=== PATIENT | male | born 1960 | race Caucasian/White ===

== ENCOUNTER 2017-09-28 09:51 | Day surgery (SDC) | payer OTHER ==
[2017-08-27 14:03] VITALS: BMI 28.7
[~2017-09-28 09:51] MED LIST: LACTATED RINGERS 1,000 ML IV SCH; SODIUM CHLORIDE 0.9% 1,000 ML IV SCH; ceFAZolin 1,000 MG in SODIUM CHLORIDE 0.9% IRRIGATIO 250 ML IRRIGATION ONE; ceFAZolin IN SWFI 2 GM/20 ML SYRINGE IVP ONE
[2017-09-28] MEDS ORDERED: INSULIN ASPART 100 UNIT/ML 1 ML 10 ML VIAL SQ ONE (10:34)
[2017-09-28 10:44] LABS: Glucose,Whole Blood 272 mg/dL (75-99)
[2017-09-28 11:18] LABS: Anisocytosis Slight; Basophils # (A) 0.1 k/uL (0-0.2); Basophils % (A) 1 %; Eosinophils # (A) 0.2 k/uL (0-0.7); Eosinophils % (A) 2 %; HCT 46.9 % (39.0-53.0); Lymphocytes # (A) 1.2 k/uL (1.0-4.8); Lymphocytes % (A) 15 %; MCHC 34.1 g/dL (31.0-37.0); MCV 82.3 fL (80.0-100.0); Mean Platelet Volume 6.2; Monocytes # (A) 0.5 k/uL (0-1.0); Monocytes % (A) 7 %; Neutrophils # (A) 5.8 k/uL (1.3-7.7); Neutrophils % (A) 74 %; Platelet Count 193 k/uL (150-450); RDW 16.3 % (11.5-15.5); WBC 7.9 k/uL (3.8-10.6)
[2017-09-28 11:20] LABS: Anion Gap 14 mmol/L; Blood Urea Nitrogen 15 mg/dL (9-20); Calcium 9.4 mg/dL (8.4-10.2); Carbon Dioxide 24 mmol/L (22-30); Chloride 105 mmol/L (98-107); Glucose 306 mg/dL (74-99); Potassium 4.9 mmol/L (3.5-5.1); Sodium 143 mmol/L (137-145)
[2017-09-28] MEDS ORDERED: fentaNYL (PF) 50 MCG/ML 2 ML AMP ONE (12:09)
[2017-09-28] MEDS ORDERED: MIDAZOLAM 2 MG/2 ML VIAL ONE (12:09)
[2017-09-28] MEDS ORDERED: IOPAMIDOL-250 50ML BTL IV ONE (12:20)
[2017-09-28] MEDS ORDERED: IOPAMIDOL-370 50ML BTL INJ ONE ×2 (12:20)
[2017-09-28] MEDS ORDERED: LIDOCAINE 1% INJ 10MG/ML (20 ML MDV) ONE ×2 (12:32→12:57)
[2017-09-28] MEDS ORDERED: LIDOCAINE 1% INJ 10MG/ML (20 ML MDV) SQ ONE ×4 (12:47→12:59)
[2017-09-28] MEDS ORDERED: ACETAMINOPHEN IV (For NPO) 1,000 MG in EMPTY BAG 1 BAG IVPB ONE (14:25)
[2017-09-28] MEDS ORDERED: ACETAMINOPHEN TAB 325 MG TAB PO PRN (14:25)
--- NOTE | 2017-09-28 14:57 | CE ---
CARDIAC ELECTROPHYSIOLOGY REPORT Mr. Adams is a 57-year-old male patient who has severe ischemic cardiomyopathy, status post revascularization in the past, old ID, chronic LV systolic dysfunction, who has an ejection fraction of 29%, on medical treatment and was advised a single-chamber ICD for primary prevention of sudden cardiac . Patient is brought to the EP lab in a fasting state. Written informed consent was obtained prior to the procedure. The left shoulder area was prepped and draped as per protocol; 1% lidocaine was used for local anesthesia. An incision was made in the left pectoral area above his tattoo to avoid the tattoo and carried down to the level of the pectoralis muscle. A subfascial pocket was made. Hemostasis was assured. The left axillary vein was accessed at a single point under fluoroscopy and via appropriately- sized introducer sheath, the lead was positioned in the right heart. The Medtronic lead was positioned in the RV septum. This is a model #6935M, 62 cm length and serial number [id number]. R-waves were 10 mV, pacing impedance 653 ohms, pacing threshold 0.4 V at 0.5 milliseconds. Current was 0.5 milliamperes. The lead was secured to the underlying pectoralis fascia using 2 nonabsorbable sutures. Pocket was irrigated with antibiotic solution. Lead was connected through the generator (Medtronic single- chamber ICD, [id number], serial #[id number]. This was positioned in the subfascial pocket and the wound was closed in 3 layers and dressed per protocol. RESULTS: Successful single-chamber ICD implantation. DFT testing was deferred until 3 months. PLAN: Continue current medications. IV antibiotics and DFT testing in 3 months. MMODL / IJN: [id number] /
[2017-09-28] MEDS ORDERED: ceFAZolin IN SWFI 2 GM/20 ML SYRINGE IVP STA (17:09)
[2017-09-28] MEDS: LACTATED RINGERS 1,000 ML IV SCH (17:15)
[2017-09-28 17:17] LABS: Glucose,Whole Blood 221 mg/dL (75-99)
[2017-09-28] MEDS: glipiZIDE 10 MG TAB PO SCH (18:05)
[2017-09-28] MEDS: METOPROLOL TARTRATE 50 MG TAB PO SCH (20:20)
[2017-09-28 20:22] LABS: Glucose,Whole Blood 246 mg/dL (75-99)
[2017-09-28] MEDS ORDERED: ATORVASTATIN 40 MG TAB PO SCH (21:00)
[2017-09-28] MEDS: HYDROcodone/APAP 7.5-325MG 1 EACH TAB PO PRN (21:16)
[2017-09-28] MEDS: ceFAZolin IN SWFI 2 GM/20 ML SYRINGE IVP SCH (22:45)
[2017-09-29 03:28] VITALS: TEMP 97.8
[2017-09-29] MEDS: HYDROcodone/APAP 7.5-325MG 1 EACH TAB PO PRN (04:46)
[2017-09-29] MEDS: ceFAZolin IN SWFI 2 GM/20 ML SYRINGE IVP SCH ×2 (04:47→11:03)
[2017-09-29] MEDS ORDERED: ceFAZolin IN SWFI 2 GM/20 ML SYRINGE IVP SCH ×2 (05:00→11:00)
[2017-09-29 07:02] LABS: Glucose,Whole Blood 254 mg/dL (75-99)
[2017-09-29 07:32] VITALS: BP 157/90; PULSE 74; RESP 18
[2017-09-29] MEDS: METOPROLOL TARTRATE 50 MG TAB PO SCH (08:00)
[2017-09-29] MEDS: glipiZIDE 10 MG TAB PO SCH (08:01)
--- NOTE | 2017-09-29 08:12 | XR ---
EXAMINATION TYPE: XR chest 2V DATE OF EXAM: 09/29/2017 COMPARISON: Prior chest x-ray 02/27/2017 HISTORY: Lead placement check TECHNIQUE: Frontal and lateral views of the chest are obtained. FINDINGS: Intracardiac defibrillator lead is overlying the right ventricle, patient post sternotomy. Heart size is stable. No evident pneumothorax or pleural effusion. Interstitium is prominent. Apical pleural scarring is again noted. Prominent lung volumes suggest underlying COPD. IMPRESSION: No evident complication status post defibrillator placement.
[2017-09-29] MEDS ORDERED: FLUoxetine HCL 20 MG CAP PO SCH (09:00)
[2017-09-29] MEDS ORDERED: CLOPIDOGREL 75 MG TAB PO SCH (09:00)
[2017-09-29] MEDS ORDERED: EMPAGLIFLOZIN PO SCH (09:00)
[2017-09-29] MEDS ORDERED: FUROSEMIDE 20 MG TAB PO SCH (09:00)
[2017-09-29] MEDS ORDERED: ASPIRIN 325 MG TAB PO SCH (09:00)
[2017-09-29] MEDS ORDERED: POTASSIUM CHLORIDE ER 20 MEQ TAB.ER PO SCH (09:00)
[2017-09-29] MEDS ORDERED: ISOSORBIDE MONONITRATE ER 30 MG TAB.ER.24H PO SCH (09:00)
[2017-09-29] MEDS ORDERED: LOSARTAN 50 MG TAB PO SCH (09:00)
[2017-09-29] MEDS ORDERED: LINAGLIPTIN PO SCH (09:00)
--- NOTE | 2017-09-29 09:42 | P.DS ---
Providers Attending physician: Zak Dow Primary care physician: [facility] Course: Patient is doing well. He has no chest discomfort dizziness lightheadedness. He's ablating the hallways. There is a bit of soakage of the dressing but there is no hematoma. Blood pressure 157/90 mmHg pulse rate in the 70s afebrile heart sounds are normal normal S1 normal S2 no murmurs or gallops no rub breath sounds are clear no rhonchi no crackles Abdomen soft nontender Extremity is a warm no edema Impression Severe ischemic cardio myopathy, status post single chamber ICD implant Hypertension Old MS CHF class II Status post coronary artery bypass grafting Suggest Top metoprolol and start carvedilol 6.25 mg twice daily Stop oral potassium Start Aldactone 25 g by mouth daily Discharge home after completion of IV antibiotics Patient Condition at Discharge: Stable Plan - Discharge Summary Discharge Rx Participant: No New Discharge Prescriptions: No Action Aspirin 325 mg PO DAILY #30 tab Clopidogrel [Plavix] 75 mg PO DAILY #30 tab Isosorbide Mononitrate ER [Imdur] 30 mg PO DAILY #30 tab.er.24h Losartan [Cozaar] 50 mg PO DAILY #30 tab Metoprolol Tartrate [Lopressor] 50 mg PO BID #60 tab Furosemide [Lasix] 20 mg PO DAILY #30 tab Umeclidinium Brm/Vilanterol Tr [Anoro Ellipta 62.5-25 Mcg INH] 1 puff INHALATION DAILY Hydrocodone/Acetaminophen [[place] 7.5-325] 1 tab PO Q8HR PRN PRN Reason: Pain Empagliflozin/Linagliptin [Glyxambi 25 mg-5 mg Tablet] 1 each PO DAILY FLUoxetine HCL 20 mg PO DAILY Atorvastatin [Lipitor] 40 mg PO HS glipiZIDE [Glucotrol] 10 mg PO BID Potassium Chloride ER [K-Dur 10] 20 meq PO DAILY Discharge Medication List Aspirin 325 mg PO DAILY #30 tab 02/13/17 [Rx] Clopidogrel [Plavix] 75 mg PO DAILY #30 tab 02/13/17 [Rx] Furosemide [Lasix] 20 mg PO DAILY #30 tab 02/13/17 [Rx] Isosorbide Mononitrate ER [Imdur] 30 mg PO DAILY #30 tab.er.24h 02/13/17 [Rx] Losartan [Cozaar] 50 mg PO DAILY #30 tab 02/13/17 [Rx] Metoprolol Tartrate [Lopressor] 50 mg PO BID #60 tab 02/13/17 [Rx] Atorvastatin [Lipitor] 40 mg PO HS 08/27/17 [History] Empagliflozin/Linagliptin [Glyxambi 25 mg-5 mg Tablet] 1 each PO DAILY 08/27/17 [History] FLUoxetine HCL 20 mg PO DAILY 08/27/17 [History] Hydrocodone/Acetaminophen [[place] 7.5-325] 1 tab PO Q8HR PRN 08/27/17 [History] Potassium Chloride ER [K-Dur 10] 20 meq PO DAILY 08/27/17 [History] Umeclidinium Brm/Vilanterol Tr [Anoro Ellipta 62.5-25 Mcg INH] 1 puff INHALATION DAILY 08/27/17 [History] glipiZIDE [Glucotrol] 10 mg PO BID 08/27/17 [History]
== END 2017-09-29 12:19 | disposition home or self-care (01) ==
LOC: CATHEP 09:51 → 3OBS 13:46 → CATHEP 09-29 12:19
PROVIDERS: ATTEND Internal Medicine Clinical Cardiac Electrophysiology
DX: I25.5 Ischemic cardiomyopathy (principal); I11.0 Hypertensive heart disease with heart failure; I50.22 Chronic systolic (congestive) heart failure; Z00.6 Encounter for examination for normal comparison and control in clinical research program; I25.10 Atherosclerotic heart disease of native coronary artery without angina pectoris; E78.5 Hyperlipidemia, unspecified; E11.9 Type 2 diabetes mellitus without complications; I25.2 Old myocardial infarction; Z95.1 Presence of aortocoronary bypass graft; Z79.84 Long term (current) use of oral hypoglycemic drugs; Z79.02 Long term (current) use of antithrombotics/antiplatelets; Z79.82 Long term (current) use of aspirin; Z79.899 Other long term (current) drug therapy; Z79.51 Long term (current) use of inhaled steroids; Z87.891 Personal history of nicotine dependence
CPT/HCPCS: 33249; 80048; 85025; 71046; C1769 ×3; C1892; C1895; C1722; J2250; J0690 ×3; J2001; J3010; J0131; Q9966

== ENCOUNTER → 2017-12-18 | Outpatient (CLI) | payer OTHER ==
[2017-12-18 14:04] LABS: HGB 14.8 gm/dL (13.0-17.5); MCH 27.6 pg (25.0-35.0); MCHC 32.1 g/dL (31.0-37.0); Platelet Count 185 k/uL (150-450); RBC 5.35 m/uL (4.30-5.90); RDW 14.2 % (11.5-15.5); WBC 6.8 k/uL (3.8-10.6)
[2017-12-18 14:22] LABS: Anion Gap 10 mmol/L; Blood Urea Nitrogen 19 mg/dL (9-20); Carbon Dioxide 27 mmol/L (22-30); Chloride 106 mmol/L (98-107); Glucose 260 mg/dL (74-99); Sodium 143 mmol/L (137-145)
== END | disposition home or self-care (01) ==
LOC: LABPAT 13:00
PROVIDERS: ATTEND Internal Medicine Clinical Cardiac Electrophysiology
DX: Z01.812 Encounter for preprocedural laboratory examination (principal); I25.5 Ischemic cardiomyopathy; I25.810 Atherosclerosis of coronary artery bypass graft(s) without angina pectoris
CPT/HCPCS: 36415; 80051; 82565; 82947; 84520; 85027

== ENCOUNTER 2017-12-29 06:00 | Day surgery (SDC) | payer OTHER ==
[2017-12-28 12:05] VITALS: BMI 28.5
[~2017-12-29 06:00] MED LIST changes: -SODIUM CHLORIDE 0.9% 1,000 ML IV SCH; -ceFAZolin 1,000 MG in SODIUM CHLORIDE 0.9% IRRIGATIO 250 ML IRRIGATION ONE; -ceFAZolin IN SWFI 2 GM/20 ML SYRINGE IVP ONE
[2017-12-29] MEDS ORDERED: SODIUM CHLORIDE 0.9% 1,000 ML IV SCH (06:15)
[2017-12-29 06:31] VITALS: TEMP 99.1
[2017-12-29 07:11] LABS: Glucose,Whole Blood 186 mg/dL (75-99)
[2017-12-29] MEDS ORDERED: MIDAZOLAM 2 MG/2 ML VIAL ONE (07:21)
[2017-12-29] MEDS ORDERED: PROPOFOL 10 MG/ML 20 ML VIAL IV ONE (07:21)
[2017-12-29 08:08] VITALS: RESP 18
--- NOTE | 2017-12-29 08:33 | P.PCN ---
Preoperative Diagnosis: Diagnosis Congestive heart failure and cardio myopathy status post ICD implant in the last 3 months. Patient admitted for defibrillation level testing Patient on appropriate medical treatment ICD interrogation Patient has a Medtronic single chamber ICD single coil that was implanted on 11/2017 by myself Pacing impedance 475 ohms Defibrillation impedance, RV, 62 ohms Pacing threshold 0.75 V at 0.4 ms R waves greater than 12 mV Defibrillation level testing was performed under anesthesia A shock on T wave protocol was used to induce ventricular fibrillation. This was adequately and appropriately detected at least sensitivity with 2-3 dropouts but unsuccessfully defibrillated with 10 J shock and once again unsuccessfully defibrillated with a 20 J shock. External shock was used to defibrillated the patient The charge time was 4.1 seconds delivered energy 20 J impedance 60 ohms After 3 minutes once the patient's blood pressure stabilized defibrillation level testing was once again performed in reverse polarity. Ventricular fibrillation was induced and detected with up to 3 dropouts. A 20 J shock in reverse polarity was unsuccessful. A 30 J shock in reverse polarity successfully internally defibrillated the patient. Charge time 6.34 seconds, shocking impedance 60 ohms, delivered energy 30 J. No post shock noise Device was then reprogrammed in reverse polarity Appropriate antitachycardia pacing cardioversion defibrillations reprogrammed. First cardioversion and defibrillation at maximum output as well as subsequently. Sensitivity reprogrammed to 0.3 mV Plan Continue current medications, follow-up with Dr. Becker Repeat DFT in one year Disposition: same day
[2017-12-29 08:43] VITALS: BP 141/77; PULSE 66
[2017-12-29] MEDS ORDERED: MORPHINE SULFATE 4 MG/ML SYRINGE IV PRN (21:43)
[2017-12-29] MEDS ORDERED: LACTATED RINGERS 1,000 ML IV SCH (21:45)
== END 2017-12-29 08:46 | disposition home or self-care (01) ==
LOC: CATHEP 06:00
PROVIDERS: ATTEND Internal Medicine Clinical Cardiac Electrophysiology
DX: I25.5 Ischemic cardiomyopathy (principal); I25.10 Atherosclerotic heart disease of native coronary artery without angina pectoris; I11.0 Hypertensive heart disease with heart failure; I50.9 Heart failure, unspecified; Z87.891 Personal history of nicotine dependence; I25.2 Old myocardial infarction; E78.5 Hyperlipidemia, unspecified; Z79.84 Long term (current) use of oral hypoglycemic drugs; E11.9 Type 2 diabetes mellitus without complications; Z45.02 Encounter for adjustment and management of automatic implantable cardiac defibrillator; G47.33 Obstructive sleep apnea (adult) (pediatric); Z99.89 Dependence on other enabling machines and devices; Z79.02 Long term (current) use of antithrombotics/antiplatelets; Z79.82 Long term (current) use of aspirin; Z79.899 Other long term (current) drug therapy
CPT/HCPCS: 93642; 76000; J2250; J2704

== ENCOUNTER 2018-03-12 16:34 | Emergency (ER) | payer OTHER ==
[2018-03-12 16:39] VITALS: RESP 18
[2018-03-12] MEDS ORDERED: SODIUM CHLORIDE 0.9% 1,000 ML IV STA (17:18)
[2018-03-12 17:58] LABS: INR 0.9 (<1.2); Partial Thromboplastin Time 23.6 sec (22.0-30.0); Prothrombin Time 10.2 sec (9.0-12.0)
[2018-03-12 18:01] LABS: ALT 48 U/L (21-72); AST 52 U/L (17-59); Alkaline Phosphatase 66 U/L (38-126); Amylase 37 U/L (30-110); Anion Gap 10 mmol/L; Blood Urea Nitrogen 9 mg/dL (9-20); Calcium 9.1 mg/dL (8.4-10.2); Carbon Dioxide 22 mmol/L (22-30); Chloride 107 mmol/L (98-107); Glucose 166 mg/dL (74-99); Lipase 95 U/L (23-300); Sodium 139 mmol/L (137-145); Total Bilirubin 0.6 mg/dL (0.2-1.3); Total Protein 6.8 g/dL (6.3-8.2)
[2018-03-12 18:08] LABS: Appearance,Urine Cloudy (Clear); Bilirubin,Urine Negative (Negative); Blood,Urine Large (Negative); Budding Yeast,Urine Many /hpf; Color,Urine Red; Glucose,Urine (UA) 4+ (Negative); Ketones,Urine Trace (Negative); Leukocyte Esterase,Urine Trace (Negative); Nitrite,Urine Negative (Negative); PH, Urine 5.5 (5.0-8.0); Protein,Urine 1+ (Negative); RBC,Urine >182 /hpf (0-5); Specific Gravity,Urine 1.023 (1.001-1.035); Urobilinogen,Urine <2.0 mg/dL (<2.0); WBC,Urine 1 /hpf (0-5)
--- NOTE | 2018-03-12 18:15 | CT ---
EXAMINATION TYPE: CT abdomen pelvis wo con DATE OF EXAM: 03/12/2018 COMPARISON: None HISTORY: Hematuria. CT DLP: 694.3 mGycm Automated exposure control for dose reduction was used. TECHNIQUE: Helical acquisition of images was performed from the lung bases through the pelvis. FINDINGS: Lung bases are clear. There is no pleural effusion. Heart size is normal. There is no pericardial eff usion. There is low attenuation throughout the liver related to fatty infiltration. Spleen appears normal. T here is no pancreatic mass. There is vascular calcification. Gallbladder appears normal. Bile ducts a re not dilated. There is no adrenal mass. There is 3 cm cortical cyst posterior left kidney. There are multiple renal calcifications bilaterally. There is no hydronephrosis. Ureters are not dilated. There is no retrope ritoneal adenopathy. Abdominal aorta is atheromatous. Bladder distends smoothly. There is prostatic calcification. There is no inguinal hernia. There is no free fluid in the pelvis. I see no intestinal wall thickening. There are no dilated loops. The appen nu appears normal. There is no mesenteric edema or adenopathy. IMPRESSION: FATTY INFILTRATION OF LIVER. ATHEROSCLEROTIC VASCULAR DISEASE. NUMEROUS BILATERAL RENAL CALCULI WITHO UT EVIDENCE OF OBSTRUCTION.
--- NOTE | 2018-03-12 18:15 | ED ---
Abdominal Pain HPI - General Chief Complaint: Abdominal Pain Stated Complaint: Blood in Urine Time Seen by Provider: 03/12/18 17:03 Source: patient, RN notes reviewed Mode of arrival: ambulatory Limitations: no limitations - History of Present Illness Initial Comments: 58-year-old male presents emergency Department with chief complaint of hematuria. Patient states she's noticed several times a day that he had blood in his urine. He states it is painless. Denies any prior kidney stones no prior prostate infections or bladder infections. Patient states he has no complaints other than he noticed the blood. Patient does take Plavix. Patient states he is a former smoker quit one year ago. Patient denies any nausea and diarrhea constipation no headache no dizziness no chest pain or shortness breath. - Related Data Home Medications Medication Instructions Recorded Confirmed Empagliflozin/Linagliptin 1 tab PO DAILY 08/27/17 03/12/18 [Glyxambi 25 mg-5 mg Tablet] FLUoxetine HCL 20 mg PO DAILY 08/27/17 03/12/18 Hydrocodone/Acetaminophen [[place] 1 tab PO TID 08/27/17 03/12/18 7.5-325] glipiZIDE [Glucotrol] 10 mg PO BID 08/27/17 03/12/18 Furosemide [Lasix] 40 mg PO DAILY 12/28/17 03/12/18 Aspirin [Adult Low Dose Aspirin EC] 81 mg PO DAILY 03/12/18 03/12/18 Atorvastatin [Lipitor] 80 mg PO HS 03/12/18 03/12/18 Carvedilol [Coreg] 9.375 mg PO BID 03/12/18 03/12/18 Previous Rx's Medication Instructions Recorded Clopidogrel [Plavix] 75 mg PO DAILY #30 tab 02/13/17 Isosorbide Mononitrate ER [Imdur] 30 mg PO DAILY #30 tab.er.24h 02/13/17 Losartan [Cozaar] 50 mg PO DAILY #30 tab 02/13/17 Spironolactone [Aldactone] 25 mg PO DAILY #90 tablet 09/29/17 Allergies Allergy/AdvReac Type Severity Reaction Status Date / Time No Known Allergies Allergy Verified 03/12/18 17:27 Review of Systems ROS Statement: Those systems with pertinent positive or pertinent negative responses have been documented in the HPI. ROS Other: All systems not noted in ROS Statement are negative. Past Medical History Past Medical History: Coronary Artery Disease (CAD), COPD, Diabetes Mellitus, Hyperlipidemia, Hypertension, Myocardial Infarction (MA), Musculoskeletal Disorder, Sleep Apnea/CPAP/BIPAP Additional Past Medical History / Comment(s): CMP; HAS AICD. See Dr Dow's H &P. LOWER BACK, HIP PAIN, R/T HX MANUAL LABOR. USES CPAP. HX MA's 1997, 2004 , 2010, 2016 Last Myocardial Infarction Date:: 01/2017 History of Any Multi-Drug Resistant Organisms: None Reported Past Surgical History: AICD, Coronary Bypass/CABG, Heart Catheterization With Stent Additional Past Surgical History / Comment(s): 1 VESSEL CABG 01/2017. STENT X3. Hemorrhoidectomy. AICD, [employer], 10/08/17. Past Anesthesia/Blood Transfusion Reactions: No Reported Reaction Date of Last Stent Placement:: 2016 Type of Cardiac Device: AICD Device Placement Date:: 09/28/17 Past Psychological History: Depression Smoking Status: Former smoker Past Alcohol Use History: None Reported Past Drug Use History: Marijuana - Past Family History Father Family Medical History: Cancer Mother Family Medical History: Coronary Artery Disease (CAD), Diabetes Mellitus Brother(s) Family Medical History: Coronary Artery Disease (CAD), Diabetes Mellitus General Exam Limitations: no limitations General appearance: alert, in no apparent distress Head exam: Present: atraumatic, normocephalic, normal inspection Eye exam: Present: normal appearance, PERRL, EOMI. Absent: scleral icterus, conjunctival injection, periorbital swelling Respiratory exam: Present: normal lung sounds bilaterally. Absent: respiratory distress, wheezes, rales, rhonchi, stridor Cardiovascular Exam: Present: regular rate, normal rhythm, normal heart sounds. Absent: systolic murmur, diastolic murmur, rubs, gallop, clicks GI/Abdominal exam: Present: soft, normal bowel sounds. Absent: distended, tenderness, guarding, rebound, rigid Back exam: Absent: CVA tenderness (R), CVA tenderness (L) Psychiatric exam: Present: normal affect, normal mood Skin exam: Present: warm, dry, intact, normal color. Absent: rash Course Vital Signs 03/12/18 03/12/18 16:36 18:47 Temperature 97.4 F L 98.2 F Pulse Rate 85 69 Respiratory 18 18 Rate Blood Pressure 181/94 119/69 O2 Sat by Pulse 99 100 Oximetry Medical Decision Making - Medical Decision Making 58-year-old male presents emergency Department chief complaint of painless hematuria. Patient lab work, CT. There is no definite mass on CT. Patient does have bilateral renal stones though no obstructing stone in the ureter. Patient has no signs of infection. Patient will follow-up with urology for cystoscopy and further evaluation as he is a former smoker. Patient was given return parameters all labs and CT reviewed with patient and family. - Lab Data Result diagrams: 03/12/18 17:30 03/12/18 17:30 Lab Results 03/12/18 03/12/18 03/12/18 Range/Units 17:30 17:30 17:30 WBC 5.8 (3.8-10.6) k/uL RBC 5.31 (4.30-5.90) m/uL Hgb 14.9 (13.0-17.5) gm/dL Hct 45.0 (39.0-53.0) % MCV 84.8 (80.0-100.0) fL MCH 28.1 (25.0-35.0) pg MCHC 33.1 (31.0-37.0) g/dL RDW 13.9 (11.5-15.5) % Plt Count 160 (150-450) k/uL Neutrophils % 70 % Lymphocytes % 18 % Monocytes % 6 % Eosinophils % 3 % Basophils % 1 % Neutrophils # 4.1 (1.3-7.7) k/uL Lymphocytes # 1.1 (1.0-4.8) k/uL Monocytes # 0.4 (0-1.0) k/uL Eosinophils # 0.2 (0-0.7) k/uL Basophils # 0.1 (0-0.2) k/uL PT 10.2 (9.0-12.0) sec INR 0.9 (<1.2) APTT 23.6 (22.0-30.0) sec Sodium 139 (137-145) mmol/L Potassium 5.0 (3.5-5.1) mmol/L Chloride 107 (98-107) mmol/L Carbon Dioxide 22 (22-30) mmol/L Anion Gap 10 mmol/L BUN 9 (9-20) mg/dL Creatinine 0.65 L (0.66-1.25) mg/dL Est GFR (CKD-EPI)AfAm >90 (>60 ml/min/1.73 sqM) Est GFR (CKD-EPI)NonAf >90 (>60 ml/min/1.73 sqM) Glucose 166 H (74-99) mg/dL Calcium 9.1 (8.4-10.2) mg/dL Total Bilirubin 0.6 (0.2-1.3) mg/dL AST 52 (17-59) U/L ALT 48 (21-72) U/L Alkaline Phosphatase 66 (38-126) U/L Total Protein 6.8 (6.3-8.2) g/dL Albumin 4.0 (3.5-5.0) g/dL Amylase 37 (30-110) U/L Lipase 95 (23-300) U/L Urine Color Urine Appearance (Clear) Urine pH (5.0-8.0) Ur Specific [place] (1.001-1.035) Urine Protein (Negative) Urine Glucose (UA) (Negative) Urine Ketones (Negative) Urine Blood (Negative) Urine Nitrite (Negative) Urine Bilirubin (Negative) Urine Urobilinogen (<2.0) mg/dL Ur Leukocyte Esterase (Negative) Urine RBC (0-5) /hpf Urine WBC (0-5) /hpf Urine Yeast (Budding) (None) /hpf 03/12/18 Range/Units 17:30 WBC (3.8-10.6) k/uL RBC (4.30-5.90) m/uL Hgb (13.0-17.5) gm/dL Hct (39.0-53.0) % MCV (80.0-100.0) fL MCH (25.0-35.0) pg MCHC (31.0-37.0) g/dL RDW (11.5-15.5) % Plt Count (150-450) k/uL Neutrophils % % Lymphocytes % % Monocytes % % Eosinophils % % Basophils % % Neutrophils # (1.3-7.7) k/uL Lymphocytes # (1.0-4.8) k/uL Monocytes # (0-1.0) k/uL Eosinophils # (0-0.7) k/uL Basophils # (0-0.2) k/uL PT (9.0-12.0) sec INR (<1.2) APTT (22.0-30.0) sec Sodium (137-145) mmol/L Potassium (3.5-5.1) mmol/L Chloride (98-107) mmol/L Carbon Dioxide (22-30) mmol/L Anion Gap mmol/L BUN (9-20) mg/dL Creatinine (0.66-1.25) mg/dL Est GFR (CKD-EPI)AfAm (>60 ml/min/1.73 sqM) Est GFR (CKD-EPI)NonAf (>60 ml/min/1.73 sqM) Glucose (74-99) mg/dL Calcium (8.4-10.2) mg/dL Total Bilirubin (0.2-1.3) mg/dL AST (17-59) U/L ALT (21-72) U/L Alkaline Phosphatase (38-126) U/L Total Protein (6.3-8.2) g/dL Albumin (3.5-5.0) g/dL Amylase (30-110) U/L Lipase (23-300) U/L Urine Color Red Urine Appearance Cloudy (Clear) Urine pH 5.5 (5.0-8.0) Ur Specific [place] 1.023 (1.001-1.035) Urine Protein 1+ H (Negative) Urine Glucose (UA) 4+ H (Negative) Urine Ketones Trace H (Negative) Urine Blood Large H (Negative) Urine Nitrite Negative (Negative) Urine Bilirubin Negative (Negative) Urine Urobilinogen <2.0 (<2.0) mg/dL Ur Leukocyte Esterase Trace H (Negative) Urine RBC >182 H (0-5) /hpf Urine WBC 1 (0-5) /hpf Urine Yeast (Budding) Many H (None) /hpf Disposition Clinical Impression: Hematuria Disposition: HOME SELF-CARE Condition: Stable Instructions: Hematuria (ED) Additional Instructions: Please return to the Emergency Department if symptoms worsen or any other concerns. Is patient prescribed a controlled substance at d/c from ED?: No Referrals: Mike Olivera MD [Primary Care Provider] - 1-2 days Jb Snow MD [STAFF PHYSICIAN] - 1-2 days Time of Disposition: 19:20
[2018-03-12 18:48] VITALS: BP 119/69; PULSE 69; TEMP 98.2
[2018-03-12 19:09] LABS: Basophils # (A) 0.1 k/uL (0-0.2); Basophils % (A) 1 %; Eosinophils # (A) 0.2 k/uL (0-0.7); Eosinophils % (A) 3 %; HGB 14.9 gm/dL (13.0-17.5); Lymphocytes # (A) 1.1 k/uL (1.0-4.8); Lymphocytes % (A) 18 %; MCH 28.1 pg (25.0-35.0); MCHC 33.1 g/dL (31.0-37.0); MCV 84.8 fL (80.0-100.0); Mean Platelet Volume 7.1; Monocytes # (A) 0.4 k/uL (0-1.0); Monocytes % (A) 6 %; Neutrophils # (A) 4.1 k/uL (1.3-7.7); Neutrophils % (A) 70 %; Platelet Count 160 k/uL (150-450); RBC 5.31 m/uL (4.30-5.90); RDW 13.9 % (11.5-15.5); WBC 5.8 k/uL (3.8-10.6)
== END 2018-03-12 19:37 | disposition home or self-care (01) ==
LOC: EC 16:34
DX: R31.9 Hematuria, unspecified (principal); N20.0 Calculus of kidney; I25.10 Atherosclerotic heart disease of native coronary artery without angina pectoris; J44.9 Chronic obstructive pulmonary disease, unspecified; E11.9 Type 2 diabetes mellitus without complications; E78.5 Hyperlipidemia, unspecified; I10 Essential (primary) hypertension; I25.2 Old myocardial infarction; G47.30 Sleep apnea, unspecified; Z99.89 Dependence on other enabling machines and devices; F32.9 Major depressive disorder, single episode, unspecified; Z87.891 Personal history of nicotine dependence; Z79.02 Long term (current) use of antithrombotics/antiplatelets; Z79.82 Long term (current) use of aspirin; Z79.891 Long term (current) use of opiate analgesic; Z79.84 Long term (current) use of oral hypoglycemic drugs; Z79.899 Other long term (current) drug therapy; Z95.1 Presence of aortocoronary bypass graft; Z95.5 Presence of coronary angioplasty implant and graft; Z95.810 Presence of automatic (implantable) cardiac defibrillator
CPT/HCPCS: 36415; 74176; 80053; 81001; 82150; 83690; 85025; 85610; 85730; 96360; 99284

== ENCOUNTER → 2018-05-26 | Outpatient (CLI) | payer OTHER ==
[2018-05-26 10:16] LABS: HCT 50.5 % (39.0-53.0); HGB 16.2 gm/dL (13.0-17.5); MCH 27.4 pg (25.0-35.0); MCHC 32.1 g/dL (31.0-37.0); MCV 85.5 fL (80.0-100.0); Mean Platelet Volume 6.4; Platelet Count 233 k/uL (150-450); RDW 14.1 % (11.5-15.5); WBC 7.5 k/uL (3.8-10.6)
[2018-05-26 17:42] LABS: Anion Gap 8.5 mmol/L (4.00-12.00); Carbon Dioxide 26.5 mmol/L (21.6-31.8); Potassium 4.5 mmol/L (3.5-5.5)
== END | disposition home or self-care (01) ==
LOC: LABWHC1 09:09
PROVIDERS: ATTEND Internal Medicine Cardiovascular Disease
DX: E78.2 Mixed hyperlipidemia (principal)
CPT/HCPCS: 36415; 80051; 80061; 82565; 84443; 84450; 84460; 84520; 85027

== ENCOUNTER 2018-06-30 11:22 | Inpatient (IN) | payer OTHER ==
--- NOTE | 2018-06-30 12:01 | ED ---
General Adult HPI - General Chief complaint: Weakness Stated complaint: Dizzy Time Seen by Provider: 06/30/18 11:31 Source: patient, RN notes reviewed, old records reviewed Mode of arrival: ambulatory Limitations: no limitations - History of Present Illness Initial comments: 58-year-old male presenting for evaluation of dyspnea, increased generalized we akness, lightheadedness. Patient has history of ischemic cardiomyopathy status post open-heart surgery and AICD placement. He is presenting from the master esthetician's office. He was sent to the emergency department with concerns for worsening congestive heart failure. Patient denies significant weight gain. He does report some mild lower extremity swelling. He is also complaining of ongoing diarrhea and some mild abdominal cramping. No vomiting. No fever or chills. No cough or URI symptoms. - Related Data Home Medications Medication Instructions Recorded Confirmed Empagliflozin/Linagliptin 1 tab PO DAILY 08/27/17 06/30/18 [Glyxambi 25 mg-5 mg Tablet] FLUoxetine HCL 20 mg PO DAILY 08/27/17 06/30/18 glipiZIDE [Glucotrol] 10 mg PO BID 08/27/17 06/30/18 Atorvastatin [Lipitor] 80 mg PO HS 03/12/18 06/30/18 Carvedilol [Coreg] 6.25 mg PO BID 03/12/18 06/30/18 Hydrocodone/Acetaminophen [[place] 1 tab PO TID PRN 06/30/18 06/30/18 10-325] Warfarin [Coumadin] 2.5 mg PO SUTUTHSA 06/30/18 06/30/18 Warfarin [Coumadin] 5 mg PO MOWEFR 06/30/18 06/30/18 Previous Rx's Medication Instructions Recorded Isosorbide Mononitrate ER [Imdur] 30 mg PO DAILY #30 tab.er.24h 02/13/17 Losartan [Cozaar] 50 mg PO DAILY #30 tab 02/13/17 Spironolactone [Aldactone] 25 mg PO DAILY #90 tablet 09/29/17 Allergies Allergy/AdvReac Type Severity Reaction Status Date / Time No Known Allergies Allergy Verified 06/30/18 11:52 Review of Systems ROS Statement: Those systems with pertinent positive or pertinent negative responses have been documented in the HPI. ROS Other: All systems not noted in ROS Statement are negative. Past Medical History Past Medical History: Coronary Artery Disease (CAD), COPD, Diabetes Mellitus, Hyperlipidemia, Hypertension, Myocardial Infarction (NE), Musculoskeletal Disorder, Sleep Apnea/CPAP/BIPAP Additional Past Medical History / Comment(s): CMP; HAS AICD. See Dr Dow's H&P. LOWER BACK, HIP PAIN, R/T HX MANUAL LABOR. USES CPAP. HX NE's 1997, 2004, 2010, 2016 Last Myocardial Infarction Date:: 01/2017 History of Any Multi-Drug Resistant Organisms: None Reported Past Surgical History: AICD, Coronary Bypass/CABG, Heart Catheterization With Stent Additional Past Surgical History / Comment(s): 1 VESSEL CABG 01/2017. STENT X3. Hemorrhoidectomy. AICD, [employer], 10/08/17. Past Anesthesia/Blood Transfusion Reactions: No Reported Reaction Date of Last Stent Placement:: 2016 Type of Cardiac Device: AICD Device Placement Date:: 09/28/17 Past Psychological History: Depression Smoking Status: Former smoker - Past Family History Father Family Medical History: Cancer Mother Family Medical History: Coronary Artery Disease (CAD), Diabetes Mellitus Brother(s) Family Medical History: Coronary Artery Disease (CAD), Diabetes Mellitus General Exam Limitations: no limitations General appearance: alert, in no apparent distress Head exam: Present: atraumatic, normocephalic Eye exam: Present: normal appearance, PERRL ENT exam: Present: mucous membranes dry Neck exam: Present: normal inspection. Absent: tenderness, meningismus Respiratory exam: Present: rales, decreased breath sounds (Bilateral bases). Absent: respiratory distress Cardiovascular Exam: Present: regular rate, normal rhythm GI/Abdominal exam: Present: soft, distended. Absent: tenderness Extremities exam: Present: pedal edema (trace) Neurological exam: Present: alert, oriented X3, CN II-XII intact. Absent: motor sensory deficit Psychiatric exam: Present: normal affect, normal mood Skin exam: Present: warm, dry, intact, pallor. Absent: cyanosis, diaphoretic Course Vital Signs 06/30/18 06/30/18 06/30/18 11:50 12:13 12:30 Temperature 97.4 F L Pulse Rate 95 96 Respiratory 16 20 Rate Blood Pressure 102/69 111/83 111/82 O2 Sat by Pulse 98 98 97 Oximetry 06/30/18 06/30/18 06/30/18 13:00 13:30 14:00 Temperature Pulse Rate 94 96 97 Respiratory 20 19 21 Rate Blood Pressure 111/84 101/72 107/76 O2 Sat by Pulse 94 L 98 96 Oximetry 06/30/18 14:30 Temperature Pulse Rate 98 Respiratory 18 Rate Blood Pressure 106/77 O2 Sat by Pulse 98 Oximetry EKG Findings - EKG Comments: EKG Findings:: EKG: Normal sinus rhythm, voltage, no ST segment elevation, rate of 96, SD interval 162, QRS duration 94, QTC 500. Medical Decision Making - Medical Decision Making 58-year-old male presenting with general weakness, dyspnea. Patient has bilateral rales and decreased breath sounds bilaterally. Chest x-ray shows pulmonary vascular congestion, bilateral pleural effusion. Patient has normal C BC, INR is supratherapeutic at 4.8. He has an elevated BNP, mildly elevated troponin likely secondary to heart failure. Patient started on IV diuretics. He will be admitted for telemetry, cardiology consultation, and IV diuresis. Case discussed with both patient's primary care physician Dr. Olivera and his master esthetician Dr. José. - Lab Data Result diagrams: 06/30/18 12:13 06/30/18 12:13 Lab Results 06/30/18 06/30/18 06/30/18 Range/Units 12:13 12:13 12:13 WBC 9.1 (3.8-10.6) k/uL RBC 4.80 (4.30-5.90) m/uL Hgb 13.1 D (13.0-17.5) gm/dL Hct 40.7 (39.0-53.0) % MCV 84.9 (80.0-100.0) fL MCH 27.4 (25.0-35.0) pg MCHC 32.2 (31.0-37.0) g/dL RDW 14.8 (11.5-15.5) % Plt Count 314 (150-450) k/uL Neutrophils % 79 % Lymphocytes % 13 % Monocytes % 5 % Eosinophils % 1 % Basophils % 1 % Neutrophils # 7.3 (1.3-7.7) k/uL Lymphocytes # 1.2 (1.0-4.8) k/uL Monocytes # 0.5 (0-1.0) k/uL Eosinophils # 0.1 (0-0.7) k/uL Basophils # 0.1 (0-0.2) k/uL Hypochromasia Moderate Poikilocytosis Slight PT (9.0-12.0) sec INR (<1.2) APTT (22.0-30.0) sec Sodium 139 (137-145) mmol/L Potassium 4.2 (3.5-5.1) mmol/L Chloride 106 (98-107) mmol/L Carbon Dioxide 22 (22-30) mmol/L Anion Gap 11 mmol/L BUN 17 (9-20) mg/dL Creatinine 0.77 (0.66-1.25) mg/dL Est GFR (CKD-EPI)AfAm >90 (>60 ml/min/1.73 sqM) Est GFR (CKD-EPI)NonAf >90 (>60 ml/min/1.73 sqM) Glucose 146 H (74-99) mg/dL Calcium 9.0 (8.4-10.2) mg/dL Magnesium 1.9 (1.6-2.3) mg/dL Total Bilirubin 1.1 (0.2-1.3) mg/dL AST 25 (17-59) U/L ALT 39 (21-72) U/L Alkaline Phosphatase 84 (38-126) U/L Troponin I (0.000-0.034) ng/mL NT-Pro-B Natriuret Pep 4310 pg/mL Total Protein 6.1 L (6.3-8.2) g/dL Albumin 3.6 (3.5-5.0) g/dL 06/30/18 06/30/18 Range/Units 12:13 12:13 WBC (3.8-10.6) k/uL RBC (4.30-5.90) m/uL Hgb (13.0-17.5) gm/dL Hct (39.0-53.0) % MCV (80.0-100.0) fL MCH (25.0-35.0) pg MCHC (31.0-37.0) g/dL RDW (11.5-15.5) % Plt Count (150-450) k/uL Neutrophils % % Lymphocytes % % Monocytes % % Eosinophils % % Basophils % % Neutrophils # (1.3-7.7) k/uL Lymphocytes # (1.0-4.8) k/uL Monocytes # (0-1.0) k/uL Eosinophils # (0-0.7) k/uL Basophils # (0-0.2) k/uL Hypochromasia Poikilocytosis PT 46.5 H (9.0-12.0) sec INR 4.8 H (<1.2) APTT 34.9 H (22.0-30.0) sec Sodium (137-145) mmol/L Potassium (3.5-5.1) mmol/L Chloride (98-107) mmol/L Carbon Dioxide (22-30) mmol/L Anion Gap mmol/L BUN (9-20) mg/dL Creatinine (0.66-1.25) mg/dL Est GFR (CKD-EPI)AfAm (>60 ml/min/1.73 sqM) Est GFR (CKD-EPI)NonAf (>60 ml/min/1.73 sqM) Glucose (74-99) mg/dL Calcium (8.4-10.2) mg/dL Magnesium (1.6-2.3) mg/dL Total Bilirubin (0.2-1.3) mg/dL AST (17-59) U/L ALT (21-72) U/L Alkaline Phosphatase (38-126) U/L Troponin I 0.089 H* (0.000-0.034) ng/mL NT-Pro-B Natriuret Pep pg/mL Total Protein (6.3-8.2) g/dL Albumin (3.5-5.0) g/dL Disposition Clinical Impression: CHF (congestive heart failure) Disposition: ADMITTED IP TO THIS [facility] Condition: Stable Is patient prescribed a controlled substance at d/c from ED?: No Referrals: Mike Olivera MD [Primary Care Provider] - 1-2 days Decision to Admit Reason: Admit from EC Decision Date: 06/30/18 Decision Time: 14:35
[2018-06-30 12:41] LABS: ALT 39 U/L (21-72); AST 25 U/L (17-59); Albumin 3.6 g/dL (3.5-5.0); Alkaline Phosphatase 84 U/L (38-126); Anion Gap 11 mmol/L; Blood Urea Nitrogen 17 mg/dL (9-20); Carbon Dioxide 22 mmol/L (22-30); Chloride 106 mmol/L (98-107); Glucose 146 mg/dL (74-99); Magnesium 1.9 mg/dL (1.6-2.3); Potassium 4.2 mmol/L (3.5-5.1); Sodium 139 mmol/L (137-145); Total Bilirubin 1.1 mg/dL (0.2-1.3); Total Protein 6.1 g/dL (6.3-8.2)
[2018-06-30 12:48] LABS: INR 4.8 (<1.2); Partial Thromboplastin Time 34.9 sec (22.0-30.0); Prothrombin Time 46.5 sec (9.0-12.0)
[2018-06-30 12:51] LABS: Basophils # (A) 0.1 k/uL (0-0.2); Basophils % (A) 1 %; Eosinophils # (A) 0.1 k/uL (0-0.7); Eosinophils % (A) 1 %; HCT 40.7 % (39.0-53.0); Hypochromasia Moderate; Lymphocytes # (A) 1.2 k/uL (1.0-4.8); Lymphocytes % (A) 13 %; MCH 27.4 pg (25.0-35.0); MCHC 32.2 g/dL (31.0-37.0); MCV 84.9 fL (80.0-100.0); Mean Platelet Volume 7.1; Monocytes # (A) 0.5 k/uL (0-1.0); Monocytes % (A) 5 %; Neutrophils # (A) 7.3 k/uL (1.3-7.7); Neutrophils % (A) 79 %; Platelet Count 314 k/uL (150-450); Poikilocytosis Slight; RDW 14.8 % (11.5-15.5); WBC 9.1 k/uL (3.8-10.6)
[2018-06-30 12:58] LABS: HGB 13.1 gm/dL (13.0-17.5)
--- NOTE | 2018-06-30 13:20 | XR ---
EXAMINATION TYPE: XR chest 2V DATE OF EXAM: 06/30/2018 COMPARISON: 09/29/2017 HISTORY: Difficulty breathing TECHNIQUE: Frontal and lateral views of the chest are obtained. FINDINGS: There are new trace pleural effusions, mild pulmonary vascular congestion and minimal inte rstitial edema. Cardia mediastinal silhouette is enlarged with post CABG change in single lead left-s ided cardiac device. Osseous structures are grossly intact with exaggerated thoracic kyphosis and mil d multilevel degenerative changes of the thoracic spine. IMPRESSION: New mild pulmonary vascular congestion, interstitial edema and trace pleural effusions l ikely in the basis of decompensated congestive heart failure.
[2018-06-30] MEDS ORDERED: FUROSEMIDE 10 MG/ML 4 ML VIAL IV STA (13:44)
[2018-06-30] MEDS ORDERED: ASPIRIN 325 MG TAB PO STA (13:44)
[2018-06-30] MEDS ORDERED: ACETAMINOPHEN TAB 325 MG TAB PO PRN (14:30)
[2018-06-30] MEDS ORDERED: NALOXONE 0.4 MG/ML 1 ML VIAL IV PRN (14:30)
[2018-06-30] MEDS: CARVEDILOL 6.25 MG TAB PO SCH (18:13)
[2018-06-30] MEDS: FUROSEMIDE 10 MG/ML 4 ML VIAL IV SCH (20:15)
[2018-06-30] MEDS: ATORVASTATIN 80 MG TAB PO SCH (20:15)
[2018-06-30] MEDS: HYDROcodone/APAP 10-325MG 1 EACH TAB PO PRN (20:15)
--- NOTE | 2018-06-30 22:57 | HP ---
HISTORY AND PHYSICAL CHIEF COMPLAINT: 58-year-old white male admitted with dyspnea, weakness, lightheadedness, ischemic cardiomyopathy, status post open heart surgery, AICD placement, came into the hospital for worsening CHF with leg swelling and shortness of breath, PND, orthopnea. MEDICATIONS: Include: 1. . 2. Fluoxetine. 3. Glucotrol. 4. Lipitor. 5. Coreg. 6. [place]. 7. Coumadin. ALLERGIES: No known drug allergies. REVIEW OF SYSTEMS: Fourteen point review of systems negative except for mentioned in HPI. PAST MEDICAL HISTORY: Coronary artery disease, COPD, diabetes mellitus, dyslipidemia, hypertension, myocardial infarction, musculoskeletal disorder, sleep apnea, hip pain, uses CPAP, AICD, CABG, stents. Past medical history of diabetes, hypertension, depression. FAMILY HISTORY: Father with cancer. Mother with coronary artery disease, diabetes mellitus in a younger brother. REVIEW OF SYMPTOMS: 14-point review of systems negative except for mentioned in HPI. PHYSICAL EXAM: White male in no acute distress. Cardiovascular: S1, S2. Lungs shows rales at the bases. Hematology: Negative Homans. Hematologic 2+ pedal edema. NEUROLOGIC: Alert and oriented x3. Psych: Fair mood and affect. SKIN: Warm, dry, intact. Temp 97.4, pulse 95 to 96, respiratory 16-20, blood pressure 102-111 over 60s to 80s. EKG shows sinus rhythm. ASSESSMENT: 1. Acute congestive heart failure. 2. Hypertension. 3. Diabetes mellitus. 4. Coronary artery disease. 5. Elevated troponin. Cardiology consult. IV diuresis. Please see further orders. MMODL / IJN: [id number] /
[2018-07-01] MEDS: HYDROcodone/APAP 10-325MG 1 EACH TAB PO PRN ×3 (03:15→18:38)
[2018-07-01 05:50] LABS: Glucose,Whole Blood 160 mg/dL (75-99)
[2018-07-01] MEDS: CARVEDILOL 6.25 MG TAB PO SCH ×2 (06:30→17:46)
[2018-07-01 07:01] LABS: INR 4.9 (<1.2); Prothrombin Time 47.1 sec (9.0-12.0)
[2018-07-01] MEDS: FUROSEMIDE 10 MG/ML 4 ML VIAL IV SCH ×2 (08:43→21:54)
[2018-07-01] MEDS: SPIRONOLACTONE 25 MG TAB PO SCH (08:43)
[2018-07-01] MEDS: LOSARTAN 50 MG TAB PO SCH (08:43)
[2018-07-01] MEDS: ISOSORBIDE MONONITRATE ER 30 MG TAB.ER.24H PO SCH (08:43)
[2018-07-01 11:18] LABS: Glucose,Whole Blood 172 mg/dL (75-99)
--- NOTE | 2018-07-01 12:35 | P.CRDCN ---
History of Present Illness History of present illness: This is Dr. Dow dictating a consult on this patient The patient was interviewed and examined by me IMPRESSION / ASSESSMENT: History of cardio myopathy Symptoms of dizziness weakness or shortness of breath with an abnormal troponin likely non-Q-wave SD History of heart failure PLAN: Repeat ECG again Repeat troponin again. Repeat troponin was 0.187 Records from the office Continue aspirin and atorvastatin Continue carvedilol Lasix IV every 12 Imdur losartan and spironolactone HPI patient presented with dizziness and weakness shortness of breath for the last 4 days. He denied any chest discomfort. He was recently started on warfarin and his INR is greater than 4 First troponin was abnormal at 0.89 his heart rates are increased. He has an AICD in place ROS: No fever chills or rigors, no cough, phlegm or expectoration, no nausea, vomiting or diarrhea, no hematuria, dysuria, no musculoskeletal complaints, no strokes or seizures, no skin lesions. EXAMINATION: Afebrile Blood pressure 113/84 mmHg pulse rate in the 80s Breath sounds are clear no rhonchi no crackles Heart sounds positive murmur REVIEW OF LABS, ECG & MEDICAL DATA Troponin 0.089, 0.187 ProBNP 4300 Sodium 139 potassium 4.2 BUN 17 creatinine 0.77 Hemoglobin 13.1 Past Medical History Past Medical History: Coronary Artery Disease (CAD), COPD, Diabetes Mellitus, Hyperlipidemia, Hypertension, Myocardial Infarction (SD), Musculoskeletal Disor susan, Sleep Apnea/CPAP/BIPAP Additional Past Medical History / Comment(s): CMP; HAS AICD. See Dr Dow's H&P. LOWER BACK, HIP PAIN, R/T HX MANUAL LABOR. USES CPAP. HX SD's 1997, 2004, 2010, 2016 Last Myocardial Infarction Date:: 01/2017 History of Any Multi-Drug Resistant Organisms: None Reported Past Surgical History: AICD, Coronary Bypass/CABG, Heart Catheterization With Stent Additional Past Surgical History / Comment(s): 1 VESSEL CABG 01/2017. STENT X3. Hemorrhoidectomy. AICD, [employer], 10/08/17. Past Anesthesia/Blood Transfusion Reactions: No Reported Reaction Date of Last Stent Placement:: 2016 Type of Cardiac Device: AICD Device Placement Date:: 09/28/17 Past Psychological History: Depression Smoking Status: Former smoker Past Alcohol Use History: None Reported Additional Past Alcohol Use History / Comment(s): Quit Smoking 01/2017, smoked for 40 years, 1-2ppd. Past Drug Use History: Marijuana Additional Drug Use History / Comment(s): OCC USE ONLY - Past Family History Father Family Medical History: Cancer Mother Family Medical History: Coronary Artery Disease (CAD), Diabetes Mellitus Brother(s) Family Medical History: Coronary Artery Disease (CAD), Diabetes Mellitus Medications and Allergies Home Medications Medication Instructions Recorded Confirmed Type Isosorbide Mononitrate ER [Imdur] 30 mg PO DAILY #30 tab.er.24h 02/13/17 06/30/18 Rx Losartan [Cozaar] 50 mg PO DAILY #30 tab 02/13/17 06/30/18 Rx Empagliflozin/Linagliptin 1 tab PO DAILY 08/27/17 06/30/18 History [Glyxambi 25 mg-5 mg Tablet] FLUoxetine HCL 20 mg PO DAILY 08/27/17 06/30/18 History glipiZIDE [Glucotrol] 10 mg PO BID 08/27/17 06/30/18 History Spironolactone [Aldactone] 25 mg PO DAILY #90 tablet 09/29/17 06/30/18 Rx Atorvastatin [Lipitor] 80 mg PO HS 03/12/18 06/30/18 History Carvedilol [Coreg] 6.25 mg PO BID 03/12/18 06/30/18 History Hydrocodone/Acetaminophen [[place] 1 tab PO TID PRN 06/30/18 06/30/18 History 10-325] Warfarin [Coumadin] 2.5 mg PO SUTUTHSA 06/30/18 06/30/18 History Warfarin [Coumadin] 5 mg PO MOWEFR 06/30/18 06/30/18 History Allergies Allergy/AdvReac Type Severity Reaction Status Date / Time No Known Allergies Allergy Verified 06/30/18 11:52 Physical Exam Vitals: Vital Signs Temp Pulse Pulse Pulse Resp BP BP 07/01/18 11:51 97.5 F L 84 18 96/62 07/01/18 07:53 07/01/18 07:45 97.4 F L 95 16 113/84 07/01/18 06:29 99 126/78 07/01/18 04:20 98.6 F 92 20 121/77 04/10/19 23:22 99 06/30/18 23:19 97.8 F 99 18 100/70 06/30/18 20:00 96.7 F L 105 H 105 H 20 113/76 06/30/18 17:19 97.8 F 96 18 100/72 06/30/18 16:00 97.8 F 96 96 18 108/74 100/72 06/30/18 15:30 96 18 111/83 06/30/18 15:01 96 18 116/78 06/30/18 14:30 98 18 106/77 06/30/18 14:00 97 21 107/76 06/30/18 13:30 96 19 101/72 06/30/18 13:00 94 20 111/84 Pulse Ox 07/01/18 11:51 96 07/01/18 07:53 98 07/01/18 07:45 96 07/01/18 06:29 07/01/18 04:20 94 L 06/30/18 23:22 06/30/18 23:19 97 06/30/18 20:00 98 06/30/18 17:19 94 L 06/30/18 16:00 96 06/30/18 15:30 98 06/30/18 15:01 96 06/30/18 14:30 98 06/30/18 14:00 96 06/30/18 13:30 98 06/30/18 13:00 94 L Intake and Output 06/30/18 07/01/18 07/01/18 22:59 06:59 14:59 Other: Voiding Method Urinal Urinal Urinal # Voids 1 2 Weight 90.4 kg Results 06/30/18 12:13 06/30/18 12:13 Cardiac Enzymes 06/30/18 06/30/18 07/01/18 Range/Units 12:13 12:13 09:22 AST 25 (17-59) U/L Troponin I 0.089 H* 0.187 H* (0.000-0.034) ng/mL Coagulation 06/30/18 07/01/18 Range/Units 12:13 06:29 PT 46.5 H 47.1 H (9.0-12.0) sec APTT 34.9 H (22.0-30.0) sec CBC 06/30/18 Range/Units 12:13 WBC 9.1 (3.8-10.6) k/uL RBC 4.80 (4.30-5.90) m/uL Hgb 13.1 D (13.0-17.5) gm/dL Hct 40.7 (39.0-53.0) % Plt Count 314 (150-450) k/uL Comprehensive Metabolic Panel 06/30/18 Range/Units 12:13 Sodium 139 (137-145) mmol/L Potassium 4.2 (3.5-5.1) mmol/L Chloride 106 (98-107) mmol/L Carbon Dioxide 22 (22-30) mmol/L BUN 17 (9-20) mg/dL Creatinine 0.77 (0.66-1.25) mg/dL Glucose 146 H (74-99) mg/dL Calcium 9.0 (8.4-10.2) mg/dL AST 25 (17-59) U/L ALT 39 (21-72) U/L Alkaline Phosphatase 84 (38-126) U/L Total Protein 6.1 L (6.3-8.2) g/dL Albumin 3.6 (3.5-5.0) g/dL Current Medications Generic Name Dose Route Start Last Admin Trade Name Freq PRN Reason Stop Dose Admin Acetaminophen 650 mg 06/30/18 14:30 Tylenol Tab PO Q6HR PRN Mild Pain or Fever > 100.5 Hydrocodone Bitart/Acetaminophen 1 each 06/30/18 14:32 07/01/18 03:15 [place] 10 PO 1 each TID PRN Administration MODERATE Pain Atorvastatin Calcium 80 mg 06/30/18 21:00 06/30/18 20:15 Lipitor PO 80 mg HS DENIS Administration Carvedilol 6.25 mg 06/30/18 17:30 07/01/18 06:30 Coreg PO 6.25 mg BID-W/MEALS DENIS Administration Furosemide 40 mg 06/30/18 21:00 07/01/18 08:43 Lasix IV 40 mg Q12HR DENIS Administration Isosorbide Mononitrate 30 mg 07/01/18 09:00 07/01/18 08:43 Imdur PO 30 mg DAILY DENIS Administration Losartan Potassium 50 mg 07/01/18 09:00 07/01/18 08:43 Cozaar PO 50 mg DAILY DENIS Administration Naloxone HCl 0.2 mg 06/30/18 14:30 Narcan IV Q2M PRN Opioid Reversal Spironolactone 25 mg 07/01/18 09:00 07/01/18 08:43 Aldactone PO 25 mg DAILY DENIS Administration Intake and Output 06/30/18 07/01/18 07/01/18 22:59 06:59 14:59 Other: Voiding Method Urinal Urinal Urinal # Voids 1 2 Weight 90.4 kg 06/30/18 12:13 06/30/18 12:13
[2018-07-01 16:30] LABS: Glucose,Whole Blood 184 mg/dL (75-99)
[2018-07-01] MEDS: INSULIN ASPART (NovoLOG) 100 UNIT/ML VIAL SQ SCH ×2 (17:46→21:54)
--- NOTE | 2018-07-01 18:19 | PN ---
PROGRESS NOTE DATE OF SERVICE: July 01, 2018. He continues to have shortness of breath. PHYSICAL EXAMINATION: His blood pressure is 96/62, respiratory rate of 18, pulse rate 84, temperature 97.5. HEENT: Unremarkable. Chest reveals decreased breath sounds. Cardiovascular system is S1, S2. ABDOMEN: Soft. There is 2+ pedal edema. White count is 9.1, hemoglobin of 13.1, PT/INR of 4.8, troponin of 0.089. IMPRESSION: 1. Congestive heart failure. 2. Acute myocardial infarction. 3. Cardiomyopathy. 4. Coagulopathy. Optimize his anticoagulation. His fluid status preload and afterload. Increase his activity level. I appreciate cardiology's input and recommendations. T GABRIELA / NIKOLAI: [id number] /
--- NOTE | 2018-07-01 18:32 | ECHOF ---
Referral Reason:Elevated TROP MEASUREMENTS -------- HEIGHT: 182.9 cm WEIGHT: 90.3 kg BP: RVIDd: 2.3 cm (< 3.3) IVSd: 1.4 cm (0.6 - 1.1) LVIDd: 4.9 cm (3.9 - 5.3) LVPWd: 1.5 cm (0.6 - 1.1) IVSs: 1.6 cm LVIDs: 4.0 cm LVPWs: 1.7 cm LAESV Index (A-L): 32.45 ml/m Ao Diam: 3.1 cm (2.0 - 3.7) AV Cusp: 1.7 cm (1.5 - 2.6) LA Diam: 3.9 cm (2.7 - 3.8) MV EXCURSION: 11.453 mm (> 18.000) MV EF SLOPE: 95 mm/s (70 - 150) EPSS: 1.9 cm MV E Augustin: 1.45 m/s MV DecT: 127 ms MV A Augustin: 0.33 m/s MV E/A Ratio: 4.33 RAP: 5.00 mmHg RVSP: 45.48 mmHg FINDINGS -------- AICD There is a severe generalized hypokinesia with akinesis of the apical segments. Mid septal an d inferobasal segments seem to be moving better than the rest of the jones. This was a technically adequate study. The left ventricular size is normal. There is moderate concentric left ventricular hypertrophy. T here is severe global hypokinesis of LV . Overall left ventricular systolic function is severely im paired with, an EF between 20 - 25 %. The right ventricle is normal in size. The left atrial size is normal. The right atrial size is normal. Lumason used Aortic valve is trileaflet and is moderately thickened. The mitral valve leaflets are mildly thickened. Mild mitral annular calcification present. Modera te mitral regurgitation is present. Moderate tricuspid regurgitation present. There is mild pulmonary hypertension. The right ventric ular systolic pressure, as measured by Doppler, is 45.48mmHg. There is no pulmonic regurgitation present. The aortic root size is normal. IVC Not well visulized. There is no pericardial effusion. CONCLUSIONS -------- 1. AICD 2. There is a severe generalized hypokinesia with akinesis of the apical segments. Mid septal and in ferobasal segments seem to be moving better than the rest of the jones. 3. This was a technically adequate study. 4. The left ventricular size is normal. 5. There is moderate concentric left ventricular hypertrophy. 6. There is severe global hypokinesis of LV . 7. Overall left ventricular systolic function is severely impaired with, an EF between 20 - 25 %. 8. The right ventricle is normal in size. 9. The left atrial size is normal. 10. The right atrial size is normal. 11. Lumason used 12. Aortic valve is trileaflet and is moderately thickened. 13. The mitral valve leaflets are mildly thickened. 14. Mild mitral annular calcification present. 15. Moderate mitral regurgitation is present. 16. Moderate tricuspid regurgitation present. 17. There is mild pulmonary hypertension. 18. The right ventricular systolic pressure, as measured by Doppler, is 45.48mmHg. 19. There is no pulmonic regurgitation present. 20. The aortic root size is normal. 21. IVC Not well visulized. 22. There is no pericardial effusion. [employer] LOSS PREVENTION MANAGER: Mariann Ngo RDCS
[2018-07-01 20:35] LABS: Glucose,Whole Blood 209 mg/dL (75-99)
[2018-07-01] MEDS: ATORVASTATIN 80 MG TAB PO SCH (21:54)
[2018-07-02] MEDS: HYDROcodone/APAP 10-325MG 1 EACH TAB PO PRN ×3 (04:25→21:51)
[2018-07-02 06:29] LABS: Glucose,Whole Blood 170 mg/dL (75-99)
[2018-07-02] MEDS: CARVEDILOL 6.25 MG TAB PO SCH ×2 (06:51→17:17)
[2018-07-02] MEDS: INSULIN ASPART (NovoLOG) 100 UNIT/ML VIAL SQ SCH ×4 (06:51→20:54)
[2018-07-02 08:01] LABS: Anion Gap 10 mmol/L; Blood Urea Nitrogen 28 mg/dL (9-20); Calcium 8.9 mg/dL (8.4-10.2); Carbon Dioxide 20 mmol/L (22-30); Chloride 106 mmol/L (98-107); Glucose 174 mg/dL (74-99); Potassium 3.7 mmol/L (3.5-5.1); Sodium 136 mmol/L (137-145)
[2018-07-02] MEDS: ISOSORBIDE MONONITRATE ER 30 MG TAB.ER.24H PO SCH (08:01)
[2018-07-02] MEDS: LOSARTAN 50 MG TAB PO SCH (08:01)
[2018-07-02] MEDS: FUROSEMIDE 10 MG/ML 4 ML VIAL IV SCH ×2 (08:01→20:55)
[2018-07-02] MEDS: SPIRONOLACTONE 25 MG TAB PO SCH (08:01)
[2018-07-02 08:07] LABS: INR 2.6 (<1.2); Prothrombin Time 25.4 sec (9.0-12.0)
--- NOTE | 2018-07-02 11:29 | P.PN ---
Subjective Patient is resting comfortably in the chair. No chest discomfort dizziness lightheadedness No shortness of breath either at rest or with exertion Blood pressure 114/73 mmHg and 111 066. His mercury pulse rate in the 80s afebrile Breath sounds are clear no rhonchi no crackles Heart sounds. Normal no murmurs Impression Non-Q wave myocardial infarction Suggest Continue current medications Today his INR is 2.6 Coumadin is on hold Heparinize once INR is 20 below Daily PT/INR Coronary angiography once INR is below 2.0 Continue current medications Objective - Vital Signs Vital signs: Vital Signs Temp 97.3 F L 07/02/18 08:00 Pulse 88 07/02/18 08:00 Resp 19 07/02/18 08:00 BP 107/69 07/02/18 08:00 Pulse Ox 99 07/02/18 08:00 Intake & Output 07/01/18 07/02/18 07/02/18 18:59 06:59 18:59 Intake Total 720 600 610 Output Total 700 Balance 720 -100 610 Weight 91.7 kg 90.7 kg Intake: IV 10 0.9 10 Oral 720 600 600 Output: Urine 700 Other: Voiding Method Urinal Urinal Urinal # Voids 4 0 - Labs CBC & Chem 7: 06/30/18 12:13 07/02/18 06:00 Labs: Abnormal Lab Results - Last 24 Hours (Table) 07/01/18 07/01/18 07/01/18 Range/Units 15:34 16:28 20:32 PT (9.0-12.0) sec INR (<1.2) Sodium (137-145) mmol/L Carbon Dioxide (22-30) mmol/L BUN (9-20) mg/dL Glucose (74-99) mg/dL POC Glucose (mg/dL) 184 H 209 H (75-99) mg/dL Troponin I 0.272 H* (0.000-0.034) ng/mL 07/02/18 07/02/18 07/02/18 Range/Units 06:00 06:00 06:20 PT 25.4 H (9.0-12.0) sec INR 2.6 H (<1.2) Sodium 136 L (137-145) mmol/L Carbon Dioxide 20 L (22-30) mmol/L BUN 28 H (9-20) mg/dL Glucose 174 H (74-99) mg/dL POC Glucose (mg/dL) 170 H (75-99) mg/dL Troponin I (0.000-0.034) ng/mL
[2018-07-02 11:48] LABS: Glucose,Whole Blood 191 mg/dL (75-99)
[2018-07-02 15:51] LABS: Hemoglobin A1C 8.6 % (4.0-6.0)
[2018-07-02 17:03] LABS: Glucose,Whole Blood 170 mg/dL (75-99)
--- NOTE | 2018-07-02 19:50 | PN ---
PROGRESS NOTE DATE OF VISIT: 07/02/2018 He was seen on July 02, 2018. He continues to have shortness of breath, but is less short of breath. PHYSICAL EXAMINATION: Respiratory rate is 16, pulse rate 83, temperature 97.8, blood pressure 103/69, O2 saturation on room air is 96%. HEENT: Unremarkable. Chest reveals decreased breath sounds at the bases with scattered crackles. Cardiovascular system with an S1, S2. Abdomen is soft. There is 1+ edema. Sodium is 136, potassium 3.7, chloride 106, bicarb 20, BUN 28, creatinine 0.75. PT/INR of 2.6. IMPRESSION: At this time: 1. Acute myocardial infarction. 2. Cardiomyopathy. 3. Congestive heart failure. Optimize anticoagulation. Increase his activity level. Keep him in negative fluid balance. Continue medical management for his acute ME. GABRIELA / NIKOLAI: [id number] /
[2018-07-02 20:35] LABS: Glucose,Whole Blood 174 mg/dL (75-99)
[2018-07-02] MEDS: ATORVASTATIN 80 MG TAB PO SCH (20:54)
[2018-07-03] MEDS: HYDROcodone/APAP 10-325MG 1 EACH TAB PO PRN ×3 (05:58→21:36)
[2018-07-03 06:24] LABS: Glucose,Whole Blood 154 mg/dL (75-99)
[2018-07-03] MEDS: CARVEDILOL 6.25 MG TAB PO SCH ×2 (06:53→17:29)
[2018-07-03 06:54] LABS: Basophils # (A) 0.1 k/uL (0-0.2); Basophils % (A) 1 %; Eosinophils # (A) 0.1 k/uL (0-0.7); Eosinophils % (A) 2 %; HCT 39.2 % (39.0-53.0); Hypochromasia Moderate; Lymphocytes # (A) 1.4 k/uL (1.0-4.8); Lymphocytes % (A) 21 %; MCH 26.6 pg (25.0-35.0); MCHC 30.7 g/dL (31.0-37.0); MCV 86.7 fL (80.0-100.0); Mean Platelet Volume 6.7; Monocytes # (A) 0.4 k/uL (0-1.0); Monocytes % (A) 7 %; Neutrophils # (A) 4.6 k/uL (1.3-7.7); Neutrophils % (A) 68 %; Platelet Count 254 k/uL (150-450); RBC 4.52 m/uL (4.30-5.90); RDW 14.4 % (11.5-15.5); WBC 6.7 k/uL (3.8-10.6)
[2018-07-03] MEDS: INSULIN ASPART (NovoLOG) 100 UNIT/ML VIAL SQ SCH ×4 (06:54→21:35)
[2018-07-03 07:02] LABS: INR 1.7 (<1.2)
[2018-07-03 07:05] LABS: Anion Gap 12 mmol/L; Blood Urea Nitrogen 30 mg/dL (9-20); Calcium 9.2 mg/dL (8.4-10.2); Carbon Dioxide 22 mmol/L (22-30); Chloride 103 mmol/L (98-107); Glucose 168 mg/dL (74-99); Potassium 4.1 mmol/L (3.5-5.1); Sodium 137 mmol/L (137-145)
[2018-07-03] MEDS ORDERED: SODIUM CHLORIDE 0.9% 1,000 ML in EMPTY BAG 1 BAG IV ONE (08:46)
[2018-07-03] MEDS: HEPARIN SOD,PORK IN 0.45% NACL 25,000 UNIT in 0.45% NACL 1 250ML.BAG IV SCH (10:13)
[2018-07-03] MEDS: FUROSEMIDE 10 MG/ML 4 ML VIAL IV SCH (10:18)
[2018-07-03] MEDS: ISOSORBIDE MONONITRATE ER 30 MG TAB.ER.24H PO SCH (10:18)
[2018-07-03] MEDS: LOSARTAN 50 MG TAB PO SCH (10:18)
[2018-07-03] MEDS: SPIRONOLACTONE 25 MG TAB PO SCH (10:18)
[2018-07-03 11:32] LABS: Glucose,Whole Blood 268 mg/dL (75-99)
--- NOTE | 2018-07-03 11:32 | P.PN ---
Subjective This is a pleasant 58-year-old male past medical history significant for coronary artery disease status post bypass grafting, ischemic cardiomyopathy status post AICD placement, dyslipidemia and hypertension. He follows in the office with Dr. José. He is currently being treated for non-Q wave myocardial infarction. He is seen and examined sitting up in the chair with multiple family members at the bedside. He's had no further symptoms of shortness of breath, weakness or dizziness since arriving at the hospital. He states overall he is feeling very comfortable. He denies ever having had any symptoms of chest discomfort. His Coumadin has been on hold for the possibility of catheterization today however INR is 1.7. Blood pressure 98/67 heart rate 88 afebrile. Laboratory data reviewed, creatinine 0.76, sodium 4.1, INR 1.7 and hemoglobin 12. Currently maintained on atorvastatin 80 mg daily, carvedilol 6.25 mg twice a day, Lasix 40 mg IV twice a day, Imdur 30 mg daily, losartan 50 mg daily and Aldactone 25 mg daily. Echocardiogram obtained revealed severely impaired left ventricular systolic function with ejection fraction 20-25% and mild pulmonary hypertension with an RVSP of 45 mmHg. GENERAL: Well-appearing, well-nourished and in no acute distress. NECK: Supple without JVD or thyromegaly. LUNGS: Breath sounds clear to auscultation bilaterally. Respiration equal and unlabored. No wheezes, rales or rhonchi. Diminished bilaterally. HEART: Regular rate and rhythm with systolic ejection murmur at the base, no rubs or gallops. S1 and S2 heard. EXTREMITIES: Normal range of motion, no edema. No clubbing or cyanosis. Peripheral pulses intact. ASSESSMENT Non-Q wave myocardial infarction Acute on chronic systolic heart failure, improving Hypertension Dyslipidemia Ischemic cardiomyopathy status post AICD placement PLAN Coumadin has been held and INR is 1.7. Initiate the patient on a heparin infusion for thromboembolic protection. In the absence of symptoms of angina we will continue to optimize the patient medically and performed cardiac catheterization on Thursday. This has been explained in great detail to the patient as well as his family members. Transition Lasix to oral 40 mg daily. Repeat chest x-ray in the morning. Nurse Practitioner note has been reviewed, I agree with a documented findings and plan of care. Patient was seen and examined. Objective - Vital Signs Vital signs: Vital Signs Temp 98.1 F 04/13/19 03:22 Pulse 80 07/03/18 08:47 Resp 18 07/03/18 08:47 BP 98/67 07/03/18 08:47 Pulse Ox 90 L 07/03/18 08:47 Intake & Output 07/02/18 07/03/18 07/03/18 18:59 06:59 18:59 Intake Total 970 400 Output Total 675 1700 800 Balance 295 -1300 -800 Weight 91.4 kg Intake: IV 10 0.9 10 Oral 960 400 Output: Urine 675 1700 800 Other: Voiding Method Urinal Urinal # Voids 0 1 - Labs CBC & Chem 7: 07/03/18 06:28 07/03/18 06:28 Labs: Abnormal Lab Results - Last 24 Hours (Table) 07/02/18 07/02/18 07/02/18 Range/Units 06:00 11:38 17:01 Hgb (13.0-17.5) gm/dL MCHC (31.0-37.0) g/dL PT (9.0-12.0) sec INR (<1.2) BUN (9-20) mg/dL Glucose (74-99) mg/dL POC Glucose (mg/dL) 191 H 170 H (75-99) mg/dL Hemoglobin A1c 8.6 H (4.0-6.0) % 07/02/18 07/03/18 07/03/18 Range/Units 20:34 06:10 06:28 Hgb (13.0-17.5) gm/dL MCHC (31.0-37.0) g/dL PT 17.0 H (9.0-12.0) sec INR 1.7 H (<1.2) BUN (9-20) mg/dL Glucose (74-99) mg/dL POC Glucose (mg/dL) 174 H 154 H (75-99) mg/dL Hemoglobin A1c (4.0-6.0) % 07/03/18 07/03/18 Range/Units 06:28 06:28 Hgb 12.0 L (13.0-17.5) gm/dL MCHC 30.7 L (31.0-37.0) g/dL PT (9.0-12.0) sec INR (<1.2) BUN 30 H (9-20) mg/dL Glucose 168 H (74-99) mg/dL POC Glucose (mg/dL) (75-99) mg/dL Hemoglobin A1c (4.0-6.0) %
--- NOTE | 2018-07-03 15:05 | PN ---
PROGRESS NOTE DATE OF SERVICE: 07/03/2018 This patient has been hemodynamically stable. He has no chest pain. On physical examination, his blood pressure is 124/79, respiratory rate of 18, pulse rate 92, temperature 97.5, O2 saturation on room 96%. HEENT is unremarkable. Chest reveals decreased breath sounds. No wheeze. Cardiovascular system is in S1, S2. Abdomen is soft. There is trace edema. White count is 6.7, hemoglobin 12. PT/INR 1.7. Sodium 137, potassium 4.1, chloride 103, bicarb 22, BUN 30, creatinine 0.76. IMPRESSION AT THIS TIME: 1. Acute myocardial infarction, for which he is being set up for cardiac cath day after tomorrow. 2. Coagulopathy. His PT/INR is corrected and now he is on heparin in anticipation of his cardiac cath. 3. Cardiomyopathy. 4. Renal insufficiency, for which his fluid status has been optimized. MMODL / IJN: [id number] /
[2018-07-03] MEDS: HEPARIN SODIUM,PORCINE 5,000 UNIT/ML 1 ML VIAL IV PRN ×2 (16:08→23:27)
[2018-07-03] MEDS: FUROSEMIDE 40 MG TAB PO SCH (16:09)
[2018-07-03 16:18] LABS: Glucose,Whole Blood 191 mg/dL (75-99)
[2018-07-03] MEDS: ATORVASTATIN 80 MG TAB PO SCH (19:59)
[2018-07-03 20:56] LABS: Glucose,Whole Blood 251 mg/dL (75-99)
[2018-07-04] MEDS: HEPARIN SOD,PORK IN 0.45% NACL 25,000 UNIT in 0.45% NACL 1 250ML.BAG IV SCH (05:44)
[2018-07-04] MEDS: HYDROcodone/APAP 10-325MG 1 EACH TAB PO PRN ×3 (05:52→21:41)
[2018-07-04] MEDS: CARVEDILOL 6.25 MG TAB PO SCH ×2 (06:23→17:12)
[2018-07-04] MEDS: INSULIN ASPART (NovoLOG) 100 UNIT/ML VIAL SQ SCH ×4 (06:23→21:42)
[2018-07-04 06:25] LABS: Glucose,Whole Blood 187 mg/dL (75-99)
[2018-07-04 06:50] LABS: Anion Gap 9 mmol/L; Blood Urea Nitrogen 30 mg/dL (9-20); Calcium 8.9 mg/dL (8.4-10.2); Carbon Dioxide 23 mmol/L (22-30); Chloride 104 mmol/L (98-107); Glucose 176 mg/dL (74-99); Sodium 136 mmol/L (137-145)
[2018-07-04 07:02] LABS: Basophils # (A) 0.1 k/uL (0-0.2); Basophils % (A) 1 %; Eosinophils # (A) 0.2 k/uL (0-0.7); Eosinophils % (A) 2 %; HCT 38.2 % (39.0-53.0); HGB 12.2 gm/dL (13.0-17.5); Hypochromasia Moderate; Lymphocytes # (A) 1.9 k/uL (1.0-4.8); Lymphocytes % (A) 24 %; MCH 27.4 pg (25.0-35.0); MCV 85.6 fL (80.0-100.0); Mean Platelet Volume 7.3; Monocytes # (A) 0.5 k/uL (0-1.0); Monocytes % (A) 6 %; Neutrophils # (A) 4.9 k/uL (1.3-7.7); Neutrophils % (A) 65 %; Platelet Count 259 k/uL (150-450); Poikilocytosis Slight; RBC 4.46 m/uL (4.30-5.90); WBC 7.6 k/uL (3.8-10.6)
--- NOTE | 2018-07-04 07:15 | XR ---
EXAMINATION TYPE: XR chest 2V DATE OF EXAM: 07/04/2018 HISTORY: Difficulty breathing. REFERENCE: Previous study dated 06/30/2018. FINDINGS: There is unipolar pacemaker place on the left. There has been a midline sternotomy. The lungs are overinflated. The heart is enlarged. There is right basilar airspace disease. Pleural s paces appear clear. IMPRESSION: 1. COPD. 2. CARDIOMEGALY. 3. CONTINUING RIGHT BASILAR AIRSPACE DISEASE.
[2018-07-04] MEDS: SPIRONOLACTONE 25 MG TAB PO SCH (08:43)
[2018-07-04] MEDS: ISOSORBIDE MONONITRATE ER 30 MG TAB.ER.24H PO SCH (08:43)
[2018-07-04] MEDS: FUROSEMIDE 40 MG TAB PO SCH ×2 (08:43→15:17)
[2018-07-04] MEDS: LOSARTAN 50 MG TAB PO SCH (10:09)
--- NOTE | 2018-07-04 10:10 | P.PN ---
Subjective This is a pleasant 58-year-old male past medical history significant for coronary artery disease status post bypass grafting, ischemic cardiomyopathy status post AICD placement, dyslipidemia and hypertension. He follows in the office with Dr. José. He is seen and examined sitting up in the chair eating breakfast in no acute distress. He denies any symptoms of chest discomfort, shortness of breath, dizziness or palpitations. He is maintained on a heparin infusion and is planned for cardiac catheterization tomorrow morning with Dr. José. Blood pressure 101/71 heart rate 84 afebrile maintaining oxygen saturation on room air. Laboratory data reviewed, WBC 7.6, hemoglobin 12.2, platelets 259, sodium 136, potassium 4.0, creatinine 0.8. Chest x-ray reveals COPD, cardiomegaly and right basilar airspace disease. No evidence of pleural effusion. GENERAL: Well-appearing, well-nourished and in no acute distress. NECK: Supple without JVD or thyromegaly. LUNGS: Breath sounds clear to auscultation bilaterally. Respiration equal and unlabored. No wheezes, rales or rhonchi. Diminished bilaterally. HEART: Regular rate and rhythm with systolic ejection murmur at the base, no rubs or gallops. S1 and S2 heard. EXTREMITIES: Normal range of motion, no edema. No clubbing or cyanosis. Peripheral pulses intact. ASSESSMENT Non-Q wave myocardial infarction Acute on chronic systolic heart failure, improving Hypertension Dyslipidemia Ischemic cardiomyopathy status post AICD placement PLAN He will be nothing by mouth after midnight tonight for cardiac catheterization tomorrow morning. Check INR in the morning prior to procedure. Further recommendations to follow. Nurse Practitioner note has been reviewed, I agree with a documented findings and plan of care. Patient was seen and examined. Objective - Vital Signs Vital signs: Vital Signs Temp 97.7 F 07/04/18 08:46 Pulse 84 07/04/18 08:46 Resp 18 07/04/18 08:46 BP 101/71 07/04/18 08:46 Pulse Ox 99 07/04/18 08:46 Intake & Output 07/03/18 07/04/18 07/04/18 18:59 06:59 18:59 Intake Total 6243.407 9054.942 480 Output Total 1400 Balance -718.302 6656.942 480 Weight 93.6 kg Intake: Intake, IV Titration 59.114 1190.942 Amount Heparin Sod,Pork in 0.45% 59.114 189.942 NaCl 25,000 unit In 0.45 % NaCl 1 250ml.bag @ 10.9 UNITS/KG/HR 9.963 mls/hr IV .Q24H [facility] Rx#: [id number] Sodium Chloride 0.9% 1, 1001 000 ml In Empty Bag 1 bag @ 1 ML/KG/HR 91.4 mls/hr IV .[id number] ONE Rx#: [id number] Oral 1078 450 480 Output: Urine 1400 Other: Voiding Method Urinal # Voids 1 3 1 # Bowel Movements 1 - Labs CBC & Chem 7: 07/04/18 06:07 07/04/18 06:07 Labs: Abnormal Lab Results - Last 24 Hours (Table) 07/03/18 07/03/18 07/03/18 Range/Units 11:30 16:16 20:38 Hgb (13.0-17.5) gm/dL Hct (39.0-53.0) % APTT (22.0-30.0) sec Sodium (137-145) mmol/L BUN (9-20) mg/dL Glucose (74-99) mg/dL POC Glucose (mg/dL) 268 H 191 H 251 H (75-99) mg/dL 07/03/18 07/04/18 07/04/18 Range/Units 22:37 06:07 06:07 Hgb 12.2 L (13.0-17.5) gm/dL Hct 38.2 L (39.0-53.0) % APTT 39.1 H 50.8 H (22.0-30.0) sec Sodium (137-145) mmol/L BUN (9-20) mg/dL Glucose (74-99) mg/dL POC Glucose (mg/dL) (75-99) mg/dL 07/04/18 07/04/18 Range/Units 06:07 06:22 Hgb (13.0-17.5) gm/dL Hct (39.0-53.0) % APTT (22.0-30.0) sec Sodium 136 L (137-145) mmol/L BUN 30 H (9-20) mg/dL Glucose 176 H (74-99) mg/dL POC Glucose (mg/dL) 187 H (75-99) mg/dL
[2018-07-04 11:31] LABS: Glucose,Whole Blood 275 mg/dL (75-99)
[2018-07-04 16:38] LABS: Glucose,Whole Blood 178 mg/dL (75-99)
[2018-07-04 21:05] LABS: Glucose,Whole Blood 172 mg/dL (75-99)
[2018-07-04] MEDS: ATORVASTATIN 80 MG TAB PO SCH (21:41)
--- NOTE | 2018-07-04 22:25 | PN ---
PROGRESS NOTE DATE OF SERVICE: 07/04/2018 He has no chest pain today. He is awaiting cardiac cath that is scheduled for tomorrow. On physical examination, blood pressure is 110/77, respiratory rate of 18, pulse rate 91, temperature 97, O2 saturation on room air is 98%. HEENT is unremarkable. Chest reveals decreased breath sounds. Cardiovascular system reveals an S1, S2. Abdomen is soft. There is no edema. Sodium is 136, potassium 4, chloride 104, bicarb 23, BUN 30, creatinine of 0.8. IMPRESSION: 1. Acute myocardial infarction for which he is to undergo cardiac cath tomorrow. 2. Ischemic cardiomyopathy. 3. Coagulopathy for which his PT/INR has been corrected, but he is on heparin in anticipation of his cardiac cath and due to his acute myocardial infarction. 4. Renal insufficiency for which his fluid status is being optimized. His last BUN was 30 with a creatinine of 0.8. 5. Diabetes mellitus for which he is on insulin. His prognosis is guarded. MMODL / IJN: [id number] /
[2018-07-05 05:45] LABS: Glucose,Whole Blood 134 mg/dL (75-99)
[2018-07-05] MEDS: HYDROcodone/APAP 10-325MG 1 EACH TAB PO PRN ×2 (05:48→18:00)
[2018-07-05 06:49] LABS: Basophils # (A) 0.1 k/uL (0-0.2); Basophils % (A) 1 %; Eosinophils # (A) 0.1 k/uL (0-0.7); Eosinophils % (A) 2 %; HCT 39.4 % (39.0-53.0); HGB 11.9 gm/dL (13.0-17.5); Hypochromasia Marked; Lymphocytes # (A) 1.6 k/uL (1.0-4.8); Lymphocytes % (A) 24 %; MCHC 30.3 g/dL (31.0-37.0); MCV 85.9 fL (80.0-100.0); Mean Platelet Volume 6.8; Monocytes # (A) 0.4 k/uL (0-1.0); Monocytes % (A) 6 %; Neutrophils # (A) 4.5 k/uL (1.3-7.7); Neutrophils % (A) 66 %; Platelet Count 249 k/uL (150-450); Poikilocytosis Slight; RBC 4.59 m/uL (4.30-5.90); RDW 14.8 % (11.5-15.5); WBC 6.9 k/uL (3.8-10.6)
[2018-07-05] MEDS: CARVEDILOL 6.25 MG TAB PO SCH ×2 (06:55→17:36)
[2018-07-05 06:56] LABS: INR 1.3 (<1.2); Partial Thromboplastin Time 37.6 sec (22.0-30.0); Prothrombin Time 13.4 sec (9.0-12.0)
[2018-07-05] MEDS: INSULIN ASPART (NovoLOG) 100 UNIT/ML VIAL SQ SCH ×4 (06:57→21:09)
[2018-07-05] MEDS ORDERED: SODIUM CHLORIDE 0.9% 1,000 ML IV ONE (08:27)
[2018-07-05] MEDS ORDERED: LIDOCAINE 1% INJ 10MG/ML (20 ML MDV) ONE (08:31)
[2018-07-05] MEDS ORDERED: ASPIRIN 325 MG TAB PO ONE (08:31)
[2018-07-05] MEDS ORDERED: MIDAZOLAM 2 MG/2 ML VIAL IVP ONE (08:49)
[2018-07-05] MEDS ORDERED: LIDOCAINE 1% INJ 10MG/ML (20 ML MDV) SQ ONE (08:52)
--- NOTE | 2018-07-05 09:31 | PN ---
PROGRESS NOTE He was seen on 07/05/2018 He has been hemodynamically stable and has no chest pain. He will be going on for cardiac cath today. On physical examination, his blood pressure is 109/68, respiratory rate 18, pulse rate 83, temperature 96.1, O2 SAT on room air is 98%. HEENT is unremarkable. Chest revealed decreased breath sounds. No wheeze. Cardiovascular system reveals an S1, S2. Abdomen is soft. There is no edema. White count of 6.9, hemoglobin of 11.9, PT, INR of 1.3, PTT 37.6. IMPRESSION: 1. Acute myocardial infarction for which he is to undergo cardiac cath today. 2. Cardiomyopathy for which he had been on Coumadin and had a coagulopathy which has been corrected. He remains on heparin until his cardiac cath is to be done. 3. Diabetes mellitus for which he is on insulin. 4. Prognosis is guarded. We shall make further changes depending on what was found on the cardiac cath. MMODL / IJN: [id number] /
[2018-07-05] MEDS ORDERED: BIVALIRUDIN BOLUS 250 MG/50 ML IV ONE (09:39)
[2018-07-05] MEDS ORDERED: IOPAMIDOL-370 100ML BTL INJ ONE ×2 (09:41→10:12)
[2018-07-05] MEDS ORDERED: BIVALIRUDIN 250 MG in SODIUM CHLORIDE 0.9% 50 ML IV ONE ×4 (09:41)
[2018-07-05] MEDS ORDERED: TICAGRELOR 90 MG TAB PO ONE (09:46)
[2018-07-05] MEDS ORDERED: MAG HYDROX/AL HYDROX/SIMETH 30 ML CUP PO PRN (10:04)
[2018-07-05] MEDS ORDERED: ATROPINE SULFATE 0.1 MG/ML 10ML SYRINGE IV PRN (10:04)
[2018-07-05] MEDS ORDERED: RX INFO: IV CONTRAST WAS GIVEN 1 EACH MISC MISCELLANE PRN (10:04)
[2018-07-05] MEDS ORDERED: SODIUM CHLORIDE 0.9% 500 ML 500 ML IV ONE (10:13)
[2018-07-05] MEDS: SODIUM CHLORIDE 0.9% 1,000 ML IV SCH (10:43)
[2018-07-05] MEDS: HEPARIN SOD,PORK IN 0.45% NACL 25,000 UNIT in 0.45% NACL 1 250ML.BAG IV SCH ×2 (10:43→14:48)
--- NOTE | 2018-07-05 11:07 | CC ---
CARDIAC CATHETERIZATION REPORT INDICATION: Non ST-segment elevation MD in a patient with known coronary artery disease, status post prior bypass with GODINEZ to LAD and prior multivessel angioplasty. PROCEDURE NOTE: After obtaining informed consent, left heart catheterization, coronary angiogram are performed via the right femoral artery using standard Bright catheters. The patient has peripheral vascular disease and we had to use a Glidewire to navigate the catheters across the right iliac vessels and we exchanged the catheters over the Glidewire. Patient tolerated the procedure well without any obvious immediate complications. FINDINGS: 1. HEMODYNAMICS: Left ventricular end-diastolic pressure is 30 mm. There is no significant gradient across the aortic valve. 2. LEFT VENTRICULOGRAM: Left ventriculogram is not performed. 3. ANGIOGRAPHIC DATA: LEFT MAIN CORONARY ARTERY: Left main coronary artery appears calcified but is free of significant stenosis. There is a mild to moderate atherosclerotic plaque in the ostial portion, divides into left anterior descending coronary artery and circumflex coronary artery. LAD shows an 80% stenosis in the proximal part and appears totally occluded in its mid portion. Circumflex coronary artery is also a heavily calcified vessel. Mid circumflex coronary was stented before and the stent appears patent. The ostial portion of the circumflex shows a 70% to 80% stenosis. The lesion is quite eccentric. Right coronary artery is diffusely diseased and full and chronically occluded. The GODINEZ to LAD appears patent. Proximal and distal anastomotic sites are free of significant disease and the koi LAD appears free of disease. CONCLUSION: 1. Severe three-vessel coronary artery disease with patent GODINEZ to LAD. 2. A 70% to 80% ostial stenosis in the circumflex coronary artery. PLAN: I reviewed angiographic data with the intervention who performed his prior angioplasties. He will attempt angioplasty of the koi circumflex coronary artery. Patient understands that it is high risk angioplasty given the heavily calcified vessels. MMODL / IJN: [id number] /
[2018-07-05 11:34] LABS: Glucose,Whole Blood 197 mg/dL (75-99)
[2018-07-05] MEDS: LOSARTAN 50 MG TAB PO SCH (11:51)
[2018-07-05] MEDS: ISOSORBIDE MONONITRATE ER 30 MG TAB.ER.24H PO SCH (11:52)
[2018-07-05] MEDS ORDERED: FUROSEMIDE 10 MG/ML 4 ML VIAL ONE (12:06)
[2018-07-05] MEDS: NITROGLYCERIN SL TABS 0.4 MG TAB SUBLINGUAL PRN ×5 (12:09→13:38)
[2018-07-05] MEDS ORDERED: MORPHINE SULFATE 2 MG/ML SYRINGE IVP STA ×2 (12:21→13:45)
[2018-07-05] MEDS ORDERED: MORPHINE SULFATE 4 MG/ML SYRINGE ONE (12:24)
[2018-07-05] MEDS: SPIRONOLACTONE 25 MG TAB PO SCH (12:28)
[2018-07-05] MEDS: FUROSEMIDE 40 MG TAB PO SCH (12:28)
[2018-07-05] MEDS ORDERED: NITROGLYCERIN-D5W PMX 50 MG in DEXTROSE/WATER 1 250ML.BAG IV SCH (12:30)
--- NOTE | 2018-07-05 13:06 | XR ---
EXAMINATION TYPE: XR chest 1V portable DATE OF EXAM: 07/05/2018 COMPARISON: 07/04/2018 HISTORY: Shortness of breath TECHNIQUE: Single frontal view of the chest is obtained. FINDINGS: Cardiomegaly and diffuse interstitial pattern seen. Cardiac device seen and there is posto perative changes. Diffuse osteopenia. No pneumothorax or pleural effusion. Hyperinflation suggests CO PD. IMPRESSION: 1. Cardiomegaly with COPD correlate for mild interstitial venous congestion.
[2018-07-05 13:10] LABS: Glucose,Whole Blood 252 mg/dL (75-99)
[2018-07-05 13:39] LABS: ABG Base Excess -4.8 mmol/L; ABG HCO3 21 mmol/L (21-25); ABG PCO2 36 mmHg (35-45); ABG PH 7.37 (7.35-7.45); ABG PO2 195 mmHg (83-108); ABG TCO2 22 mmol/L (19-24)
[2018-07-05] MEDS ORDERED: HEPARIN SODIUM,PORCINE 5,000 UNIT/ML 1 ML VIAL IV PRN (13:43)
[2018-07-05] MEDS ORDERED: HEPARIN SOD,PORK IN 0.45% NACL 25,000 UNIT in 0.45% NACL 1 250ML.BAG IV SCH (13:45)
[2018-07-05] MEDS ORDERED: FUROSEMIDE 10 MG/ML 4 ML VIAL IV STA (13:46)
[2018-07-05 14:23] LABS: Basophils % (A) 0 %; Eosinophils % (A) 0 %; HCT 38.8 % (39.0-53.0); HGB 12.4 gm/dL (13.0-17.5); Hypochromasia Moderate; Lymphocytes # (A) 0.5 k/uL (1.0-4.8); Lymphocytes % (A) 5 %; MCH 27.2 pg (25.0-35.0); MCHC 31.9 g/dL (31.0-37.0); MCV 85.2 fL (80.0-100.0); Mean Platelet Volume 6.8; Monocytes # (A) 0.4 k/uL (0-1.0); Monocytes % (A) 5 %; Neutrophils # (A) 8.7 k/uL (1.3-7.7); Neutrophils % (A) 90 %; Platelet Count 256 k/uL (150-450); Poikilocytosis Slight; RBC 4.55 m/uL (4.30-5.90); RDW 15.1 % (11.5-15.5); WBC 9.7 k/uL (3.8-10.6)
[2018-07-05] MEDS: FUROSEMIDE 100 MG in SODIUM CHLORIDE 0.9% 90 ML IV SCH ×2 (14:24→22:19)
[2018-07-05 15:08] VITALS: BMI 29.0
--- NOTE | 2018-07-05 16:52 | P.CNPUL ---
History of Present Illness Consult date: 07/05/18 Requesting physician: Anna Marie Horn Reason for consult: dyspnea, hypoxemia, abnormal CXR/CT Chief complaint: Acute pulmonary edema, acute hypoxemic respiratory failure History of present illness: This is a 58-year-old white male patient of Dr. Olivera with past medical history of coronary artery disease, with history of single vessel bypass grafting GODINEZ to LAD in 2017, and previous stenting, COPD, former smoker, ischemic cardiomyopathy with the severely impaired left ventricular systolic function with an EF between 20-25%, AICD placement, diabetes mellitus type 2, hypertension, hyperlipidemia, previous episode of myocardial infarction, sleep apnea on CPAP therapy, depression, who came into the hospital on 06/30/2018 with complaints of increased dyspnea, increased generalized weakness, and lightheadedness. EKG showed normal sinus rhythm with evidence of lateral wall infarct of undetermined age. Troponins were elevated at 0.089, and 0.187, and at 0.272. ProBNP was elevated at 4310, white blood cell count was within normal limits at 9.1, hemoglobin 13.1, INR was supratherapeutic at 4.8 patient is on Coumadin, likely for thromboembolic protection in view of cardiomyopathy. Patient was being treated for non-ST elevated ID. Initial chest x-ray on 06/30/2018 showed new mild pulmonary vascular congestion, interstitial edema and trace pleural effusions. He was started on IV Lasix, Imdur, losartan and Aldactone. He was diuresing. Today, 07/05/2018, patient underwent cardiac catheterization which revealed calcified left main coronary artery which was free of significant stenosis, 80% lesion in the LAD in the proximal part and total occlusion in its midportion, mid circumflex coronary artery was stented before and the stent was patent, the ostial portion of the circumflex showed a 70-80% stenosis in the artery was heavily calcified and eccentric. There was diffuse disease involving the right coronary artery and at her to be chronically occluded. GODINEZ to LAD graft was patent. Patient had his circumflex artery stented, and following the procedure but experiencing acute shortness of breath, and is placed on a percent nonrebreather, he was given a dose of IV Lasix, and stat chest x-ray was obtained, and showed cardiomegaly, COPD, and interstitial venous congestion, pulmonary edema. He was transferred to the intensive care unit for further monitoring. He was started on Lasix drip at 10 mg per hour, nitroglycerin drip at 15 mics per minute. He is starting to diurese, he is on heparin drip weight-based protocol. He is breathing easier, his FiO2 is down to 50%, lung sounds are diminished. The blood gas was obtained, and showed pO2 of 195, pCO2 of 36, pH of 7.37, this was done and FiO2 of 100%. Review of Systems All systems: negative Constitutional: Denies chills, Denies fever Eyes: denies blurred vision, denies pain Ears, nose, mouth and throat: Denies headache, Denies sore throat Cardiovascular: Reports chest pain, Reports leg edema, Denies shortness of breath Respiratory: Reports dyspnea, Denies cough Gastrointestinal: Denies abdominal pain, Denies diarrhea, Denies nausea, Denies vomiting Musculoskeletal: Denies myalgias Integumentary: Denies pruritus, Denies rash Neurological: Denies numbness, Denies weakness Psychiatric: Denies anxiety, Denies depression Endocrine: Denies fatigue, Denies weight change Past Medical History Past Medical History: Coronary Artery Disease (CAD), COPD, Diabetes Mellitus, Hyperlipidemia, Hypertension, Myocardial Infarction (ID), Musculoskeletal Disorder, Sleep Apnea/CPAP/BIPAP Additional Past Medical History / Comment(s): CMP; HAS AICD. See Dr Dow's H&P. LOWER BACK, HIP PAIN, R/T HX MANUAL LABOR. USES CPAP. HX ID's 1997, 2004, 2010, 2016 Last Myocardial Infarction Date:: 01/2017 History of Any Multi-Drug Resistant Organisms: None Reported Past Surgical History: AICD, Coronary Bypass/CABG, Heart Catheterization With Stent Additional Past Surgical History / Comment(s): 1 VESSEL CABG 01/2017. STENT X3. Hemorrhoidectomy. AICD, [employer], 10/08/17. Past Anesthesia/Blood Transfusion Reactions: No Reported Reaction Date of Last Stent Placement:: 2016 Type of Cardiac Device: AICD Device Placement Date:: 09/28/17 Past Psychological History: Depression Smoking Status: Former smoker Past Alcohol Use History: None Reported Additional Past Alcohol Use History / Comment(s): Quit Smoking 01/2017, smoked for 40 years, 1-2ppd. Past Drug Use History: Marijuana Additional Drug Use History / Comment(s): OCC USE ONLY - Past Family History Father Family Medical History: Cancer Mother Family Medical History: Coronary Artery Disease (CAD), Diabetes Mellitus Brother(s) Family Medical History: Coronary Artery Disease (CAD), Diabetes Mellitus Medications and Allergies Home Medications Medication Instructions Recorded Confirmed Type Isosorbide Mononitrate ER [Imdur] 30 mg PO DAILY #30 tab.er.24h 02/13/17 06/30/18 Rx Losartan [Cozaar] 50 mg PO DAILY #30 tab 02/13/17 06/30/18 Rx Empagliflozin/Linagliptin 1 tab PO DAILY 08/27/17 06/30/18 History [Glyxambi 25 mg-5 mg Tablet] FLUoxetine HCL 20 mg PO DAILY 08/27/17 06/30/18 History glipiZIDE [Glucotrol] 10 mg PO BID 08/27/17 06/30/18 History Spironolactone [Aldactone] 25 mg PO DAILY #90 tablet 09/29/17 06/30/18 Rx Atorvastatin [Lipitor] 80 mg PO HS 03/12/18 06/30/18 History Carvedilol [Coreg] 6.25 mg PO BID 03/12/18 06/30/18 History Hydrocodone/Acetaminophen [[place] 1 tab PO TID PRN 06/30/18 06/30/18 History 10-325] Warfarin [Coumadin] 2.5 mg PO SUTUTHSA 06/30/18 06/30/18 History Warfarin [Coumadin] 5 mg PO MOWEFR 06/30/18 06/30/18 History Allergies Allergy/AdvReac Type Severity Reaction Status Date / Time No Known Allergies Allergy Verified 06/30/18 11:52 Physical Exam Vitals: Vital Signs Temp Pulse Pulse Resp BP BP BP 07/05/18 16:00 97.8 F 81 27 H 118/70 07/05/18 15:30 80 18 117/76 07/05/18 15:00 84 30 H 07/05/18 14:45 81 14 07/05/18 14:30 79 17 07/05/18 14:15 89 29 H 120/74 07/05/18 14:00 89 29 H 135/79 07/05/18 13:51 07/05/18 13:49 95 24 07/05/18 13:45 93 07/05/18 13:30 89 17 140/87 07/05/18 13:08 93 26 H 07/05/18 12:42 91 18 07/05/18 12:35 07/05/18 12:30 07/05/18 12:22 98 07/05/18 12:15 93 24 07/05/18 12:13 25 H 07/05/18 12:12 07/05/18 12:09 89 18 07/05/18 11:49 85 18 120/79 07/05/18 11:07 81 18 166/72 07/05/18 10:45 81 18 122/72 07/05/18 10:34 18 118/83 07/05/18 08:00 96.1 F L 83 18 109/68 07/05/18 04:10 98.0 F 83 16 108/71 07/04/18 23:59 96.9 F L 84 16 100/65 07/04/18 21:29 98.0 F 85 18 102/73 BP Pulse Ox 07/05/18 16:00 97 07/05/18 15:30 97 07/05/18 15:00 97 07/05/18 14:45 95 07/05/18 14:30 95 07/05/18 14:15 96 07/05/18 14:00 95 07/05/18 13:51 96 07/05/18 13:49 07/05/18 13:45 07/05/18 13:30 98 07/05/18 13:08 98 07/05/18 12:42 134/102 99 07/05/18 12:35 169/125 07/05/18 12:30 151/98 07/05/18 12:22 155/94 07/05/18 12:15 164/102 98 07/05/18 12:13 174/106 99 07/05/18 12:12 180/121 07/05/18 12:09 173/111 97 07/05/18 11:49 93 L 07/05/18 11:07 92 L 07/05/18 10:45 92 L 07/05/18 10:34 93 L 07/05/18 08:00 98 07/05/18 04:10 97 07/04/18 23:59 96 07/04/18 21:29 95 Intake and Output 07/05/18 07/05/1819 06:59 14:59 22:59 Intake Total 379.325 40 Output Total 800 790 675 Balance -800 -410.673 -877 Intake: IV 372 40 0.9 40 40 Intake, IV Titration 7.325 Amount Nitroglycerin-D5w Pmx 50 7.325 mg In Dextrose/Water 1 250ml.bag @ 10 MCG/MIN 3 mls/hr IV .Q24H [facility] Rx#: [id number] Output: Urine 800 790 675 Other: Voiding Method Urinal # Voids 1 Weight 94.3 kg 94.3 kg ABP, PAP, CO, CI - Last 8 Hours Arterial Blood Pressure 119/73 Arterial Blood Pressure 110/68 Arterial Blood Pressure 114/75 Arterial Blood Pressure 107/64 Arterial Blood Pressure 109/61 Arterial Blood Pressure 130/79 Arterial Blood Pressure 124/68 Arterial Blood Pressure 151/85 GENERAL EXAM: Alert, pleasant, 58-year-old white male on the 50% FiO2 via partial rebreather mask, comfortable in no apparent distress. HEAD: Normocephalic/atraumatic. EYES: Normal reaction of pupils, equal size. Conjunctiva pink, sclera white. NOSE: Clear with pink turbinates. THROAT: No erythema or exudates. NECK: No masses, no JVD, no thyroid enlargement, no adenopathy. CHEST: No chest wall deformity. Symmetrical expansion. LUNGS: Equal air entry with diminished breath sounds bilaterally, CVS: Regular rate and rhythm, normal S1 and S2, no gallops, no murmurs, no rubs ABDOMEN: Soft, nontender. No hepatosplenomegaly, normal bowel sounds, no guarding or rigidity. EXTREMITIES: No clubbing, 1+ pitting edema in the pedal and pretibial areas, no cyanosis, 2+ pulses and upper and lower extremities. MUSCULOSKELETAL: Muscle strength and tone normal. SPINE: No scoliosis or deformity SKIN: No rashes CENTRAL NERVOUS SYSTEM: Alert and oriented -3. No focal deficits, tone is normal in all 4 extremities. PSYCHIATRIC: Alert and oriented -3. Appropriate affect. Intact judgment and insight. Results - Laboratory Findings CBC and BMP: 07/05/18 14:07 07/04/18 06:07 ABG ABG pH 7.37 (7.35-7.45) 07/05/18 13:36 ABG pCO2 36 mmHg (35-45) 07/05/18 13:36 ABG pO2 195 mmHg (83-108) H 07/05/18 13:36 ABG O2 Saturation 99.0 % (94-97) H 07/05/18 13:36 PT/INR, D-dimer PT 13.4 sec (9.0-12.0) H 07/05/18 05:35 INR 1.3 (<1.2) H 07/05/18 05:35 Abnormal lab findings: Abnormal Labs 06/30/18 06/30/18 06/30/18 12:13 12:13 12:13 Hgb Hct MCHC Neutrophils # Lymphocytes # PT 46.5 H INR 4.8 H APTT 34.9 H ABG pO2 ABG O2 Saturation Sodium Carbon Dioxide BUN Glucose 146 H POC Glucose (mg/dL) Hemoglobin A1c Troponin I 0.089 H* Total Protein 6.1 L 07/01/18 07/01/18 07/01/18 05:48 06:29 09:22 Hgb Hct MCHC Neutrophils # Lymphocytes # PT 47.1 H INR 4.9 H APTT ABG pO2 ABG O2 Saturation Sodium Carbon Dioxide BUN Glucose POC Glucose (mg/dL) 160 H Hemoglobin A1c Troponin I 0.187 H* Total Protein 07/01/18 07/01/18 07/01/18 11:17 15:34 16:28 Hgb Hct MCHC Neutrophils # Lymphocytes # PT INR APTT ABG pO2 ABG O2 Saturation Sodium Carbon Dioxide BUN Glucose POC Glucose (mg/dL) 172 H 184 H Hemoglobin A1c Troponin I 0.272 H* Total Protein 07/01/18 07/02/18 07/02/18 20:32 06:00 06:00 Hgb Hct MCHC Neutrophils # Lymphocytes # PT 25.4 H INR 2.6 H APTT ABG pO2 ABG O2 Saturation Sodium Carbon Dioxide BUN Glucose POC Glucose (mg/dL) 209 H Hemoglobin A1c 8.6 H Troponin I Total Protein 07/02/18 07/02/18 07/02/18 06:00 06:20 11:38 Hgb Hct MCHC Neutrophils # Lymphocytes # PT INR APTT ABG pO2 ABG O2 Saturation Sodium 136 L Carbon Dioxide 20 L BUN 28 H Glucose 174 H POC Glucose (mg/dL) 170 H 191 H Hemoglobin A1c Troponin I Total Protein 07/02/18 07/02/18 07/03/18 17:01 20:34 06:10 Hgb Hct MCHC Neutrophils # Lymphocytes # PT INR APTT ABG pO2 ABG O2 Saturation Sodium Carbon Dioxide BUN Glucose POC Glucose (mg/dL) 170 H 174 H 154 H Hemoglobin A1c Troponin I Total Protein 07/03/18 07/03/18 07/03/18 06:28 06:28 06:28 Hgb 12.0 L Hct MCHC 30.7 L Neutrophils # Lymphocytes # PT 17.0 H INR 1.7 H APTT ABG pO2 ABG O2 Saturation Sodium Carbon Dioxide BUN 30 H Glucose 168 H POC Glucose (mg/dL) Hemoglobin A1c Troponin I Total Protein 07/03/18 07/03/18 07/03/18 11:30 16:16 20:38 Hgb Hct MCHC Neutrophils # Lymphocytes # PT INR APTT ABG pO2 ABG O2 Saturation Sodium Carbon Dioxide BUN Glucose POC Glucose (mg/dL) 268 H 191 H 251 H Hemoglobin A1c Troponin I Total Protein 07/03/18 07/04/18 07/04/18 22:37 06:07 06:07 Hgb 12.2 L Hct 38.2 L MCHC Neutrophils # Lymphocytes # PT INR APTT 39.1 H 50.8 H ABG pO2 ABG O2 Saturation Sodium Carbon Dioxide BUN Glucose POC Glucose (mg/dL) Hemoglobin A1c Troponin I Total Protein 07/04/18 07/04/18 07/04/18 06:07 06:22 11:30 Hgb Hct MCHC Neutrophils # Lymphocytes # PT INR APTT ABG pO2 ABG O2 Saturation Sodium 136 L Carbon Dioxide BUN 30 H Glucose 176 H POC Glucose (mg/dL) 187 H 275 H Hemoglobin A1c Troponin I Total Protein 07/04/18 07/04/18 07/05/18 16:36 21:04 05:35 Hgb 11.9 L Hct MCHC 30.3 L Neutrophils # Lymphocytes # PT INR APTT ABG pO2 ABG O2 Saturation Sodium Carbon Dioxide BUN Glucose POC Glucose (mg/dL) 178 H 172 H Hemoglobin A1c Troponin I Total Protein 07/05/18 07/05/18 07/05/18 05:35 05:44 11:21 Hgb Hct MCHC Neutrophils # Lymphocytes # PT 13.4 H INR 1.3 H APTT 37.6 H ABG pO2 ABG O2 Saturation Sodium Carbon Dioxide BUN Glucose POC Glucose (mg/dL) 134 H 197 H Hemoglobin A1c Troponin I Total Protein 07/05/18 07/05/18 07/05/18 13:06 13:36 14:07 Hgb 12.4 L Hct 38.8 L MCHC Neutrophils # 8.7 H Lymphocytes # 0.5 L PT INR APTT ABG pO2 195 H ABG O2 Saturation 99.0 H Sodium Carbon Dioxide BUN Glucose POC Glucose (mg/dL) 252 H Hemoglobin A1c Troponin I Total Protein - Diagnostic Findings Chest x-ray: report reviewed, image reviewed Assessment and Plan Plan: Assessment: #1. Acute hypoxemic respiratory failure secondary to acute exacerbation of congestive heart failure with systolic dysfunction #2. Coronary artery disease, underwent cardiac catheterization today with stenting of the circumflex coronary artery. GODINEZ to LAD graft was patent, and there was chronically occluded RCA. History of single-vessel bypass GODINEZ to LAD in 2017 #3. Acute non-ST elevated myocardial infarction #4. Ischemic cardiomyopathy, with a severely impaired left ventricular systolic function with an EF of 20-25%, status post AICD placement #5. Diabetes mellitus #6. COPD, with FEV1 of 63% of predicted, consistent with stage II COPD, not oxygen or steroid dependent at baseline #7. Ex-smoker, quit in 2017 #8. Obstructive sleep apnea, on CPAP therapy #9. Hypertension, hyperlipidemia #10. Depression Plan: Continue with diuresis, patient is starting to put out a large amount of urine volume, feeling better, breathing easier, continue weaning FiO2, COPD is stable right now, no acute exacerbation, will add breathing treatments on an as-needed basis. No fever or chills, no complaints of chest pain, he has been started on antiplatelet therapy per cardiology, remains on nitroglycerin drip and heparin. Patient will remain the intensive care unit, acute I know's, daily weights, chest x-ray in the morning. Blood gases and chest x-rays were reviewed by Dr. Mathias, patient was seen and evaluated by Dr. Mathias. Repeat electrolytes and renal profile in the morning, daily PT/INR. We'll continue to follow I performed a history & physical examination of the patient and discussed their management with my nurse practitioner, Fiorella Jeff. I reviewed the nurse practitioner's note and agree with the documented findings and plan of care. Lung sounds are positive for diminished breath sounds. The findings and the impression was discussed with the patient. I attest to the documentation by the nurse practitioner. Time with Patient: Greater than 30
[2018-07-05 17:09] LABS: Glucose,Whole Blood 222 mg/dL (75-99)
[2018-07-05 17:24] LABS: Anion Gap 10 mmol/L; Blood Urea Nitrogen 22 mg/dL (9-20); Calcium 8.6 mg/dL (8.4-10.2); Carbon Dioxide 23 mmol/L (22-30); Chloride 105 mmol/L (98-107); Glucose 229 mg/dL (74-99); Potassium 4.1 mmol/L (3.5-5.1); Sodium 138 mmol/L (137-145)
[2018-07-05] MEDS ORDERED: Potassium Replacement Protocol 1 EACH MISC MISCELLANE PRN (17:27)
[2018-07-05] MEDS ORDERED: Magnesium Replacement Protocol 1 EACH MISC MISCELLANE PRN (17:27)
[2018-07-05] MEDS: ceFAZolin (PMX-bag) 1,000 MG in DEXTROSE/WATER 1 50ML.BAG IVPB SCH ×2 (17:54→23:58)
--- NOTE | 2018-07-05 17:58 | PTCA ---
PERCUTANEOUSTRANS CORORONARY ANGIOGRAPHY DATE OF SERVICE: 07/05/2018 PROCEDURE: Percutaneous transluminal coronary angioplasty and stenting of ostial circumflex coronary artery with a drug-eluting stent. PERFORMED BY: Dr. Thalia Horn. Moderate conscious sedation time was 26 minutes. CLINICAL INFORMATION: Mr. Darien Adams is a 58-year-old gentleman with significant ischemic cardiomyopathy, multiple percutaneous coronary interventions, and in January of 2017 following unsuccessful PCI he went on to have single GODINEZ to LAD. He had a single-chamber ICD placed as well after his open heart surgery. He has been having symptoms of shortness of breath and came into the hospital with nondescript symptoms, had mild troponin elevation suggestive of [id number] [place] and underwent a cardiac cath performed by Dr. José which revealed that the GODINEZ was patent and RCA had diffuse disease, but the circumflex which had stents in the mid portion was patent. But the ostium of the circumflex as it came off from the left main had an 80% or so lesion, eccentric in nature, best seen in the AP caudal and LORELEI caudal projections. He was advised intervention that was performed in the same setting. I explained to the patient that this is a high-risk procedure, given the fact that this is his only good vessel. His LAD was infarcted territory and the GODINEZ is patent, but RCA has diffuse disease. PROCEDURE NOTE: The existing 6-[place]ov[place] introducer in the right femoral artery was used to perform the procedure. I used a run-through wire to cross the lesion. I pre-dilated with a 3.0 caliber 12 mm NC Trek balloon. I then deployed a 3.25 caliber 12 mm Xience stent at 13 atmospheres. Patient had chest pain and significant hypotension, requiring me to stop the inflation at 30 seconds. Overall angiographic result was excellent. There was no complication. Patient had transient hypotension requiring me to take the catheter out to improve the perfusion in the left system. Patient has significant LV dysfunction, also. The results were discussed with the patient and family. I explained to him that he remains at a high risk for sudden , given his ischemic cardiomyopathy and single vessel that was perfusing most of his myocardium of the circumflex, which is now stented. He should do hopefully well. He received Angiomax bolus and infusion as per protocol and also received Brilinta 180 mg orally. Results were discussed with the patient and family and the sheath was sutured and he was sent to the room in a hemodynamically stable condition. Moderate conscious sedation time was 26 minutes. Patient was administered Versed, and oxygen saturation, hemodynamics and EKG were monitored closely. GABRIELA / NIKOLAI: [id number] /
[2018-07-05] MEDS: TICAGRELOR 90 MG TAB PO SCH (21:08)
[2018-07-05] MEDS: ATORVASTATIN 80 MG TAB PO SCH (21:08)
[2018-07-05] MEDS ORDERED: MAGNESIUM SULFATE-D5W PMX 1 GM in DEXTROSE/WATER 1 100ML.BAG IVPB ONE (21:17)
[2018-07-05 21:18] LABS: Glucose,Whole Blood 171 mg/dL (75-99)
[2018-07-06] MEDS: SODIUM CHLORIDE 0.9% 1,000 ML IV SCH (04:39)
[2018-07-06 05:27] LABS: Basophils % (A) 0 %; Eosinophils # (A) 0.1 k/uL (0-0.7); Eosinophils % (A) 1 %; HCT 37.7 % (39.0-53.0); HGB 11.8 gm/dL (13.0-17.5); Hypochromasia Moderate; Lymphocytes % (A) 12 %; MCH 26.3 pg (25.0-35.0); MCHC 31.3 g/dL (31.0-37.0); MCV 83.9 fL (80.0-100.0); Mean Platelet Volume 7.1; Monocytes # (A) 0.6 k/uL (0-1.0); Monocytes % (A) 8 %; Neutrophils # (A) 6.5 k/uL (1.3-7.7); Neutrophils % (A) 77 %; Platelet Count 240 k/uL (150-450); Poikilocytosis Slight; WBC 8.4 k/uL (3.8-10.6)
[2018-07-06 05:39] LABS: INR 1.2 (<1.2); Partial Thromboplastin Time 30.3 sec (22.0-30.0); Prothrombin Time 12.7 sec (9.0-12.0)
[2018-07-06 05:53] LABS: Anion Gap 7 mmol/L; Blood Urea Nitrogen 18 mg/dL (9-20); Calcium 8.5 mg/dL (8.4-10.2); Carbon Dioxide 27 mmol/L (22-30); Chloride 103 mmol/L (98-107); Glucose 230 mg/dL (74-99); Magnesium 1.8 mg/dL (1.6-2.3); Potassium 3.4 mmol/L (3.5-5.1); Sodium 137 mmol/L (137-145)
[2018-07-06 06:06] LABS: Glucose,Whole Blood 217 mg/dL (75-99)
[2018-07-06] MEDS: CARVEDILOL 6.25 MG TAB PO SCH ×2 (06:16→17:30)
[2018-07-06] MEDS: INSULIN ASPART (NovoLOG) 100 UNIT/ML VIAL SQ SCH ×4 (06:16→20:51)
[2018-07-06] MEDS: MAGNESIUM SULFATE-D5W PMX 1 GM in DEXTROSE/WATER 1 100ML.BAG IVPB SCH ×2 (06:17→08:54)
[2018-07-06] MEDS ORDERED: POTASSIUM CHLORIDE ER 20 MEQ TAB.ER PO STA (07:09)
[2018-07-06] MEDS: ceFAZolin (PMX-bag) 1,000 MG in DEXTROSE/WATER 1 50ML.BAG IVPB SCH ×3 (07:45→23:46)
[2018-07-06] MEDS ORDERED: POTASSIUM CHLORIDE ER 20 MEQ TAB.ER PO SCH (08:00)
--- NOTE | 2018-07-06 08:26 | XR ---
EXAMINATION TYPE: XR chest 1V portable DATE OF EXAM: 07/06/2018 COMPARISON: 07/05/2018 HISTORY: Difficulty in breathing TECHNIQUE: Single frontal view of the chest is obtained. FINDINGS: Heart is enlarged and is postoperative change. Cardiac device noted. Diffuse interstitial pattern. Diffuse osteopenia. Arthropathy of the shoulders. No pneumothorax. IMPRESSION: COPD with cardiomegaly correlate for CHF stable in appearance. Otherwise consider inters titial pneumonitis.
[2018-07-06] MEDS: ASPIRIN 81 MG PO SCH (08:28)
[2018-07-06] MEDS: SPIRONOLACTONE 25 MG TAB PO SCH (08:28)
[2018-07-06] MEDS: HYDROcodone/APAP 10-325MG 1 EACH TAB PO PRN ×3 (08:29→23:46)
[2018-07-06] MEDS: LOSARTAN 50 MG TAB PO SCH (08:29)
[2018-07-06] MEDS: TICAGRELOR 90 MG TAB PO SCH ×2 (08:30→20:52)
[2018-07-06] MEDS ORDERED: FUROSEMIDE 10 MG/ML 4 ML VIAL IV SCH (09:00)
--- NOTE | 2018-07-06 11:08 | PN ---
PROGRESS NOTE Darien is a 58-year-old gentleman who is admitted to hospital with congestive heart failure exacerbation, had mild elevation in troponins, went on to have cardiac catheterization and angioplasty of ostial circumflex coronary artery. Post procedure, patient developed an acute pulmonary edema and was transferred to ICU. This morning patient is on IV Lasix and is feeling much better. He is putting out urine, less short of breath, oxygenating better. He is currently on Lasix IV 40 mg q.8 hours, Coreg 6.25 b.i.d., Lipitor, aspirin and Brilinta along with losartan. He is on Imdur 30 mg daily also. On exam, comfortable at rest. Vital signs are stable. Chest exam reveals good air entry bilaterally. I do not hear any crackles or rhonchi. Heart exam reveals first and second heart sounds. No gallop. No murmur. Abdomen is soft, nontender. Examination of extremities did not reveal any edema. Peripheral pulses are felt. Labs show that the hemoglobin is 11.8, platelet count is 240. Potassium is 3.4. Creatinine is 0.5. ASSESSMENT: 1. Non ST-segment elevation myocardial infarction, status post catheterization and angioplasty of [place] circumflex coronary artery. 2. Acute pulmonary edema. 3. Ischemic cardiomyopathy. PLAN: Patient is doing better. We will continue with the IV Lasix. We can transfer him out of ICU tomorrow. GABRIELA / NIKOLAI: [id number] /
[2018-07-06] MEDS: ISOSORBIDE MONONITRATE ER 30 MG TAB.ER.24H PO SCH (11:28)
[2018-07-06 11:30] LABS: Glucose,Whole Blood 253 mg/dL (75-99)
--- NOTE | 2018-07-06 11:33 | P.PN ---
Subjective Progress Note Date: 07/06/18 Principal diagnosis: Acute hypoxic respiratory failure secondary to systolic dysfunction and congestive heart failure. This is a 58-year-old white male patient of Dr. Olivera with past medical history of coronary artery disease, with history of single vessel bypass grafting GODINEZ to LAD in 2017, and previous stenting, COPD, former smoker, ischemic cardiomyopathy with the severely impaired left ventricular systolic function with an EF between 20-25%, AICD placement, diabetes mellitus type 2, hypertension, hyperlipidemia, previous episode of myocardial infarction, sleep apnea on CPAP therapy, depression, who came into the hospital on 06/30/2018 with complaints of increased dyspnea, increased generalized weakness, and lightheadedness. EKG showed normal sinus rhythm with evidence of lateral wall infarct of undetermined age. Troponins were elevated at 0.089, and 0.187, and at 0.272. ProBNP was elevated at 4310, white blood cell count was within normal limits at 9.1, hemoglobin 13.1, INR was supratherapeutic at 4.8 patient is on Coumadin, likely for thromboembolic protection in view of cardiomyopathy. Patient was being treated for non-ST elevated [place]. Initial chest x-ray on 06/30/2018 showed new mild pulmonary vascular congestion, interstitial edema and trace pleural effusions. He was started on IV Lasix, Imdur, losartan and Aldactone. He was diuresing. Today, 07/05/2018, patient underwent cardiac catheterization which revealed calcified left main coronary artery which was free of significant stenosis, 80% lesion in the LAD in the proximal part and total occlusion in its midportion, mid circumflex coronary artery was stented before and the stent was patent, the ostial portion of the circumflex showed a 70-80% stenosis in the artery was heavily calcified and eccentric. There was diffuse disease involving the right coronary artery and at her to be chronically occluded. GODINEZ to LAD graft was patent. Patient had his circumflex artery stented, and following the procedure but experiencing acute shortness of breath, and is placed on a percent nonrebreather, he was given a dose of IV Lasix, and stat chest x-ray was obtained, and showed cardiomegaly, COPD, and interstitial venous congestion, pulmonary edema. He was transferred to the intensive care unit for further monitoring. He was started on Lasix drip at 10 mg per hour, nitroglycerin drip at 15 mics per minute. He is starting to diurese, he is on heparin drip weight-based protocol. He is breathing easier, his FiO2 is down to 50%, lung sounds are diminished. The blood gas was obtained, and showed pO2 of 195, pCO2 of 36, pH of 7.37, this was done and FiO2 of 100%. Patient was reevaluated today on 07/06/2018, remains in the ICU, he was on Lasix drip overnight, and made a significant amount of urine output. Clinically he feels much better, breathing a lot easier, however his chest x-ray continues to show evidence of interstitial edema bilaterally. He was seen by cardiology judy song today, and he was switched from Lasix drip to Lasix IV push. Labs today showed relatively normal CBC, hemoglobin is 11.8, his electrolytes are relatively normal except for slightly low potassium of 3.4 being corrected. Renal profile is normal bicarb is normal. All medications were reviewed, presently on Lasix at 40 mg IV push every 8 hours, he is also on multiple cardiac meds as listed. Objective - Vital Signs Vital signs: Vital Signs Temp 97.8 F 07/06/18 03:30 Pulse 82 07/06/18 11:00 Resp 10 L 07/06/18 11:00 BP 119/74 07/06/18 11:00 Pulse Ox 96 07/06/18 11:00 Intake & Output 07/05/18 07/06/18 07/06/18 18:59 06:59 18:59 Intake Total 474.325 598.167 383 Output Total 1945 3035 630 Balance -1470.675 -2436.833 -247 Weight 94.3 kg 88.1 kg Intake: IV 467 299 83 0.9 120 260 80 Pressure bag 0.9 15 39 3 Intake, IV Titration 7.325 299.167 150 Amount Furosemide 100 mg In 99.167 Sodium Chloride 0.9% 90 ml @ 10 MG/HR 10 mls/hr IV .Q10H DENIS Rx#: [id number] Magnesium Sulfate-D5w Pmx 100 1 gm In Dextrose/Water 1 100ml.bag @ 100 mls/hr IVPB ONCE ONE Rx#: [id number] Magnesium Sulfate-D5w Pmx 100 1 gm In Dextrose/Water 1 100ml.bag @ 100 mls/hr IVPB Q1H DENIS Rx#: [id number] Nitroglycerin-D5w Pmx 50 7.325 mg In Dextrose/Water 1 250ml.bag @ 10 MCG/MIN 3 mls/hr IV .Q24H DENIS Rx#: [id number] ceFAZolin 1,000 mg In 100 50 Dextrose/Water 1 50ml.bag @ 100 mls/hr IVPB Q8HR DENIS Rx#:[id number] Oral 150 Output: Urine 1945 3035 630 Other: Voiding Method Urinal Urinal Urinal # Bowel Movements 1 ABP, PAP, CO, CI - Last Documented Arterial Blood Pressure - Exam GENERAL EXAM: Alert, pleasant, 58-year-old white male on 10 L high flow nasal cannula O2 sat 96% in no distress. HEAD: Normocephalic/atraumatic. HEENT: PERRLA, EOMI, moist mucous membranes, no icterus, no JVD, no stridor, no neck masses, no thyromegaly. CHEST: No chest wall deformity. Symmetrical expansion. LUNGS: Equal air entry with diminished breath sounds bilaterally, minimal fine crackles at the bases bilaterally. CVS: Regular rate and rhythm, normal S1 and S2, no gallops, 2/6 systolic murmur at the apex. ABDOMEN: Soft, nontender. No hepatosplenomegaly, normal bowel sounds, no guarding or rigidity. EXTREMITIES: No clubbing, trace of bipedal edema no cyanosis, 2+ pulses and upper and lower extremities. MUSCULOSKELETAL: Muscle strength and tone normal. SPINE: No scoliosis or deformity SKIN: No rashes CENTRAL NERVOUS SYSTEM: Alert and oriented -3. No focal deficits, tone is normal in all 4 extremities. PSYCHIATRIC: Normal mood, affect and mental status examination. - Labs CBC & Chem 7: 07/06/18 05:15 07/06/18 05:15 Labs: Abnormal Lab Results - Last 24 Hours (Table) 07/05/18 07/05/18 07/05/18 Range/Units 11:21 13:06 13:36 Hgb (13.0-17.5) gm/dL Hct (39.0-53.0) % Neutrophils # (1.3-7.7) k/uL Lymphocytes # (1.0-4.8) k/uL PT (9.0-12.0) sec INR (<1.2) APTT (22.0-30.0) sec ABG pO2 195 H (83-108) mmHg ABG O2 Saturation 99.0 H (94-97) % Potassium (3.5-5.1) mmol/L BUN (9-20) mg/dL Creatinine (0.66-1.25) mg/dL Glucose (74-99) mg/dL POC Glucose (mg/dL) 197 H 252 H (75-99) mg/dL 07/05/18 07/05/18 07/05/18 Range/Units 14:07 17:00 17:00 Hgb 12.4 L (13.0-17.5) gm/dL Hct 38.8 L (39.0-53.0) % Neutrophils # 8.7 H (1.3-7.7) k/uL Lymphocytes # 0.5 L (1.0-4.8) k/uL PT (9.0-12.0) sec INR (<1.2) APTT 31.2 H (22.0-30.0) sec ABG pO2 (83-108) mmHg ABG O2 Saturation (94-97) % Potassium (3.5-5.1) mmol/L BUN 22 H (9-20) mg/dL Creatinine 0.63 L (0.66-1.25) mg/dL Glucose 229 H (74-99) mg/dL POC Glucose (mg/dL) (75-99) mg/dL 07/05/18 07/05/18 07/06/18 Range/Units 17:06 21:04 05:15 Hgb 11.8 L (13.0-17.5) gm/dL Hct 37.7 L (39.0-53.0) % Neutrophils # (1.3-7.7) k/uL Lymphocytes # (1.0-4.8) k/uL PT (9.0-12.0) sec INR (<1.2) APTT (22.0-30.0) sec ABG pO2 (83-108) mmHg ABG O2 Saturation (94-97) % Potassium (3.5-5.1) mmol/L BUN (9-20) mg/dL Creatinine (0.66-1.25) mg/dL Glucose (74-99) mg/dL POC Glucose (mg/dL) 222 H 171 H (75-99) mg/dL 07/06/18 07/06/18 07/06/18 Range/Units 05:15 05:15 06:04 Hgb (13.0-17.5) gm/dL Hct (39.0-53.0) % Neutrophils # (1.3-7.7) k/uL Lymphocytes # (1.0-4.8) k/uL PT 12.7 H (9.0-12.0) sec INR 1.2 H (<1.2) APTT 30.3 H (22.0-30.0) sec ABG pO2 (83-108) mmHg ABG O2 Saturation (94-97) % Potassium 3.4 L (3.5-5.1) mmol/L BUN (9-20) mg/dL Creatinine 0.52 L (0.66-1.25) mg/dL Glucose 230 H (74-99) mg/dL POC Glucose (mg/dL) 217 H (75-99) mg/dL Assessment and Plan Assessment: #1. Acute hypoxemic respiratory failure secondary to acute exacerbation of congestive heart failure with systolic dysfunction, known history of ischemic cardiomyopathy #2. Coronary artery disease, underwent cardiac catheterization today with stenting of the circumflex coronary artery. GODINEZ to LAD graft was patent, and there was chronically occluded RCA. History of single-vessel bypass GODINEZ to LAD in 2017 #3. Acute non-ST elevated myocardial infarction #4. Ischemic cardiomyopathy, with a severely impaired left ventricular systolic function with an EF of 20-25%, status post AICD placement #5. Diabetes mellitus #6. Moderate severe COPD, with FEV1 of 63% of predicted, consistent with stage II COPD, not oxygen or steroid dependent at baseline #7. Ex-smoker, quit in 2017 #8. Obstructive sleep apnea, on CPAP therapy #9. Hypertension, hyperlipidemia #10. Depression Recommendation: Continue diuretics, continue present cardiac meds including nitroglycerin, heparin, statins, Coreg, continue bronchodilators as needed, clinically the patient improved significantly after a Lasix drip, presently on Lasix IV push, we will continue to monitor in the ICU for the next 24 hours, and possibly transferred to a cardiac floor tomorrow. Prognosis remains guarded considering his severe LV dysfunction. Discussed his condition with him and his family at bedside. Time with Patient: Less than 30
--- NOTE | 2018-07-06 15:08 | P.PN ---
Subjective Progress Note Date: 07/06/18 This is a 58-year-old gentleman admitted with acute OR, and multiple other medical issues. Yesterday underwent cardiac catheterization with angioplasty, reporting severe 3 vessel CAD with patent GODINEZ to the LAD, 70-80% ostial stenosis of the circumflex ,stent to the circumflex. Post cardiac cath develope d flash pulmonary edema, received Lasix IV push, placed on a nonrebreather transferred to ICU. Maintained on Lasix and nitroglycerin drips throughout the night. Lasix drip converted to Lasix IV push this morning. Nitroglycerin drip currently being weaned off. Continues on heparin drip. Significant clinical improvement, feels better. Maintaining O2 sats in the high 90s on 4 L nasal cannula. Chest x-ray reporting COPD, cardiomegaly, stable pulmonary edema, possible interstitial pneumonitis Sheath to be pulled this morning, as per cardiology. Receiving supplements for potassium 3.4. Telemetry sinus rhythm. Denies chest pain, palpitations or increasing shortness of breath.] Objective - Vital Signs Vital signs: Vital Signs Temp 37.6 F L 07/06/18 12:00 Pulse 82 07/06/18 14:00 Resp 16 07/06/18 14:00 BP 112/65 07/06/18 14:00 Pulse Ox 96 07/06/18 14:00 Intake & Output 07/05/18 07/06/18 07/06/18 18:59 06:59 18:59 Intake Total 489.325 598.167 751.25 Output Total 1945 3035 810 Balance -1455.675 -2436.833 -58.75 Weight 94.3 kg 88.1 kg Intake: IV 467 299 143 0.9 120 260 140 Pressure bag 0.9 15 39 3 Intake, IV Titration 22.325 299.167 208.25 Amount Furosemide 100 mg In 99.167 Sodium Chloride 0.9% 90 ml @ 10 MG/HR 10 mls/hr IV .Q10H DENIS Rx#: [id number] Magnesium Sulfate-D5w Pmx 100 1 gm In Dextrose/Water 1 100ml.bag @ 100 mls/hr IVPB ONCE ONE Rx#: [id number] Magnesium Sulfate-D5w Pmx 100 1 gm In Dextrose/Water 1 100ml.bag @ 100 mls/hr IVPB Q1H DENIS Rx#: [id number] Nitroglycerin-D5w Pmx 50 22.325 58.25 mg In Dextrose/Water 1 250ml.bag @ 10 MCG/MIN 3 mls/hr IV .Q24H DENIS Rx#: [id number] ceFAZolin (PMX-bag) 1,000 100 50 mg In Dextrose/Water 1 50ml.bag @ 100 mls/hr IVPB Q8HR DENIS Rx#: [id number] Oral 400 Output: Urine 1945 3035 810 Other: Voiding Method Urinal Urinal Urinal # Voids 1 ABP, PAP, CO, CI - Last Documented Arterial Blood Pressure 91/91 - Exam PHYSICAL EXAM: VITAL SIGNS: As above GENERAL: Sitting up in bed, no acute distress HEENT: Conjunctivae normal. eyes normal. NECK: No JVD. No thyroid enlargement. No LNs CARDIOVASCULAR: S1, S2 muffled. Systolic murmur, no rubs, no gallops RESPIRATION: Breath sounds diminished in the bases. Fine bibasilar crackles, No rhonchi, no wheezing ABDOMEN: Soft, nontender . No guarding. no masses palpable.no hepatosplenomegaly .no guarding, no rigidity.Bowel sounds heard. LEGS: trace edema. no clubbing, no cyanosis. PSYCHIATRY: Alert and oriented -3, mood and affect normal. NERVOUS SYSTEM: Cranial N 2-12 grossly normal. Moves all 4 limbs. Diffuse weakness No focal deficits. Skin: no lesions, no rash - Labs CBC & Chem 7: 07/06/18 05:15 07/06/18 05:15 Labs: Abnormal Lab Results - Last 24 Hours (Table) 07/05/18 07/05/18 07/05/18 Range/Units 17:00 17:00 17:06 Hgb (13.0-17.5) gm/dL Hct (39.0-53.0) % PT (9.0-12.0) sec INR (<1.2) APTT 31.2 H (22.0-30.0) sec Potassium (3.5-5.1) mmol/L BUN 22 H (9-20) mg/dL Creatinine 0.63 L (0.66-1.25) mg/dL Glucose 229 H (74-99) mg/dL POC Glucose (mg/dL) 222 H (75-99) mg/dL 07/05/18 07/06/18 07/06/18 Range/Units 21:04 05:15 05:15 Hgb 11.8 L (13.0-17.5) gm/dL Hct 37.7 L (39.0-53.0) % PT (9.0-12.0) sec INR (<1.2) APTT (22.0-30.0) sec Potassium 3.4 L (3.5-5.1) mmol/L BUN (9-20) mg/dL Creatinine 0.52 L (0.66-1.25) mg/dL Glucose 230 H (74-99) mg/dL POC Glucose (mg/dL) 171 H (75-99) mg/dL 07/06/18 07/06/18 07/06/18 Range/Units 05:15 06:04 11:28 Hgb (13.0-17.5) gm/dL Hct (39.0-53.0) % PT 12.7 H (9.0-12.0) sec INR 1.2 H (<1.2) APTT 30.3 H (22.0-30.0) sec Potassium (3.5-5.1) mmol/L BUN (9-20) mg/dL Creatinine (0.66-1.25) mg/dL Glucose (74-99) mg/dL POC Glucose (mg/dL) 217 H 253 H (75-99) mg/dL Assessment and Plan Assessment: -Acute NSTEMI, status post cardiac cath reporting severe three-vessel CAD with patent GODINEZ to the LAD, 70-80% ostial stenosis in the circumflex, circumflex stent. -Acute hypoxic respiratory failure secondary to acute CHF systolic dysfunction -Ischemic Cardiomyopathy, status post AICD placement -Diabetes mellitus -COPD -Obstructive sleep apnea, on CPAP -History of nicotine dependence -Hypertension -Hyperlipidemia -Depression -Hypokalemia Plan: Continue on current medication regime ,monitoring and symptomatic treatment. Continue on diuretics, nebulized bronchodilators heparin, beta timothy, statin. Nitroglycerin currently being weaned off. Close monitoring of electrolytes with repeat labs ordered for a.m. Prognosis guarded given multiple complex medical issues. Potassium replacement in progress. The impression and plan of care has been dictated as directed. : I performed a history and examination of this patient, discussed the same with the dictator. I agree with the dictator's note ,documented as a scribe. Any additional findings or plans will be noted.
[2018-07-06] MEDS: FUROSEMIDE 10 MG/ML 4 ML VIAL IV SCH ×2 (15:48→23:46)
[2018-07-06 17:29] LABS: Glucose,Whole Blood 299 mg/dL (75-99)
[2018-07-06 20:40] LABS: Glucose,Whole Blood 221 mg/dL (75-99)
[2018-07-06] MEDS: ATORVASTATIN 80 MG TAB PO SCH (20:52)
[2018-07-07 05:15] LABS: Anion Gap 9 mmol/L; Blood Urea Nitrogen 20 mg/dL (9-20); Calcium 9.3 mg/dL (8.4-10.2); Carbon Dioxide 29 mmol/L (22-30); Chloride 100 mmol/L (98-107); Glucose 234 mg/dL (74-99); Magnesium 1.8 mg/dL (1.6-2.3); Potassium 4.1 mmol/L (3.5-5.1); Sodium 138 mmol/L (137-145)
[2018-07-07 05:28] LABS: Basophils # (A) 0.1 k/uL (0-0.2); Basophils % (A) 1 %; Eosinophils # (A) 0.1 k/uL (0-0.7); Eosinophils % (A) 2 %; HCT 38.8 % (39.0-53.0); HGB 12.2 gm/dL (13.0-17.5); Hypochromasia Marked; Lymphocytes # (A) 1.1 k/uL (1.0-4.8); Lymphocytes % (A) 14 %; MCHC 31.4 g/dL (31.0-37.0); Mean Platelet Volume 7.1; Monocytes # (A) 0.6 k/uL (0-1.0); Monocytes % (A) 8 %; Neutrophils # (A) 5.6 k/uL (1.3-7.7); Neutrophils % (A) 74 %; Platelet Count 250 k/uL (150-450); Poikilocytosis Slight; RBC 4.51 m/uL (4.30-5.90); RDW 14.7 % (11.5-15.5); WBC 7.6 k/uL (3.8-10.6)
[2018-07-07] MEDS: MAGNESIUM SULFATE-D5W PMX 1 GM in DEXTROSE/WATER 1 100ML.BAG IVPB SCH ×2 (06:34→09:44)
[2018-07-07] MEDS: INSULIN ASPART (NovoLOG) 100 UNIT/ML VIAL SQ SCH ×4 (06:37→21:34)
[2018-07-07 06:38] LABS: Glucose,Whole Blood 216 mg/dL (75-99)
--- NOTE | 2018-07-07 08:53 | XR ---
EXAMINATION TYPE: XR chest 1V portable DATE OF EXAM: 07/07/2018 COMPARISON: 07/06/2018 HISTORY: Shortness of breath TECHNIQUE: Single frontal view of the chest is obtained. FINDINGS: Heart is enlarged and is postoperative change. Cardiac device noted. Diffuse interstitial pattern. Diffuse osteopenia. Arthropathy of the shoulders. No pneumothorax. IMPRESSION: COPD with cardiomegaly correlate for CHF stable in appearance. Otherwise consider interst itial pneumonitis.
[2018-07-07] MEDS: CARVEDILOL 6.25 MG TAB PO SCH ×2 (08:54→17:02)
[2018-07-07] MEDS: ceFAZolin (PMX-bag) 1,000 MG in DEXTROSE/WATER 1 50ML.BAG IVPB SCH ×2 (08:54→16:01)
[2018-07-07] MEDS: FUROSEMIDE 10 MG/ML 4 ML VIAL IV SCH ×2 (08:54→16:02)
[2018-07-07] MEDS: ASPIRIN 81 MG PO SCH (08:55)
[2018-07-07] MEDS: TICAGRELOR 90 MG TAB PO SCH ×2 (08:55→21:27)
[2018-07-07] MEDS: SPIRONOLACTONE 25 MG TAB PO SCH (08:55)
[2018-07-07] MEDS: HYDROcodone/APAP 10-325MG 1 EACH TAB PO PRN ×2 (08:55→17:23)
[2018-07-07] MEDS: LOSARTAN 50 MG TAB PO SCH (08:55)
--- NOTE | 2018-07-07 11:07 | PN ---
PROGRESS NOTE Darien is a 58-year-old gentleman who was admitted to hospital with non ST-segment elevation [place]. Underwent cardiac catheterization and angioplasty of [place] circumflex coronary artery. Subsequently developed acute pulmonary edema and had to be transferred to ICU. This morning he is feeling better, looking better. Denies chest pain or difficulty in breathing. Has mild leg edema. PHYSICAL EXAMINATION: On exam, heart rate is 86 beats per minute. Blood pressure is 119/76. Respiratory rate is 18. Chest exam reveals good air entry bilaterally. Heart exam reveals first and second heart sounds. No gallop. No murmur. Examination of the extremities reveals that the pulses are palpable. There is mild edema. LABS: Labs show a creatinine of 0.6, potassium is 4.1, hemoglobin is 12.2. ASSESSMENT: 1. Acute exacerbation of chronic systolic heart failure. 2. Coronary artery disease, status post angioplasty of [place] circumflex coronary artery. PLAN: Patient is on aspirin, Lipitor, Coreg, Lasix IV q.8, Imdur, Cozaar and Aldactone along with Brilinta. I am going to leave him on IV Lasix for today and hopefully we can discharge him home tomorrow. The patient was on Coumadin for his atrial fibrillation. We will resume it now. MMODL / IJN: [id number] /
--- NOTE | 2018-07-07 11:24 | P.PN ---
Subjective Progress Note Date: 07/07/18 Principal diagnosis: Acute hypoxic respiratory failure secondary to systolic dysfunction and congestive heart failure. This is a 58-year-old white male patient of Dr. Olivera with past medical history of coronary artery disease, with history of single vessel bypass grafting GODINEZ to LAD in 2017, and previous stenting, COPD, former smoker, ischemic cardiomyopathy with the severely impaired left ventricular systolic function with an EF between 20-25%, AICD placement, diabetes mellitus type 2, hypertension, hyperlipidemia, previous episode of myocardial infarction, sleep apnea on CPAP therapy, depression, who came into the hospital on 06/30/2018 with complaints of increased dyspnea, increased generalized weakness, and lightheadedness. EKG showed normal sinus rhythm with evidence of lateral wall infarct of undetermined age. Troponins were elevated at 0.089, and 0.187, and at 0.272. ProBNP was elevated at 4310, white blood cell count was within normal limits at 9.1, hemoglobin 13.1, INR was supratherapeutic at 4.8 patient is on Coumadin, likely for thromboembolic protection in view of cardiomyopathy. Patient was being treated for non-ST elevated IL. Initial chest x-ray on 06/30/2018 showed new mild pulmonary vascular congestion, interstitial edema and trace pleural effusions. He was started on IV Lasix, Imdur, losartan and Aldactone. He was diuresing. Today, 07/05/2018, patient underwent cardiac catheterization which revealed calcified left main coronary artery which was free of significant stenosis, 80% lesion in the LAD in the proximal part and total occlusion in its midportion, mid circumflex coronary artery was stented before and the stent was patent, the ostial portion of the circumflex showed a 70-80% stenosis in the artery was heavily calcified and eccentric. There was diffuse disease involving the right coronary artery and at her to be chronically occluded. GODINEZ to LAD graft was patent. Patient had his circumflex artery stented, and following the procedure but experiencing acute shortness of breath, and is placed on a percent nonrebreather, he was given a dose of IV Lasix, and stat chest x-ray was obtained, and showed cardiomegaly, COPD, and interstitial venous congestion, pulmonary edema. He was transferred to the intensive care unit for further monitoring. He was started on Lasix drip at 10 mg per hour, nitroglycerin drip at 15 mics per minute. He is starting to diurese, he is on heparin drip weight-based protocol. He is breathing easier, his FiO2 is down to 50%, lung sounds are diminished. The blood gas was obtained, and showed pO2 of 195, pCO2 of 36, pH of 7.37, this was done and FiO2 of 100%. Patient was reevaluated today on 07/06/2018, remains in the ICU, he was on Lasix drip overnight, and made a significant amount of urine output. Clinically he feels much better, breathing a lot easier, however his chest x-ray continues to show evidence of interstitial edema bilaterally. He was seen by cardiology judy song today, and he was switched from Lasix drip to Lasix IV push. Labs today showed relatively normal CBC, hemoglobin is 11.8, his electrolytes are relatively normal except for slightly low potassium of 3.4 being corrected. Renal profile is normal bicarb is normal. All medications were reviewed, presently on Lasix at 40 mg IV push every 8 hours, he is also on multiple cardiac meds as listed. Reevaluated today on 07/07/2018, remains in the ICU, off Lasix drip, continues to have good urine output, clinically feeling much better, breathing a lot easier, and a chest x-ray continues to show steady improvement in his congestive heart failure. Patient is on few liters nasal cannula, he is resting comfortably sitting at a bedside chair. CBC is relatively normal index was are normal renal profile is normal. Chest x-ray shows cardiomegaly and mild CHF changes. Patient was seen by cardiology, and planning to transfer the patient to a monitor bed on selective/cardiac floor. Objective - Vital Signs Vital signs: Vital Signs Temp 98.1 F 07/07/18 08:00 Pulse 86 07/07/18 10:00 Resp 22 07/07/18 10:00 BP 119/76 07/07/18 10:00 Pulse Ox 93 L 07/07/18 10:00 Intake & Output 07/06/18 07/07/18 07/07/18 18:59 06:59 18:59 Intake Total 1201.25 740 Output Total 1630 1380 475 Balance -428.75 -1380 265 Weight 88 kg Intake: IV 143 260 0.9 140 10 Magnesium Sulfate-D5w Pmx 100 1 gm In Dextrose/Water 1 100ml.bag @ 100 mls/hr IVPB Q1H [facility] Rx#: [id number] Magnesium Sulfate-D5w Pmx 100 1 gm In Dextrose/Water 1 100ml.bag @ 100 mls/hr IVPB Q1H [facility] Rx#: [id number] Pressure bag 0.9 3 ceFAZolin (PMX-bag) 1,000 50 mg In Dextrose/Water 1 50ml.bag @ 100 mls/hr IVPB Q8HR [facility] Rx#: [id number] Intake, IV Titration 308.25 Amount Magnesium Sulfate-D5w Pmx 100 1 gm In Dextrose/Water 1 100ml.bag @ 100 mls/hr IVPB Q1H [facility] Rx#: [id number] Nitroglycerin-D5w Pmx 50 58.25 mg In Dextrose/Water 1 250ml.bag @ 10 MCG/MIN 3 mls/hr IV .Q24H [facility] Rx#: [id number] ceFAZolin (PMX-bag) 1,000 150 mg In Dextrose/Water 1 50ml.bag @ 100 mls/hr IVPB Q8HR [facility] Rx#: [id number] Oral 750 480 Output: Urine 1630 1380 475 Other: Voiding Method Urinal Urinal Indwelling Catheter # Bowel Movements 1 ABP, PAP, CO, CI - Last Documented Arterial Blood Pressure 91/91 - Exam GENERAL EXAM: Alert, pleasant, 58-year-old white male on 2 liters nasal cannula. O2 saturation is in the low 90s. HEAD: Normocephalic/atraumatic. HEENT: PERRLA, EOMI, moist mucous membranes, no icterus, no JVD, no stridor, no neck masses, no thyromegaly. CHEST: No chest wall deformity. Symmetrical expansion. LUNGS: Equal air entry with diminished breath sounds bilaterally, minimal fine crackles at the bases bilaterally. CVS: Regular rate and rhythm, normal S1 and S2, no gallops, 2/6 systolic murmur at the apex. ABDOMEN: Soft, nontender. No hepatosplenomegaly, normal bowel sounds, no guarding or rigidity. EXTREMITIES: No clubbing, trace of bipedal edema no cyanosis, 2+ pulses and upper and lower extremities. MUSCULOSKELETAL: Muscle strength and tone normal. SPINE: No scoliosis or deformity SKIN: No rashes CENTRAL NERVOUS SYSTEM: Alert and oriented -3. No focal deficits, tone is normal in all 4 extremities. PSYCHIATRIC: Normal mood, affect and mental status examination. - Labs CBC & Chem 7: 07/07/18 04:23 07/07/18 04:23 Labs: Abnormal Lab Results - Last 24 Hours (Table) 07/06/18 07/06/18 07/06/18 Range/Units 11:28 17:25 20:25 Hgb (13.0-17.5) gm/dL Hct (39.0-53.0) % Creatinine (0.66-1.25) mg/dL Glucose (74-99) mg/dL POC Glucose (mg/dL) 253 H 299 H 221 H (75-99) mg/dL 07/07/18 07/07/18 07/07/18 Range/Units 04:23 04:23 06:34 Hgb 12.2 L (13.0-17.5) gm/dL Hct 38.8 L (39.0-53.0) % Creatinine 0.60 L (0.66-1.25) mg/dL Glucose 234 H (74-99) mg/dL POC Glucose (mg/dL) 216 H (75-99) mg/dL Assessment and Plan Assessment: #1. Acute hypoxemic respiratory failure secondary to acute exacerbation of congestive heart failure with systolic dysfunction, known history of ischemic cardiomyopathy #2. Coronary artery disease, underwent cardiac catheterization today with stenting of the circumflex coronary artery. GODINEZ to LAD graft was patent, and there was chronically occluded RCA. History of single-vessel bypass GODINEZ to LAD in 2017 #3. Acute non-ST elevated myocardial infarction #4. Ischemic cardiomyopathy, with a severely impaired left ventricular systolic function with an EF of 20-25%, status post AICD placement #5. Diabetes mellitus #6. Moderate severe COPD, with FEV1 of 63% of predicted, consistent with stage II COPD, not oxygen or steroid dependent at baseline #7. Ex-smoker, quit in 2017 #8. Obstructive sleep apnea, on CPAP therapy #9. Hypertension, hyperlipidemia #10. Depression Recommendation: Discussed and reviewed with the patient is chest x-ray findings, discussed and reviewed his labs, explained to him that it is possibly that we will transferred today to a monitor bed on selective, in the meantime we will continue on his cardiac meds and diuretics including Lasix, nitroglycerin, Coreg, statins, heparin, and we'll continue his bronchodilators. Possibly discharge planning in the next 24-48 hours. Patient will be cleared likely by cardiology to transfer out of the ICU to a monitor bed. Overall prognosis remains relatively guarded considering his LV dysfunction. Time with Patient: Less than 30
[2018-07-07] MEDS: ISOSORBIDE MONONITRATE ER 30 MG TAB.ER.24H PO SCH (11:52)
[2018-07-07 12:18] LABS: Glucose,Whole Blood 242 mg/dL (75-99)
[2018-07-07 16:53] LABS: Glucose,Whole Blood 209 mg/dL (75-99)
[2018-07-07] MEDS ORDERED: WARFARIN 5 MG TAB PO SCH (18:00)
--- NOTE | 2018-07-07 18:17 | P.PN ---
Subjective Progress Note Date: 07/07/18 This is a 58-year-old gentleman admitted with acute HI, and multiple other medical issues. Yesterday underwent cardiac catheterization with angioplasty, reporting severe 3 vessel CAD with patent GODINEZ to the LAD, 70-80% ostial stenosis of the circumflex ,stent to the circumflex. Post cardiac cath develope d flash pulmonary edema, received Lasix IV push, placed on a nonrebreather transferred to ICU. Maintained on Lasix and nitroglycerin drips throughout the night. Lasix drip converted to Lasix IV push this morning. Nitroglycerin drip currently being weaned off. Continues on heparin drip. Significant clinical improvement, feels better. Maintaining O2 sats in the high 90s on 4 L nasal cannula. Chest x-ray reporting COPD, cardiomegaly, stable pulmonary edema, possible interstitial pneumonitis Sheath to be pulled this morning, as per cardiology. Receiving supplements for potassium 3.4. Telemetry sinus rhythm. Denies chest pain, palpitations or increasing shortness of breath.] 07/07/2018 diuresing well on Lasix IV push with 24-hour I&O reflecting a negative fluid balance. Chest x-ray continues to show improvement. Maintaining O2 sats in the mid 90s on room air. Delined, Walters catheter were discontinued. Blood sugars mildly elevated, glipizide resumed. Awaiting bed on selective unit. Coumadin resumed. Objective - Vital Signs Vital signs: Vital Signs Temp 98.1 F 07/07/18 04:00 Pulse 76 07/07/18 07:00 Resp 14 07/07/18 07:00 BP 118/79 07/07/18 07:00 Pulse Ox 93 L 07/07/18 07:00 Intake & Output 07/06/18 07/07/18 07/07/18 18:59 06:59 18:59 Intake Total 1201.25 100 Output Total 1630 1380 50 Balance -428.75 -1380 50 Weight 88 kg Intake: IV 143 100 0.9 140 Magnesium Sulfate-D5w Pmx 100 1 gm In Dextrose/Water 1 100ml.bag @ 100 mls/hr IVPB Q1H [facility] Rx#: [id number] Pressure bag 0.9 3 Intake, IV Titration 308.25 Amount Magnesium Sulfate-D5w Pmx 100 1 gm In Dextrose/Water 1 100ml.bag @ 100 mls/hr IVPB Q1H [facility] Rx#: [id number] Nitroglycerin-D5w Pmx 50 58.25 mg In Dextrose/Water 1 250ml.bag @ 10 MCG/MIN 3 mls/hr IV .Q24H [facility] Rx#: [id number] ceFAZolin (PMX-bag) 1,000 150 mg In Dextrose/Water 1 50ml.bag @ 100 mls/hr IVPB Q8HR [facility] Rx#: [id number] Oral 750 Output: Urine 1630 1380 50 Other: Voiding Method Urinal Urinal # Bowel Movements 1 ABP, PAP, CO, CI - Last Documented Arterial Blood Pressure 91/91 - Exam PHYSICAL EXAM: VITAL SIGNS: As above GENERAL: Sitting up in chair, no acute distress HEENT: Conjunctivae normal. eyes normal. Oral mucosa moist NECK: No JVD. No thyroid enlargement. No LNs CARDIOVASCULAR: S1, S2 muffled. Systolic murmur, no rubs, no gallops RESPIRATION: Breath sounds diminished in the bases. Fine bibasilar crackles, No rhonchi, no wheezing ABDOMEN: Soft, nontender . No guarding. no masses palpable.no guarding, no rigidity.Bowel sounds heard. LEGS: trace edema. no clubbing, no cyanosis. PSYCHIATRY: Alert and oriented -3, mood and affect normal. NERVOUS SYSTEM: Cranial N 2-12 grossly normal. Moves all 4 limbs. Diffuse weakness, No focal deficits. Skin: no lesions, no rash. - Labs CBC & Chem 7: 07/07/18 04:23 07/07/18 04:23 Labs: Abnormal Lab Results - Last 24 Hours (Table) 07/06/18 07/06/18 07/06/18 Range/Units 11:28 17:25 20:25 Hgb (13.0-17.5) gm/dL Hct (39.0-53.0) % Creatinine (0.66-1.25) mg/dL Glucose (74-99) mg/dL POC Glucose (mg/dL) 253 H 299 H 221 H (75-99) mg/dL 07/07/18 07/07/18 07/07/18 Range/Units 04:23 04:23 06:34 Hgb 12.2 L (13.0-17.5) gm/dL Hct 38.8 L (39.0-53.0) % Creatinine 0.60 L (0.66-1.25) mg/dL Glucose 234 H (74-99) mg/dL POC Glucose (mg/dL) 216 H (75-99) mg/dL Assessment and Plan Assessment: -Acute NSTEMI, status post cardiac cath reporting severe three-vessel CAD with patent GODINEZ to the LAD, 70-80% ostial stenosis in the circumflex, circumflex stent. -Acute hypoxic respiratory failure secondary to acute CHF systolic dysfunction, EF 20-25% -Ischemic Cardiomyopathy, status post AICD placement -Diabetes mellitus -COPD -Obstructive sleep apnea, on CPAP -History of nicotine dependence -Hypertension -Hyperlipidemia -Depression -Hypokalemia Plan: Continue on current medication regime ,monitoring and symptomatic treatment. Awaiting transfer to select a candidate. Maintain diuretics, nebulized bronchodilators, Coreg, Aldactone, Brilenta, statin. Cardiology discussing potential clearance for discharge in 24 hours. Increase ambulation as tolerated. Prognosis guarded given multiple complex medical issues. The impression and plan of care has been dictated as directed. : I performed a history and examination of this patient, discussed the same with the dictator. I agree with the dictator's note ,documented as a scribe. Any additional findings or plans will be noted.
[2018-07-07] MEDS: ATORVASTATIN 80 MG TAB PO SCH (21:26)
[2018-07-07 21:40] LABS: Glucose,Whole Blood 228 mg/dL (75-99)
[2018-07-08] MEDS: HYDROcodone/APAP 10-325MG 1 EACH TAB PO PRN ×2 (00:17→08:36)
[2018-07-08] MEDS: FUROSEMIDE 10 MG/ML 4 ML VIAL IV SCH ×2 (00:20→08:30)
[2018-07-08] MEDS: ceFAZolin (PMX-bag) 1,000 MG in DEXTROSE/WATER 1 50ML.BAG IVPB SCH ×2 (00:20→08:29)
[2018-07-08 05:52] LABS: Basophils # (A) 0.1 k/uL (0-0.2); Basophils % (A) 1 %; Eosinophils # (A) 0.3 k/uL (0-0.7); Eosinophils % (A) 3 %; HGB 12.2 gm/dL (13.0-17.5); Hypochromasia Marked; Lymphocytes # (A) 1.6 k/uL (1.0-4.8); Lymphocytes % (A) 20 %; MCH 25.3 pg (25.0-35.0); MCHC 29.8 g/dL (31.0-37.0); Mean Platelet Volume 7.1; Monocytes # (A) 0.5 k/uL (0-1.0); Monocytes % (A) 7 %; Neutrophils # (A) 5.1 k/uL (1.3-7.7); Neutrophils % (A) 67 %; Platelet Count 263 k/uL (150-450); Poikilocytosis Slight; RBC 4.83 m/uL (4.30-5.90); RDW 14.5 % (11.5-15.5); WBC 7.6 k/uL (3.8-10.6)
[2018-07-08 06:04] LABS: INR 1.1 (<1.2); Prothrombin Time 11.6 sec (9.0-12.0)
[2018-07-08 06:28] LABS: Anion Gap 8 mmol/L; Blood Urea Nitrogen 20 mg/dL (9-20); Calcium 9.3 mg/dL (8.4-10.2); Carbon Dioxide 31 mmol/L (22-30); Chloride 100 mmol/L (98-107); Glucose 87 mg/dL (74-99); Magnesium 1.9 mg/dL (1.6-2.3); Sodium 139 mmol/L (137-145)
[2018-07-08] MEDS: INSULIN ASPART (NovoLOG) 100 UNIT/ML VIAL SQ SCH ×2 (06:53→11:52)
[2018-07-08 07:03] LABS: Glucose,Whole Blood 105 mg/dL (75-99)
[2018-07-08] MEDS: CARVEDILOL 6.25 MG TAB PO SCH (07:09)
--- NOTE | 2018-07-08 07:20 | ECHOF ---
Referral Reason:assess cardiac status MEASUREMENTS -------- HEIGHT: 180.3 cm WEIGHT: 88.0 kg BP: 105/66 RVIDd: 3.9 cm (< 3.3) IVSd: 1.5 cm (0.6 - 1.1) LVIDd: 5.5 cm (3.9 - 5.3) LVPWd: 1.5 cm (0.6 - 1.1) IVSs: 1.6 cm LVIDs: 4.5 cm LVPWs: 1.8 cm LA Diam: 4.6 cm (2.7 - 3.8) LAESV Index (A-L): 44.53 ml/m Ao Diam: 3.1 cm (2.0 - 3.7) AV Cusp: 1.5 cm (1.5 - 2.6) MV EXCURSION: 17.701 mm (> 18.000) MV EF SLOPE: 69 mm/s (70 - 150) EPSS: 1.9 cm RAP: 15.00 mmHg RVSP: 56.81 mmHg FINDINGS -------- AICD This was a technically difficult study with suboptimal views. The left ventricular size is normal. There is moderate concentric left ventricular hypertrophy. O verall left ventricular systolic function is moderate-severely impaired with, an EF between 30 - 35 % . Mid anteroseptal LV wall motion is hypokinetic. Apical anterior LV wall motion is hypokinetic. Apical septum LV wall motion is hypokinetic. The right ventricle is moderately enlarged. LA is severely dilated >40 ml/m2 The right atrium is normal in size. 3 ml of Lumason was utilized for enhancement of images. There is mild aortic valve sclerosis. The mitral valve leaflets are mildly thickened. Mild mitral annular calcification present. Modera te mitral regurgitation is present. Mild tricuspid regurgitation present. There is severe pulmonary hypertension. The right ventricul ar systolic pressure, as measured by Doppler, is 56.81mmHg. Trace/mild (physiologic) pulmonic regurgitation. The aortic root size is normal. The inferior vena cava is dilated with no significant inspiratory collapse which is consistent estima jacoby right atrial pressure of >20 mmHg. There is no pericardial effusion. CONCLUSIONS -------- 1. AICD 2. This was a technically difficult study with suboptimal views. 3. The left ventricular size is normal. 4. There is moderate concentric left ventricular hypertrophy. 5. Mid anteroseptal LV wall motion is hypokinetic. 6. Apical anterior LV wall motion is hypokinetic. 7. Apical septum LV wall motion is hypokinetic. 8. The right ventricle is moderately enlarged. 9. LA is severely dilated >40 ml/m2 10. The right atrium is normal in size. 11. 3 ml of Lumason was utilized for enhancement of images. 12. There is mild aortic valve sclerosis. 13. The mitral valve leaflets are mildly thickened. 14. Mild mitral annular calcification present. 15. Moderate mitral regurgitation is present. 16. Mild tricuspid regurgitation present. 17. There is severe pulmonary hypertension. 18. The right ventricular systolic pressure, as measured by Doppler, is 56.81mmHg. 19. Trace/mild (physiologic) pulmonic regurgitation. 20. The aortic root size is normal. 21. The inferior vena cava is dilated with no significant inspiratory collapse which is consistent es timated right atrial pressure of >20 mmHg. 22. There is no pericardial effusion. LAYOUT MECHANIC: Blessing Smith RDCS
--- NOTE | 2018-07-08 07:31 | XR ---
EXAMINATION TYPE: XR chest 1V portable DATE OF EXAM: 07/08/2018 COMPARISON: 07/07/2018 HISTORY: Shortness of breath TECHNIQUE: Single frontal view of the chest is obtained. FINDINGS: Heart is enlarged and is postoperative change and cardiac device. Interstitial pattern see n. Arthropathy of the shoulders. No pneumothorax. Hyperinflation suggests COPD. IMPRESSION: Cardiomegaly correlate for mild central venous congestion.
[2018-07-08] MEDS: LOSARTAN 50 MG TAB PO SCH (08:30)
[2018-07-08] MEDS: SPIRONOLACTONE 25 MG TAB PO SCH (08:30)
[2018-07-08] MEDS: TICAGRELOR 90 MG TAB PO SCH (08:30)
[2018-07-08] MEDS: ASPIRIN 81 MG PO SCH (08:31)
[2018-07-08] MEDS: ISOSORBIDE MONONITRATE ER 30 MG TAB.ER.24H PO SCH (10:58)
--- NOTE | 2018-07-08 11:50 | P.PN ---
Subjective Progress Note Date: 07/08/18 Principal diagnosis: Acute hypoxic respiratory failure secondary to systolic dysfunction and congestive heart failure. This is a 58-year-old white male patient of Dr. Olivera with past medical history of coronary artery disease, with history of single vessel bypass grafting GODINEZ to LAD in 2017, and previous stenting, COPD, former smoker, ischemic cardiomyopathy with the severely impaired left ventricular systolic function with an EF between 20-25%, AICD placement, diabetes mellitus type 2, hypertension, hyperlipidemia, previous episode of myocardial infarction, sleep apnea on CPAP therapy, depression, who came into the hospital on 06/30/2018 with complaints of increased dyspnea, increased generalized weakness, and lightheadedness. EKG showed normal sinus rhythm with evidence of lateral wall infarct of undetermined age. Troponins were elevated at 0.089, and 0.187, and at 0.272. ProBNP was elevated at 4310, white blood cell count was within normal limits at 9.1, hemoglobin 13.1, INR was supratherapeutic at 4.8 patient is on Coumadin, likely for thromboembolic protection in view of cardiomyopathy. Patient was being treated for non-ST elevated MN. Initial chest x-ray on 06/30/2018 showed new mild pulmonary vascular congestion, interstitial edema and trace pleural effusions. He was started on IV Lasix, Imdur, losartan and Aldactone. He was diuresing. Today, 07/05/2018, patient underwent cardiac catheterization which revealed calcified left main coronary artery which was free of significant stenosis, 80% lesion in the LAD in the proximal part and total occlusion in its midportion, mid circumflex coronary artery was stented before and the stent was patent, the ostial portion of the circumflex showed a 70-80% stenosis in the artery was heavily calcified and eccentric. There was diffuse disease involving the right coronary artery and at her to be chronically occluded. GODINEZ to LAD graft was patent. Patient had his circumflex artery stented, and following the procedure but experiencing acute shortness of breath, and is placed on a percent nonrebreather, he was given a dose of IV Lasix, and stat chest x-ray was obtained, and showed cardiomegaly, COPD, and interstitial venous congestion, pulmonary edema. He was transferred to the intensive care unit for further monitoring. He was started on Lasix drip at 10 mg per hour, nitroglycerin drip at 15 mics per minute. He is starting to diurese, he is on heparin drip weight-based protocol. He is breathing easier, his FiO2 is down to 50%, lung sounds are diminished. The blood gas was obtained, and showed pO2 of 195, pCO2 of 36, pH of 7.37, this was done and FiO2 of 100%. Patient was reevaluated today on 07/06/2018, remains in the ICU, he was on Lasix drip overnight, and made a significant amount of urine output. Clinically he feels much better, breathing a lot easier, however his chest x-ray continues to show evidence of interstitial edema bilaterally. He was seen by cardiology judy song today, and he was switched from Lasix drip to Lasix IV push. Labs today showed relatively normal CBC, hemoglobin is 11.8, his electrolytes are relatively normal except for slightly low potassium of 3.4 being corrected. Renal profile is normal bicarb is normal. All medications were reviewed, presently on Lasix at 40 mg IV push every 8 hours, he is also on multiple cardiac meds as listed. Reevaluated today on 07/07/2018, remains in the ICU, off Lasix drip, continues to have good urine output, clinically feeling much better, breathing a lot easier, and a chest x-ray continues to show steady improvement in his congestive heart failure. Patient is on few liters nasal cannula, he is resting comfortably sitting at a bedside chair. CBC is relatively normal index was are normal renal profile is normal. Chest x-ray shows cardiomegaly and mild CHF changes. Patient was seen by cardiology, and planning to transfer the patient to a monitor bed on selective/cardiac floor. Patient was reevaluated today on 07/08/2018, he is presently overflow from selective/cardiac floor. Patient is doing great, asymptomatic, asking if he could be discharged home. His chest x-ray showed significant improvement over the last few days, patient denies any shortness of breath, he is presently on room air. His CBC is relatively normal basic metabolic profile is normal renal profile is normal all his meds were reviewed, and I felt at this point that the patient could be considered to be discharged home if cleared by cardiology. Objective - Vital Signs Vital signs: Vital Signs Temp 97.8 F 07/08/18 04:00 Pulse 80 07/08/18 08:00 Resp 18 07/08/18 08:00 BP 112/70 07/08/18 08:00 Pulse Ox 95 07/08/18 08:00 Intake & Output 07/07/18 07/08/18 07/08/18 18:59 06:59 18:59 Intake Total 1420 600 Output Total 1450 275 Balance -30 -275 600 Weight 86.7 kg Intake: IV 320 200 0.9 20 100 Magnesium Sulfate-D5w Pmx 100 1 gm In Dextrose/Water 1 100ml.bag @ 100 mls/hr IVPB Q1H DENIS Rx#: [id number] Magnesium Sulfate-D5w Pmx 100 1 gm In Dextrose/Water 1 100ml.bag @ 100 mls/hr IVPB Q1H DENIS Rx#: [id number] ceFAZolin (PMX-bag) 1,000 100 100 mg In Dextrose/Water 1 50ml.bag @ 100 mls/hr IVPB Q8HR DENIS Rx#: [id number] Oral 1100 400 Output: Urine 1450 275 Other: Voiding Method Urinal Urinal Urinal ABP, PAP, CO, CI - Last Documented Arterial Blood Pressure 91/91 - Exam GENERAL EXAM: Alert, pleasant, 58-year-old white male on 2 liters nasal cannula. O2 saturation is in the low 90s. HEAD: Normocephalic/atraumatic. HEENT: PERRLA, EOMI, moist mucous membranes, no icterus, no JVD, no stridor, no neck masses, no thyromegaly. CHEST: No chest wall deformity. Symmetrical expansion. LUNGS: Equal air entry with diminished breath sounds bilaterally, minimal fine crackles at the bases bilaterally. CVS: Regular rate and rhythm, normal S1 and S2, no gallops, 2/6 systolic murmur at the apex. ABDOMEN: Soft, nontender. No hepatosplenomegaly, normal bowel sounds, no guarding or rigidity. EXTREMITIES: No clubbing, trace of bipedal edema no cyanosis, 2+ pulses and upper and lower extremities. MUSCULOSKELETAL: Muscle strength and tone normal. SPINE: No scoliosis or deformity SKIN: No rashes CENTRAL NERVOUS SYSTEM: Alert and oriented -3. No focal deficits, tone is normal in all 4 extremities. PSYCHIATRIC: Normal mood, affect and mental status examination. - Labs CBC & Chem 7: 07/08/18 04:32 07/08/18 04:32 Labs: Abnormal Lab Results - Last 24 Hours (Table) 07/07/18 07/07/18 07/07/18 Range/Units 12:16 16:50 21:26 Hgb (13.0-17.5) gm/dL MCHC (31.0-37.0) g/dL Carbon Dioxide (22-30) mmol/L Creatinine (0.66-1.25) mg/dL POC Glucose (mg/dL) 242 H 209 H 228 H (75-99) mg/dL 07/08/18 07/08/18 07/08/18 Range/Units 04:32 04:32 06:51 Hgb 12.2 L (13.0-17.5) gm/dL MCHC 29.8 L (31.0-37.0) g/dL Carbon Dioxide 31 H (22-30) mmol/L Creatinine 0.63 L (0.66-1.25) mg/dL POC Glucose (mg/dL) 105 H (75-99) mg/dL Assessment and Plan Assessment: #1. Acute hypoxemic respiratory failure secondary to acute exacerbation of congestive heart failure with systolic dysfunction, known history of ischemic cardiomyopathy #2. Coronary artery disease, underwent cardiac catheterization today with stenting of the circumflex coronary artery. GODINEZ to LAD graft was patent, and there was chronically occluded RCA. History of single-vessel bypass GODINEZ to LAD in 2017 #3. Acute non-ST elevated myocardial infarction #4. Ischemic cardiomyopathy, with a severely impaired left ventricular systolic function with an EF of 20-25%, status post AICD placement #5. Diabetes mellitus #6. Moderate severe COPD, with FEV1 of 63% of predicted, consistent with stage II COPD, not oxygen or steroid dependent at baseline #7. Ex-smoker, quit in 2017 #8. Obstructive sleep apnea, on CPAP therapy #9. Hypertension, hyperlipidemia #10. Depression Recommendation: Considering the significant improvement noted over the last few days, I believe the patient could be switched to his usual oral meds including oral Lasix, consider discharging the patient home today, and follow-up on outpatient basis. Will remain on his cardiac meds including Lasix nitroglycerin Coreg statins and he will continue his bronchodilators on outpatient basis as given previously. Follow-up with Dr. Burroughs in few days or next week. Cindy clark will be seen by cardiology today, and he will likely be cleared for discharge. Time with Patient: Less than 30
[2018-07-08 12:02] VITALS: BP 106/80; PULSE 72; RESP 16; TEMP 98.4
[2018-07-08 12:06] LABS: Glucose,Whole Blood 156 mg/dL (75-99)
[2018-07-08] MEDS ORDERED: WARFARIN 2.5 MG TAB PO SCH (18:00)
--- NOTE | 2018-07-08 18:47 | PN ---
PROGRESS NOTE Darien is feeling much better today and is eager to go home. He is on IV Lasix which I am going to convert to p.o. Denies chest pain or difficulty in breathing. Has leg edema which is improving. CURRENT MEDICATIONS: Include Brilinta, aspirin, Coumadin, Coreg, glipizide, Lasix, Glucotrol, insulin, Imdur, Cozaar. On exam, he is comfortable at rest. Vital signs are stable. Chest exam reveals good air entry bilaterally. Heart exam reveals first and second heart sounds. No gallop. Abdomen is soft. Exam of extremities reveals bilateral pitting edema. His lab show a hemoglobin of 12.2, potassium is 4, creatinine is 0.6. ASSESSMENT: 1. Non ST-segment elevation myocardial infarction. 2. Ischemic cardiomyopathy with congestive heart failure. 3. Ventricular tachycardia. 4. Chronic atrial fibrillation. PLAN: Patient will continue with the current medications. Stable for discharge. Follow up with me in a week's time. MMODL / IJN: [id number] /
--- NOTE | 2018-07-08 18:48 | P.DS ---
Providers Date of admission: 06/30/18 14:31 Expected date of discharge: 07/08/18 Attending physician: Mike Olivera Consults: 06/30/18 14:31 Consult Physician Routine Consulting Provider: Estevan José Consult Reason/Comments: CHF Do you want consulting provider notified?: Yes 07/05/18 10:04 Consult Physician Routine Consulting Provider: [facility] Consult Reason/Comments: Post Interventional patient Do you want consulting provider notified?: Already Contacted 07/05/18 15:33 Consult Physician Routine Consulting Provider: Monae Gallegos Consult Reason/Comments: Respiratory management Do you want consulting provider notified?: Already Contacted Primary care physician: [facility] Course: Final Diagnoses: -Acute NSTEMI, status post cardiac cath reporting severe three-vessel CAD with patent GODINEZ to the LAD, 70-80% ostial stenosis in the circumflex, circumflex stent. -Acute hypoxic respiratory failure secondary to acute CHF systolic dysfunction, EF 20-25% -Ischemic Cardiomyopathy, status post AICD placement -Diabetes mellitus -COPD -Obstructive sleep apnea, on CPAP -History of nicotine dependence -Hypertension -Hyperlipidemia -Depression Hospital course:This is a 58-year-old gentleman admitted with acute CO, and multiple other medical issues. Yesterday underwent cardiac catheterization with angioplasty, reporting severe 3 vessel CAD with patent GODINEZ to the LAD, 70-80% ostial stenosis of the circumflex ,stent to the circumflex. Post cardiac cath developed flash pulmonary edema, received Lasix IV push, placed on a nonre breather transferred to ICU. Maintained on Lasix and nitroglycerin drips throughout the night. Lasix drip converted to Lasix IV push this morning. Nitroglycerin drip currently being weaned off. Continues on heparin drip. Significant clinical improvement, feels better. Maintaining O2 sats in the high 90s on 4 L nasal cannula. Chest x-ray reporting COPD, cardiomegaly, stable pulmonary edema, possible interstitial pneumonitis Sheath to be pulled this morning, as per cardiology. Receiving supplements for potassium 3.4. Telemetry sinus rhythm. Denies chest pain, palpitations or increasing shortness of breath. 07/07/2018 diuresing well on Lasix IV push with 24-hour I&O reflecting a negative fluid balance. Chest x-ray continues to show improvement. Maintaining O2 sats in the mid 90s on room air. Delined, Walters catheter were discontinued. Blood sugars mildly elevated, glipizide resumed. Awaiting bed on selective unit. Coumadin resumed.Awaiting transfer to selective care unit. Maintain diuretics, nebulized bronchodilators, Coreg, Aldactone, Brilenta, statin. Cardiology discussing potential clearance for discharge in 24 hours. Increase ambulation as tolerated. Prognosis guarded given multiple complex medical issues. 07/08/2018 significant clinical improvement. Cleared by all consults for discharge. patient is being discharged home in a stable condition with guarded prognosis. EXAM: GENERAL: alert & oriented X 3, no acute distress CARDIOVASCULAR: S1, S2 muffled. Systolic murmur, no rubs, no gallops RESPIRATION: Breath sounds diminished in the bases. Fine bibasilar crackles, No rhonchi, no wheezing ABDOMEN: Soft, nontender . No guarding. no masses palpable.no guarding, no rigidity.Bowel sounds heard NERVOUS SYSTEM:No focal deficits. The impression and plan of care has been dictated as directed. : I performed a history and examination of this patient, discussed the same with the dictator. I agree with the dictator's note ,documented as a scribe. Any additional findings or plans will be noted. Time taken: 35 minutes Patient Condition at Discharge: Stable Plan - Discharge Summary Discharge Rx Participant: No New Discharge Prescriptions: New Aspirin 81 mg PO DAILY #30 chew Nitroglycerin Sl Tabs [Nitrostat] 0.4 mg SUBLINGUAL Q5M PRN #100 tab PRN Reason: Chest Pain Furosemide [Lasix] 40 mg PO BID #1 tablet Continue Isosorbide Mononitrate ER [Imdur] 30 mg PO DAILY #30 tab.er.24h Losartan [Cozaar] 50 mg PO DAILY #30 tab Empagliflozin/Linagliptin [Glyxambi 25 mg-5 mg Tablet] 1 tab PO DAILY FLUoxetine HCL 20 mg PO DAILY glipiZIDE [Glucotrol] 10 mg PO BID Spironolactone [Aldactone] 25 mg PO DAILY #90 tablet Carvedilol [Coreg] 6.25 mg PO BID Atorvastatin [Lipitor] 80 mg PO HS Warfarin [Coumadin] 5 mg PO MOWEFR Warfarin [Coumadin] 2.5 mg PO SUTUTHSA Hydrocodone/Acetaminophen [[place] 10-325] 1 tab PO TID PRN PRN Reason: Pain Discharge Medication List Isosorbide Mononitrate ER [Imdur] 30 mg PO DAILY #30 tab.er.24h 02/13/17 [Rx] Losartan [Cozaar] 50 mg PO DAILY #30 tab 02/13/17 [Rx] Empagliflozin/Linagliptin [Glyxambi 25 mg-5 mg Tablet] 1 tab PO DAILY 08/27/17 [History] FLUoxetine HCL 20 mg PO DAILY 08/27/17 [History] glipiZIDE [Glucotrol] 10 mg PO BID 08/27/17 [History] Spironolactone [Aldactone] 25 mg PO DAILY #90 tablet 09/29/17 [Rx] Atorvastatin [Lipitor] 80 mg PO HS 03/12/18 [History] Carvedilol [Coreg] 6.25 mg PO BID 03/12/18 [History] Hydrocodone/Acetaminophen [[place] 10-325] 1 tab PO TID PRN 06/30/18 [History] Warfarin [Coumadin] 2.5 mg PO SUTUTHSA 06/30/18 [History] Warfarin [Coumadin] 5 mg PO MOWEFR 06/30/18 [History] Aspirin 81 mg PO DAILY #30 chew 07/08/18 [Rx] Furosemide [Lasix] 40 mg PO BID #1 tablet 07/08/18 [Rx] Nitroglycerin Sl Tabs [Nitrostat] 0.4 mg SUBLINGUAL Q5M PRN #100 tab 07/08/18 [Rx] Follow up Appointment(s)/Referral(s): Mike Olivera MD [Primary Care Provider] - 07/13/18 1:30 pm [facility], [NON-STAFF] - 1-2 Days Estevan José MD [Family Provider] - 07/15/18 3:15 pm Ambulatory/Diagnostic Orders: Prothrombin Time INR [LAB.AMB] Time Frame: 07/12/18, Location: None Selected Patient Instructions/Handouts: Heart Healthy Diet (DC), Low-Sodium Diet (DC), Fluid Restriction (DC), Coronary Intravascular Stent Placement (DC) Activity/Diet/Wound Care/Special Instructions: Brillenta 90 bid manual RX as per Cardiology Lasix 40mg BID manual RX as per cardiology Diet: Consistent carb, cardiac Activity: Limited until follow up Discharge Disposition: HOME SELF-CARE
== END 2018-07-08 16:06 | disposition home health service (06) | DRG 246 ==
LOC: EC 11:22 → 3SCARD 14:31 → 2SICU 07-05 12:49
PROVIDERS: ADMIT Family Medicine; ATTEND Family Medicine
PROC: 5A09457 Assistance with Respiratory Ventilation, 24-96 Consecutive Hours, Continuous Positive Airway Pressure (ICD-10-PCS; 2018-07-03)
PROC: 4A023N7 Measurement of Cardiac Sampling and Pressure, Left Heart, Percutaneous Approach (ICD-10-PCS; 2018-07-05)
PROC: B2111ZZ Fluoroscopy of Multiple Coronary Arteries using Low Osmolar Contrast (ICD-10-PCS; 2018-07-05)
PROC: B2181ZZ Fluoroscopy of Left Internal Mammary Bypass Graft using Low Osmolar Contrast (ICD-10-PCS; 2018-07-05)
PROC: 027034Z Dilation of Coronary Artery, One Artery with Drug-eluting Intraluminal Device, Percutaneous Approach (ICD-10-PCS; principal; 2018-07-05 08:25)
DX: I21.4 Non-ST elevation (NSTEMI) myocardial infarction (principal); I50.23 Acute on chronic systolic (congestive) heart failure; J96.01 Acute respiratory failure with hypoxia; I47.2 Ventricular tachycardia; D68.9 Coagulation defect, unspecified; E11.51 Type 2 diabetes mellitus with diabetic peripheral angiopathy without gangrene; I95.9 Hypotension, unspecified; I11.0 Hypertensive heart disease with heart failure; I27.20 Pulmonary hypertension, unspecified; I25.5 Ischemic cardiomyopathy; J44.9 Chronic obstructive pulmonary disease, unspecified; I25.10 Atherosclerotic heart disease of native coronary artery without angina pectoris; G47.33 Obstructive sleep apnea (adult) (pediatric); E78.5 Hyperlipidemia, unspecified; N28.9 Disorder of kidney and ureter, unspecified; E87.6 Hypokalemia; I48.2 Chronic atrial fibrillation; F32.9 Major depressive disorder, single episode, unspecified; I25.2 Old myocardial infarction; Z79.899 Other long term (current) drug therapy; Z79.01 Long term (current) use of anticoagulants; Z79.84 Long term (current) use of oral hypoglycemic drugs; Z87.891 Personal history of nicotine dependence; Z95.5 Presence of coronary angioplasty implant and graft; Z95.810 Presence of automatic (implantable) cardiac defibrillator; Z80.9 Family history of malignant neoplasm, unspecified; Z83.3 Family history of diabetes mellitus; Z82.49 Family history of ischemic heart disease and other diseases of the circulatory system
CPT/HCPCS: 36415; 71045; 71046; 80048; 80053; 82272; 82805; 83036; 83735; 83880; 84484; 85025; 85610; 85730; 93005; 93306; 93459; 94760; 96374; 96376; 99285; C1874

== ENCOUNTER 2018-08-28 23:49 | Emergency (ER) | payer OTHER ==
[2018-08-29 01:52] LABS: Anisocytosis Slight; Basophils # (A) 0.1 k/uL (0-0.2); Basophils % (A) 1 %; Eosinophils # (A) 0.2 k/uL (0-0.7); Eosinophils % (A) 2 %; HGB 13.5 gm/dL (13.0-17.5); Hypochromasia Slight; Lymphocytes # (A) 1.4 k/uL (1.0-4.8); Lymphocytes % (A) 16 %; MCH 25.7 pg (25.0-35.0); MCHC 31.5 g/dL (31.0-37.0); MCV 81.6 fL (80.0-100.0); Monocytes # (A) 0.5 k/uL (0-1.0); Monocytes % (A) 6 %; Neutrophils # (A) 6.7 k/uL (1.3-7.7); Neutrophils % (A) 73 %; Platelet Count 228 k/uL (150-450); RBC 5.27 m/uL (4.30-5.90); RDW 16.5 % (11.5-15.5); WBC 9.1 k/uL (3.8-10.6)
[2018-08-29 02:02] LABS: ALT 32 U/L (21-72); AST 25 U/L (17-59); African American GFR (CKD) >90 (>60 ml/min/1.73 sqM); Albumin 4.5 g/dL (3.5-5.0); Alkaline Phosphatase 79 U/L (38-126); Anion Gap 11 mmol/L; Blood Urea Nitrogen 29 mg/dL (9-20); Calcium 9.9 mg/dL (8.4-10.2); Carbon Dioxide 25 mmol/L (22-30); Chloride 104 mmol/L (98-107); Glucose 341 mg/dL (74-99); INR 1.7 (<1.2); Partial Thromboplastin Time 29.5 sec (22.0-30.0); Potassium 4.9 mmol/L (3.5-5.1); Prothrombin Time 16.7 sec (9.0-12.0); Sodium 140 mmol/L (137-145); Total Bilirubin 0.4 mg/dL (0.2-1.3); Total Protein 7.3 g/dL (6.3-8.2)
[2018-08-29 02:03] LABS: Appearance,Urine Clear (Clear); Bilirubin,Urine Negative (Negative); Blood,Urine Large (Negative); Color,Urine Light Red; Glucose,Urine (UA) 4+ (Negative); Ketones,Urine Negative (Negative); Leukocyte Esterase,Urine Negative (Negative); Mucus,Urine Rare /hpf; Nitrite,Urine Negative (Negative); PH, Urine 5.5 (5.0-8.0); Protein,Urine 1+ (Negative); RBC,Urine >182 /hpf (0-5); Specific Gravity,Urine 1.033 (1.001-1.035); Urobilinogen,Urine <2.0 mg/dL (<2.0); WBC,Urine 23 /hpf (0-5)
[2018-08-29] MEDS ORDERED: OXYMETAZOLINE 0.05% NASL SPRAY 1 SPRAY BOTTLE NASAL STA (02:08)
--- NOTE | 2018-08-29 03:37 | ED ---
General Adult HPI - General Source: patient, RN notes reviewed, old records reviewed Mode of arrival: ambulatory Limitations: no limitations <Jet Welsh - Last Filed: 08/29/18 03:34> <Adina Temple - Last Filed: 08/29/18 21:30> - General Chief complaint: ENT Stated complaint: Epistaxis Time Seen by Provider: 08/29/18 01:06 - History of Present Illness Initial comments: 58-year-old male patient presents to ED with chief complaint of nosebleed and hematuria. Right nare location of bleeding Patient states that the nosebleed began approximately 10 PM. Patient reportedly also noted the hematuria approx imately last 2 days. Patient is anticoagulated on warfarin. Patient's past medical history of coronary artery disease, COPD, type 2 diabetes, hypertension, hyperlipidemia. Denies any complaints. Denies any bleeding from gums. Denies abdominal pain, chest pain, nausea vomiting diarrhea. Systemic: Pt denies fatigue, fever/chills, rash. Pt denies weakness, night sweats, weight loss. Neuro: Pt denies headache, visual disturbances, syncope or pre-syncope. HEENT: Pt denies ocular discharge or irritation, otalgia, rhinorrhea, pharyngitis or notable lymphadenopathy. Cardiopulmonary: Pt denies chest pain, SOB, heart palpitations, dyspnea on exertion. Abdominal/GI: Pt denies abdominal pain, n/v/d. : Pt denies dysuria, burning w/ urination, frequency/urgency. Denies new onset urinary or bowel incontinence. MSK: Pt denies myalgia, loss of strength or function in extremities. Neuro: Pt denies new onset weakness, paresthesias. (Jet Welsh) - Related Data Home Medications Medication Instructions Recorded Confirmed Empagliflozin/Linagliptin 1 tab PO DAILY 08/27/17 06/30/18 [Glyxambi 25 mg-5 mg Tablet] FLUoxetine HCL 20 mg PO DAILY 08/27/17 06/30/18 glipiZIDE [Glucotrol] 10 mg PO BID 08/27/17 06/30/18 Atorvastatin [Lipitor] 80 mg PO HS 03/12/18 06/30/18 Carvedilol [Coreg] 6.25 mg PO BID 03/12/18 06/30/18 Hydrocodone/Acetaminophen [[place] 1 tab PO TID PRN 06/30/18 06/30/18 10-325] Warfarin [Coumadin] 2.5 mg PO SUTUTHSA 06/30/18 06/30/18 Warfarin [Coumadin] 5 mg PO MOWEFR 06/30/18 06/30/18 Previous Rx's Medication Instructions Recorded Isosorbide Mononitrate ER [Imdur] 30 mg PO DAILY #30 tab.er.24h 02/13/17 Losartan [Cozaar] 50 mg PO DAILY #30 tab 02/13/17 Spironolactone [Aldactone] 25 mg PO DAILY #90 tablet 09/29/17 Aspirin 81 mg PO DAILY #30 chew 07/08/18 Furosemide [Lasix] 40 mg PO BID #1 tablet 07/08/18 Nitroglycerin Sl Tabs [Nitrostat] 0.4 mg SUBLINGUAL Q5M PRN #100 tab 07/08/18 Allergies Allergy/AdvReac Type Severity Reaction Status Date / Time No Known Allergies Allergy Verified 08/29/18 00:22 Review of Systems ROS Other: All systems not noted in ROS Statement are negative. <Jet Welsh - Last Filed: 08/29/18 03:34> ROS Other: All systems not noted in ROS Statement are negative. <Adina Temple - Last Filed: 08/29/18 21:30> ROS Statement: Those systems with pertinent positive or pertinent negative responses have been documented in the HPI. Past Medical History Past Medical History: Coronary Artery Disease (CAD), COPD, Diabetes Mellitus, Hyperlipidemia, Hypertension, Myocardial Infarction (NV), Musculoskeletal Disorder, Sleep Apnea/CPAP/BIPAP Additional Past Medical History / Comment(s): CMP; HAS AICD. See Dr Dow's H&P. LOWER BACK, HIP PAIN, R/T HX MANUAL LABOR. USES CPAP. HX NV's 1997, 2004, 2010, 2016 Last Myocardial Infarction Date:: 01/2017 History of Any Multi-Drug Resistant Organisms: None Reported Past Surgical History: AICD, Coronary Bypass/CABG, Heart Catheterization With Stent Additional Past Surgical History / Comment(s): 1 VESSEL CABG 01/2017. STENT X3. Hemorrhoidectomy. AICD, [employer], 10/08/17. Past Anesthesia/Blood Transfusion Reactions: No Reported Reaction Date of Last Stent Placement:: 2016 Type of Cardiac Device: AICD Device Placement Date:: 09/28/17 Past Psychological History: Depression Smoking Status: Former smoker Past Alcohol Use History: None Reported Past Drug Use History: Marijuana - Past Family History Father Family Medical History: Cancer Mother Family Medical History: Coronary Artery Disease (CAD), Diabetes Mellitus Brother(s) Family Medical History: Coronary Artery Disease (CAD), Diabetes Mellitus <Jet Welsh - Last Filed: 08/29/18 03:34> General Exam Limitations: no limitations <Jet Welsh - Last Filed: 08/29/18 03:34> - General Exam Comments Initial Comments: Constitutional: NAD, AOX3, Pt has pleasant affect. HEENT: NC/AT, trachea midline, neck supple, no lymphadenopathy. Posterior pharynx non erythematous, without exudates. External ears appear normal, without discharge. Mucous membranes moist. Eyes PERRLA, EOM intact. There is no scleral icterus. No pallor noted. Dried blood noted in right nare, no active bleeding noted. Cardiopulmonary: RRR, no murmurs, rubs or gallops, no JVD noted. Lungs CTAB in anterior and posterior jeffers. No peripheral edema. Abdominal exam: Abdomen soft and non-distended. Abdomen non-tender to palpation in all 4 quadrants. Bowel sounds active in LLQ. No hepatosplenomegaly. No ecchymosis Neuro: CN II-XII grossly intact. No nuchal rigidity. No raccon eyes, no perez sign, no hemotympanum. No cervical spinal tenderness. MSK: No posterior calf tenderness bilaterally, homans sign negative bilaterally. Posterior tibialis and radial pulse +2 bilaterally. Sensation intact in upper and lower extremities. Full active ROM in upper and lower extremities, 5/5 stregnth. (Jet Welsh) Course Vital Signs 08/29/18 08/29/18 00:18 04:17 Temperature 99.1 F 97.5 F L Pulse Rate 109 H 79 Respiratory 20 18 Rate Blood Pressure 124/73 146/86 O2 Sat by Pulse 96 97 Oximetry Medical Decision Making - Lab Data Result diagrams: 08/29/18 01:35 08/29/18 01:35 <Jet Welsh - Last Filed: 08/29/18 03:34> - Lab Data Result diagrams: 08/29/18 01:35 08/29/18 01:35 <Adina Temple - Last Filed: 08/29/18 21:30> - Medical Decision Making 58-year-old male patient presents to ED with chief complaint of nosebleed and hematuria. Right nare location of bleeding Patient states that the nosebleed began approximately 10 PM. Patient reportedly also noted the hematuria approximately last 2 days. Patient is anticoagulated on warfarin. Patient's past medical history of coronary artery disease, COPD, type 2 diabetes, hypertension, hyperlipidemia. Denies any complaints. Denies any bleeding from gums. Denies abdominal pain, chest pain, nausea vomiting diarrhea. Patient vital signs stable at discharge. Physical exam displayed: Dried blood noted in right nare, no active bleeding noted. No other acute pathology. No ecchymoses. Laboratory investigations revealed an impressive CBC. CMP revealed hyperglycemia at 341. [place] INR 1.7. UA revealed +4 glucose, greater than 182 red blood cells. Patient discharged with urology follow-up. Epistaxis was resolved with Afrin, nasal clamp. Patient return if patient worsens. Patient will monitor blood sugar at home. Case discussed with Dr. Temple. (Jet Welsh) I was available for consultation in the emergency department. The history and physical exam were done by the midlevel provider. I was consulted for this patient's care. I reviewed the case with the midlevel provider and based on their presentation of the patient, I agree with the assessment, medical decision making and plan of care as documented. Chart was dictated using [employer] dictation software. Attempts were made to correct any dictation errors however some typographical errors may persist. (Adina Temple) - Lab Data Lab Results 08/29/18 08/29/18 08/29/18 Range/Units 01:35 01:35 01:35 WBC 9.1 (3.8-10.6) k/uL RBC 5.27 (4.30-5.90) m/uL Hgb 13.5 (13.0-17.5) gm/dL Hct 43.0 (39.0-53.0) % MCV 81.6 (80.0-100.0) fL MCH 25.7 (25.0-35.0) pg MCHC 31.5 (31.0-37.0) g/dL RDW 16.5 H (11.5-15.5) % Plt Count 228 (150-450) k/uL Neutrophils % 73 % Lymphocytes % 16 % Monocytes % 6 % Eosinophils % 2 % Basophils % 1 % Neutrophils # 6.7 (1.3-7.7) k/uL Lymphocytes # 1.4 (1.0-4.8) k/uL Monocytes # 0.5 (0-1.0) k/uL Eosinophils # 0.2 (0-0.7) k/uL Basophils # 0.1 (0-0.2) k/uL Hypochromasia Slight Anisocytosis Slight PT 16.7 H (9.0-12.0) sec INR 1.7 H (<1.2) APTT 29.5 (22.0-30.0) sec Sodium 140 (137-145) mmol/L Potassium 4.9 (3.5-5.1) mmol/L Chloride 104 (98-107) mmol/L Carbon Dioxide 25 (22-30) mmol/L Anion Gap 11 mmol/L BUN 29 H (9-20) mg/dL Creatinine 0.87 (0.66-1.25) mg/dL Est GFR (CKD-EPI)AfAm >90 (>60 ml/min/1.73 sqM) Est GFR (CKD-EPI)NonAf >90 (>60 ml/min/1.73 sqM) Glucose 341 H (74-99) mg/dL Calcium 9.9 (8.4-10.2) mg/dL Total Bilirubin 0.4 (0.2-1.3) mg/dL AST 25 (17-59) U/L ALT 32 (21-72) U/L Alkaline Phosphatase 79 (38-126) U/L Total Protein 7.3 (6.3-8.2) g/dL Albumin 4.5 (3.5-5.0) g/dL Urine Color Urine Appearance (Clear) Urine pH (5.0-8.0) Ur Specific [place] (1.001-1.035) Urine Protein (Negative) Urine Glucose (UA) (Negative) Urine Ketones (Negative) Urine Blood (Negative) Urine Nitrite (Negative) Urine Bilirubin (Negative) Urine Urobilinogen (<2.0) mg/dL Ur Leukocyte Esterase (Negative) Urine RBC (0-5) /hpf Urine WBC (0-5) /hpf Urine Mucus (None) /hpf 08/29/18 Range/Units 01:35 WBC (3.8-10.6) k/uL RBC (4.30-5.90) m/uL Hgb (13.0-17.5) gm/dL Hct (39.0-53.0) % MCV (80.0-100.0) fL MCH (25.0-35.0) pg MCHC (31.0-37.0) g/dL RDW (11.5-15.5) % Plt Count (150-450) k/uL Neutrophils % % Lymphocytes % % Monocytes % % Eosinophils % % Basophils % % Neutrophils # (1.3-7.7) k/uL Lymphocytes # (1.0-4.8) k/uL Monocytes # (0-1.0) k/uL Eosinophils # (0-0.7) k/uL Basophils # (0-0.2) k/uL Hypochromasia Anisocytosis PT (9.0-12.0) sec INR (<1.2) APTT (22.0-30.0) sec Sodium (137-145) mmol/L Potassium (3.5-5.1) mmol/L Chloride (98-107) mmol/L Carbon Dioxide (22-30) mmol/L Anion Gap mmol/L BUN (9-20) mg/dL Creatinine (0.66-1.25) mg/dL Est GFR (CKD-EPI)AfAm (>60 ml/min/1.73 sqM) Est GFR (CKD-EPI)NonAf (>60 ml/min/1.73 sqM) Glucose (74-99) mg/dL Calcium (8.4-10.2) mg/dL Total Bilirubin (0.2-1.3) mg/dL AST (17-59) U/L ALT (21-72) U/L Alkaline Phosphatase (38-126) U/L Total Protein (6.3-8.2) g/dL Albumin (3.5-5.0) g/dL Urine Color Light Red Urine Appearance Clear (Clear) Urine pH 5.5 (5.0-8.0) Ur Specific [place] 1.033 (1.001-1.035) Urine Protein 1+ H (Negative) Urine Glucose (UA) 4+ H (Negative) Urine Ketones Negative (Negative) Urine Blood Large H (Negative) Urine Nitrite Negative (Negative) Urine Bilirubin Negative (Negative) Urine Urobilinogen <2.0 (<2.0) mg/dL Ur Leukocyte Esterase Negative (Negative) Urine RBC >182 H (0-5) /hpf Urine WBC 23 H (0-5) /hpf Urine Mucus Rare H (None) /hpf Disposition Is patient prescribed a controlled substance at d/c from ED?: No <Jet Welsh - Last Filed: 08/29/18 03:34> <Adina Temple - Last Filed: 08/29/18 21:30> Clinical Impression: Epistaxis, Hematuria Disposition: HOME SELF-CARE Condition: Stable Instructions (If sedation given, give patient instructions): Nosebleed (ED) Additional Instructions: Patient to adhere to previously discussed treatment plan and will take medication(s) as directed. Patient to follow up with PCP in 1-2 days. Patient to return to ED if symptoms do not improve. Follow-up with primary care provider and urology follow-up in 1-2 days. Return to ER if condition worsens in any way. Referrals: David Crane DO [Doctor of Osteopathic Medicine] - 1-2 days Kaden Morris MD [STAFF PHYSICIAN] - 1-2 days Mike Olivera MD [Primary Care Provider] - 1-2 days
--- NOTE | 2018-08-29 03:47 | ED ---
Medical Decision Making - Medical Decision Making Prior to discharge, right naris epistaxis began again. Nasal packing was placed. Patient will follow up with ENT for removal of packing and continued evaluation. - Lab Data Result diagrams: 08/29/18 01:35 08/29/18 01:35 Lab Results 08/29/18 08/29/18 08/29/18 Range/Units 01:35 01:35 01:35 WBC 9.1 (3.8-10.6) k/uL RBC 5.27 (4.30-5.90) m/uL Hgb 13.5 (13.0-17.5) gm/dL Hct 43.0 (39.0-53.0) % MCV 81.6 (80.0-100.0) fL MCH 25.7 (25.0-35.0) pg MCHC 31.5 (31.0-37.0) g/dL RDW 16.5 H (11.5-15.5) % Plt Count 228 (150-450) k/uL Neutrophils % 73 % Lymphocytes % 16 % Monocytes % 6 % Eosinophils % 2 % Basophils % 1 % Neutrophils # 6.7 (1.3-7.7) k/uL Lymphocytes # 1.4 (1.0-4.8) k/uL Monocytes # 0.5 (0-1.0) k/uL Eosinophils # 0.2 (0-0.7) k/uL Basophils # 0.1 (0-0.2) k/uL Hypochromasia Slight Anisocytosis Slight PT 16.7 H (9.0-12.0) sec INR 1.7 H (<1.2) APTT 29.5 (22.0-30.0) sec Sodium 140 (137-145) mmol/L Potassium 4.9 (3.5-5.1) mmol/L Chloride 104 (98-107) mmol/L Carbon Dioxide 25 (22-30) mmol/L Anion Gap 11 mmol/L BUN 29 H (9-20) mg/dL Creatinine 0.87 (0.66-1.25) mg/dL Est GFR (CKD-EPI)AfAm >90 (>60 ml/min/1.73 sqM) Est GFR (CKD-EPI)NonAf >90 (>60 ml/min/1.73 sqM) Glucose 341 H (74-99) mg/dL Calcium 9.9 (8.4-10.2) mg/dL Total Bilirubin 0.4 (0.2-1.3) mg/dL AST 25 (17-59) U/L ALT 32 (21-72) U/L Alkaline Phosphatase 79 (38-126) U/L Total Protein 7.3 (6.3-8.2) g/dL Albumin 4.5 (3.5-5.0) g/dL Urine Color Urine Appearance (Clear) Urine pH (5.0-8.0) Ur Specific [place] (1.001-1.035) Urine Protein (Negative) Urine Glucose (UA) (Negative) Urine Ketones (Negative) Urine Blood (Negative) Urine Nitrite (Negative) Urine Bilirubin (Negative) Urine Urobilinogen (<2.0) mg/dL Ur Leukocyte Esterase (Negative) Urine RBC (0-5) /hpf Urine WBC (0-5) /hpf Urine Mucus (None) /hpf 08/29/18 Range/Units 01:35 WBC (3.8-10.6) k/uL RBC (4.30-5.90) m/uL Hgb (13.0-17.5) gm/dL Hct (39.0-53.0) % MCV (80.0-100.0) fL MCH (25.0-35.0) pg MCHC (31.0-37.0) g/dL RDW (11.5-15.5) % Plt Count (150-450) k/uL Neutrophils % % Lymphocytes % % Monocytes % % Eosinophils % % Basophils % % Neutrophils # (1.3-7.7) k/uL Lymphocytes # (1.0-4.8) k/uL Monocytes # (0-1.0) k/uL Eosinophils # (0-0.7) k/uL Basophils # (0-0.2) k/uL Hypochromasia Anisocytosis PT (9.0-12.0) sec INR (<1.2) APTT (22.0-30.0) sec Sodium (137-145) mmol/L Potassium (3.5-5.1) mmol/L Chloride (98-107) mmol/L Carbon Dioxide (22-30) mmol/L Anion Gap mmol/L BUN (9-20) mg/dL Creatinine (0.66-1.25) mg/dL Est GFR (CKD-EPI)AfAm (>60 ml/min/1.73 sqM) Est GFR (CKD-EPI)NonAf (>60 ml/min/1.73 sqM) Glucose (74-99) mg/dL Calcium (8.4-10.2) mg/dL Total Bilirubin (0.2-1.3) mg/dL AST (17-59) U/L ALT (21-72) U/L Alkaline Phosphatase (38-126) U/L Total Protein (6.3-8.2) g/dL Albumin (3.5-5.0) g/dL Urine Color Light Red Urine Appearance Clear (Clear) Urine pH 5.5 (5.0-8.0) Ur Specific [place] 1.033 (1.001-1.035) Urine Protein 1+ H (Negative) Urine Glucose (UA) 4+ H (Negative) Urine Ketones Negative (Negative) Urine Blood Large H (Negative) Urine Nitrite Negative (Negative) Urine Bilirubin Negative (Negative) Urine Urobilinogen <2.0 (<2.0) mg/dL Ur Leukocyte Esterase Negative (Negative) Urine RBC >182 H (0-5) /hpf Urine WBC 23 H (0-5) /hpf Urine Mucus Rare H (None) /hpf Disposition Clinical Impression: Epistaxis, Hematuria Disposition: HOME SELF-CARE Condition: Stable Instructions (If sedation given, give patient instructions): Nosebleed (ED) Additional Instructions: Patient to adhere to previously discussed treatment plan and will take medication(s) as directed. Patient to follow up with PCP in 1-2 days. Patient to return to ED if symptoms do not improve. Follow-up with primary care provider and urology follow-up in 1-2 days. Return to ER if condition worsens in any way. Is patient prescribed a controlled substance at d/c from ED?: No Referrals: Kaden Morris MD [STAFF PHYSICIAN] - 1-2 days Mike Olivera MD [Primary Care Provider] - 1-2 days David Crane DO [Doctor of Osteopathic Medicine] - 1-2 days
--- NOTE | 2018-08-29 03:52 | ED ---
Medical Decision Making - Medical Decision Making epistaxis stopped prior to packing, no nasal packing placed - Lab Data Result diagrams: 08/29/18 01:35 08/29/18 01:35 Lab Results 08/29/18 08/29/18 08/29/18 Range/Units 01:35 01:35 01:35 WBC 9.1 (3.8-10.6) k/uL RBC 5.27 (4.30-5.90) m/uL Hgb 13.5 (13.0-17.5) gm/dL Hct 43.0 (39.0-53.0) % MCV 81.6 (80.0-100.0) fL MCH 25.7 (25.0-35.0) pg MCHC 31.5 (31.0-37.0) g/dL RDW 16.5 H (11.5-15.5) % Plt Count 228 (150-450) k/uL Neutrophils % 73 % Lymphocytes % 16 % Monocytes % 6 % Eosinophils % 2 % Basophils % 1 % Neutrophils # 6.7 (1.3-7.7) k/uL Lymphocytes # 1.4 (1.0-4.8) k/uL Monocytes # 0.5 (0-1.0) k/uL Eosinophils # 0.2 (0-0.7) k/uL Basophils # 0.1 (0-0.2) k/uL Hypochromasia Slight Anisocytosis Slight PT 16.7 H (9.0-12.0) sec INR 1.7 H (<1.2) APTT 29.5 (22.0-30.0) sec Sodium 140 (137-145) mmol/L Potassium 4.9 (3.5-5.1) mmol/L Chloride 104 (98-107) mmol/L Carbon Dioxide 25 (22-30) mmol/L Anion Gap 11 mmol/L BUN 29 H (9-20) mg/dL Creatinine 0.87 (0.66-1.25) mg/dL Est GFR (CKD-EPI)AfAm >90 (>60 ml/min/1.73 sqM) Est GFR (CKD-EPI)NonAf >90 (>60 ml/min/1.73 sqM) Glucose 341 H (74-99) mg/dL Calcium 9.9 (8.4-10.2) mg/dL Total Bilirubin 0.4 (0.2-1.3) mg/dL AST 25 (17-59) U/L ALT 32 (21-72) U/L Alkaline Phosphatase 79 (38-126) U/L Total Protein 7.3 (6.3-8.2) g/dL Albumin 4.5 (3.5-5.0) g/dL Urine Color Urine Appearance (Clear) Urine pH (5.0-8.0) Ur Specific [place] (1.001-1.035) Urine Protein (Negative) Urine Glucose (UA) (Negative) Urine Ketones (Negative) Urine Blood (Negative) Urine Nitrite (Negative) Urine Bilirubin (Negative) Urine Urobilinogen (<2.0) mg/dL Ur Leukocyte Esterase (Negative) Urine RBC (0-5) /hpf Urine WBC (0-5) /hpf Urine Mucus (None) /hpf 08/29/18 Range/Units 01:35 WBC (3.8-10.6) k/uL RBC (4.30-5.90) m/uL Hgb (13.0-17.5) gm/dL Hct (39.0-53.0) % MCV (80.0-100.0) fL MCH (25.0-35.0) pg MCHC (31.0-37.0) g/dL RDW (11.5-15.5) % Plt Count (150-450) k/uL Neutrophils % % Lymphocytes % % Monocytes % % Eosinophils % % Basophils % % Neutrophils # (1.3-7.7) k/uL Lymphocytes # (1.0-4.8) k/uL Monocytes # (0-1.0) k/uL Eosinophils # (0-0.7) k/uL Basophils # (0-0.2) k/uL Hypochromasia Anisocytosis PT (9.0-12.0) sec INR (<1.2) APTT (22.0-30.0) sec Sodium (137-145) mmol/L Potassium (3.5-5.1) mmol/L Chloride (98-107) mmol/L Carbon Dioxide (22-30) mmol/L Anion Gap mmol/L BUN (9-20) mg/dL Creatinine (0.66-1.25) mg/dL Est GFR (CKD-EPI)AfAm (>60 ml/min/1.73 sqM) Est GFR (CKD-EPI)NonAf (>60 ml/min/1.73 sqM) Glucose (74-99) mg/dL Calcium (8.4-10.2) mg/dL Total Bilirubin (0.2-1.3) mg/dL AST (17-59) U/L ALT (21-72) U/L Alkaline Phosphatase (38-126) U/L Total Protein (6.3-8.2) g/dL Albumin (3.5-5.0) g/dL Urine Color Light Red Urine Appearance Clear (Clear) Urine pH 5.5 (5.0-8.0) Ur Specific [place] 1.033 (1.001-1.035) Urine Protein 1+ H (Negative) Urine Glucose (UA) 4+ H (Negative) Urine Ketones Negative (Negative) Urine Blood Large H (Negative) Urine Nitrite Negative (Negative) Urine Bilirubin Negative (Negative) Urine Urobilinogen <2.0 (<2.0) mg/dL Ur Leukocyte Esterase Negative (Negative) Urine RBC >182 H (0-5) /hpf Urine WBC 23 H (0-5) /hpf Urine Mucus Rare H (None) /hpf Disposition Clinical Impression: Epistaxis, Hematuria Disposition: HOME SELF-CARE Condition: Stable Instructions (If sedation given, give patient instructions): Nosebleed (ED) Additional Instructions: Patient to adhere to previously discussed treatment plan and will take medication(s) as directed. Patient to follow up with PCP in 1-2 days. Patient to return to ED if symptoms do not improve. Follow-up with primary care provider and urology follow-up in 1-2 days. Return to ER if condition worsens in any way. Is patient prescribed a controlled substance at d/c from ED?: No Referrals: David Crane DO [Doctor of Osteopathic Medicine] - 1-2 days Kaden Morris MD [STAFF PHYSICIAN] - 1-2 days Mike Olivera MD [Primary Care Provider] - 1-2 days
[2018-08-29 04:20] VITALS: BP 146/86; PULSE 79; RESP 18; TEMP 97.5
== END 2018-08-29 04:21 | disposition home or self-care (01) ==
LOC: EC 23:49
DX: R04.0 Epistaxis (principal); R31.9 Hematuria, unspecified; E11.65 Type 2 diabetes mellitus with hyperglycemia; I25.10 Atherosclerotic heart disease of native coronary artery without angina pectoris; E78.5 Hyperlipidemia, unspecified; I10 Essential (primary) hypertension; I25.2 Old myocardial infarction; G47.30 Sleep apnea, unspecified; Z99.89 Dependence on other enabling machines and devices; F32.9 Major depressive disorder, single episode, unspecified; Z87.891 Personal history of nicotine dependence; Z79.01 Long term (current) use of anticoagulants; Z79.84 Long term (current) use of oral hypoglycemic drugs; Z79.899 Other long term (current) drug therapy; Z95.1 Presence of aortocoronary bypass graft; Z95.5 Presence of coronary angioplasty implant and graft; Z95.810 Presence of automatic (implantable) cardiac defibrillator
CPT/HCPCS: 36415; 80053; 81001; 85025; 85610; 85730; 99284

== ENCOUNTER → 2018-11-09 | Outpatient (CLI) | payer OTHER ==
[2018-11-09 14:04] LABS: African American GFR (CKD) >90 (>60 ml/min/1.73 sqM); Blood Urea Nitrogen 19 mg/dL (9-20); Non-African American GFR(CKD) >90 (>60 ml/min/1.73 sqM)
--- NOTE | 2018-11-09 16:07 | CT ---
"EXAMINATION TYPE: CT urogram wo/w con DATE OF EXAM: 11/09/2018 COMPARISON: CT 03/12/2018 HISTORY: Hematuria and difficulty urinating CT DLP: 2656.7 mGycm, Automated Exposure Control for Dose Reduction was Utilized. CONTRAST: CT scan of the abdomen and pelvis is performed with oral and without and with IV Contrast, patient in jected with 100 mL of Isovue 370. Three-dimensional reconstructions performed on an alternate worksta tion. FINDINGS: Heart shows intracardiac lead, there are coronary artery calcifications LUNG BASES: No significant abnormality is appreciated. LIVER/GB: Liver is borderline enlarged, there is low attenuation compatible with hepatic steatosis, gallbladder is contracted Pancreas: No significant abnormality is seen. SPLEEN: No significant abnormality is seen. ADRENALS: No significant abnormality is seen. KIDNEYS: There are punctate calcifications bilaterally within the renal collecting systems as well as vascular calcifications. No hydronephrosis. There is a cortical cyst present at the midpole the left kidney as on prior exam measuring approximately 2.6 cm. Ureters show normal course and caliber. BOWEL: No significant abnormality is seen. PROSTATE/SEMINAL VESICLES: Prostate is enlarged. There are associated calcifications. LYMPH NODES: N o greater than 1cm abdominal or pelvic lymph nodes are appreciated. OSSEOUS STRUCTURES: No significant abnormality is seen. OTHER: Atheromatous changes are present in the aortoiliac distribution. Urinary bladder shows a filling defect associated with the left side of the urinary bladder at the si te of a urine contrast level, axial image #59. There is some local bladder wall thickening along the left lateral margin. Consider bladder carcinoma. IMPRESSION: Findings may be indicative of transitional cell carcinoma within the bladder. Recommend c ystoscopy. Bilateral nonobstructive nephrolithiasis. A Yellow level critical message alert has been initiated for Alex Guerrero MD via the [employer] 60 | Critical Results System on 11/09/2018 4:04 PM. This message alert has been sent to Alex garibay MD via the preferences provided by the clinician for the receipt of Radiology Critical Findings. Marybel essage ID [id number]."
== END | disposition home or self-care (01) ==
LOC: RADCTMAIN 13:23
PROVIDERS: ATTEND Urology
DX: N20.0 Calculus of kidney (principal); R31.0 Gross hematuria
CPT/HCPCS: 82565; 84520; 74178; 36415; 74400; Q9967

== ENCOUNTER → 2018-11-26 | Outpatient (CLI) | payer OTHER ==
[2018-11-26 15:20] LABS: Basophils # (A) 0.1 k/uL (0-0.2); Basophils % (A) 1 %; Eosinophils # (A) 0.1 k/uL (0-0.7); Eosinophils % (A) 1 %; HCT 36.9 % (39.0-53.0); HGB 11.9 gm/dL (13.0-17.5); Hypochromasia Slight; Lymphocytes # (A) 1.5 k/uL (1.0-4.8); Lymphocytes % (A) 18 %; MCH 27.4 pg (25.0-35.0); MCHC 32.3 g/dL (31.0-37.0); MCV 84.8 fL (80.0-100.0); Mean Platelet Volume 6.5; Monocytes # (A) 0.5 k/uL (0-1.0); Monocytes % (A) 6 %; Neutrophils # (A) 5.8 k/uL (1.3-7.7); Neutrophils % (A) 72 %; Platelet Count 232 k/uL (150-450); RBC 4.35 m/uL (4.30-5.90); RDW 15.8 % (11.5-15.5); WBC 8.1 k/uL (3.8-10.6)
[2018-11-26 15:33] LABS: African American GFR (CKD) >90 (>60 ml/min/1.73 sqM); Anion Gap 10 mmol/L; Blood Urea Nitrogen 18 mg/dL (9-20); Calcium 9.1 mg/dL (8.4-10.2); Carbon Dioxide 25 mmol/L (22-30); Chloride 106 mmol/L (98-107); Glucose 125 mg/dL (74-99); Potassium 4.5 mmol/L (3.5-5.1); Sodium 141 mmol/L (137-145)
== END | disposition home or self-care (01) ==
LOC: LABPAT 14:19
PROVIDERS: ATTEND Urology
DX: Z01.812 Encounter for preprocedural laboratory examination (principal); E11.9 Type 2 diabetes mellitus without complications; C67.2 Malignant neoplasm of lateral wall of bladder; I10 Essential (primary) hypertension
CPT/HCPCS: 36415; 80048; 85025

== ENCOUNTER 2018-12-02 14:03 | Day surgery (SDC) | payer OTHER ==
[2018-11-29 08:55] VITALS: BMI 27.6
--- NOTE | 2018-12-01 17:20 | P.GSHP ---
History of Present Illness H&P Date: 12/01/18 Chief Complaint: Gross hematuria secondary to bladder tumor The patient is a 58-year-old male with a history of gross, painless hematuria which first was noted on 08/28/2018. The patient was on aspirin and warfarin but his INR was therapeutic at that time. Since then he has had several other episodes of gross hematuria, some of which were associated with the passage of blood clots. There has been no dysuria. The patient usually voids every 1-2 hours during the day secondary to use of diuretics. He has nocturia 1-2. He describes a moderate urinary flow. He has no history of urinary tract infection or urolithiasis. Patient was initially seen by me on 10/12/2018. Due to the gross hematuria a CT urogram was obtained on 11/09. This identified a benign appearing left renal cyst and punctate renal calculi. There also appeared to be a possible tumor on the left posterior bladder wall. Cystoscopy was performed finally on 11/19. A large tumor was noted on the left lateral wall consistent with transitional cell carcinoma. Patient is admitted for the purpose of transurethral resection of the tumor. - Constitutional Constitutional: Denies weight loss - EENT Ears, nose, mouth and throat: Reports epistaxis - Cardiovascular Cardiovascular: Reports decreased exercise tolerance, Denies chest pain, Denies syncope - Respiratory Respiratory: Denies cough, Denies wheezing - Gastrointestinal Gastrointestinal: Denies abdominal pain, Denies heartburn - Genitourinary (Male) Genitourinary: Reports as per HPI Past Medical History Past Medical History: Coronary Artery Disease (CAD), Cancer, Heart Failure (Cardiomyopathy with ejection fraction 20-30%), COPD, Diabetes Mellitus, Hyperlipidemia, Hypertension, Myocardial Infarction ([place]), Musculoskeletal Disorder, Sleep Apnea/CPAP/BIPAP Additional Past Medical History / Comment(s): CMP; HAS AICD. LOWER BACK, HIP PAIN, R/T HX MANUAL LABOR. USES CPAP. HX VA's 1997, 2005, 2010, 2016, "lt kidney growth cancer" Last Myocardial Infarction Date:: 01/2017 History of Any Multi-Drug Resistant Organisms: None Reported Past Surgical History: AICD, Coronary Bypass/CABG, Heart Catheterization With Stent () Additional Past Surgical History / Comment(s): 1 VESSEL CABG 01/2017. STENT X3. Hemorrhoidectomy. AICD, [employer], 10/08/17. Past Anesthesia/Blood Transfusion Reactions: No Reported Reaction Date of Last Stent Placement:: 2018 Type of Cardiac Device: AICD Device Placement Date:: 09/28/17 Smoking Status: Former smoker (Nonsmoker since 2011. Smoked over 1 pack per day for 35 years) - Past Family History Father Family Medical History: Cancer Mother Family Medical History: Coronary Artery Disease (CAD), Diabetes Mellitus Brother(s) Family Medical History: Coronary Artery Disease (CAD), Diabetes Mellitus Medications and Allergies Home Medications Medication Instructions Recorded Confirmed Type Isosorbide Mononitrate ER [Imdur] 30 mg PO DAILY #30 tab.er.24h 02/13/17 11/29/18 Rx Losartan [Cozaar] 50 mg PO DAILY #30 tab 02/13/17 11/29/18 Rx Empagliflozin/Linagliptin 1 tab PO DAILY 08/27/17 11/29/18 History [Glyxambi 25 mg-5 mg Tablet] FLUoxetine HCL 20 mg PO DAILY 08/27/17 11/29/18 History glipiZIDE [Glucotrol] 10 mg PO BID 08/27/17 11/29/18 History Spironolactone [Aldactone] 25 mg PO DAILY #90 tablet 09/29/17 11/29/18 Rx Atorvastatin [Lipitor] 80 mg PO HS 03/12/18 11/29/18 History Carvedilol [Coreg] 12.5 mg PO BID 03/12/18 11/29/18 History Hydrocodone/Acetaminophen [[place] 1 tab PO TID PRN 06/30/18 11/29/18 History 10-325] Warfarin [Coumadin] 2.5 mg PO SUTUTHSA 06/30/18 11/29/18 History Warfarin [Coumadin] 5 mg PO MOWEFR 06/30/18 11/29/18 History Aspirin 81 mg PO DAILY #30 chew 07/08/18 11/29/18 Rx Furosemide [Lasix] 40 mg PO BID #1 tablet 07/08/18 11/29/18 Rx Nitroglycerin Sl Tabs [Nitrostat] 0.4 mg SUBLINGUAL Q5M PRN #100 tab 07/08/18 11/29/18 Rx Clopidogrel [Plavix] 75 mg PO DAILY 11/29/18 11/29/18 History Umeclidinium Brm/Vilanterol Tr 1 puff INHALATION DAILY 11/29/18 11/29/18 History [Anoro Ellipta 62.5-25 Mcg INH] Allergies Allergy/AdvReac Type Severity Reaction Status Date / Time No Known Allergies Allergy Verified 11/29/18 08:43 Surgical - Exam - General well developed, well nourished, no distress - ENT no hearing loss - Neck carotid bruit: absent - Respiratory normal respiratory effort, clear to auscultation - Cardiovascular Rhythm: regular Abnormal Heart Sounds: no systolic murmur, no diastolic murmur - Abdomen Abdomen: soft, non tender, no organomegaly - Genitourinary normal penis with no external lesions, testicles non-tender - Rectum Rectum: other (Prostate 1-2+ enlarged and benign) Assessment and Plan (1) Hematuria, gross Narrative/Plan: The patient's gross hematuria appears to be secondary to a large tumor on the left posterior bladder wall. The patient will undergo transurethral resection of the tumor under general anesthesia. He is aware of the operative risks which include anesthesia, bleeding, infection, bladder perforation and the possible need for additional treatment depending on the tissue resected. The patient stopped aspirin and Plavix 5 days preoperatively. He was recently evaluated by Dr. José reveals that the patient is at increased but satisfactory risk for the planned procedure. Status: Acute Code(s): R31.0 - GROSS HEMATURIA SNOMED Code(s): 590711707
[2018-12-02 14:25] VITALS: TEMP 97.6
[2018-12-02 14:29] LABS: Glucose,Whole Blood 92 mg/dL (75-99)
[2018-12-02] MEDS ORDERED: LACTATED RINGERS 1,000 ML IV ONE ×3 (14:29→16:49)
[2018-12-02] MEDS ORDERED: LIDOCAINE 1% 20 ML VIAL (10MG/ML) FOR IV START INTRADERMA ONE (14:29)
[2018-12-02] MEDS ORDERED: ONDANSETRON 4 MG/2 ML VIAL IVP ONE (14:29)
[2018-12-02 14:47] LABS: Prothrombin Time 10.5 sec (9.0-12.0)
[2018-12-02] MEDS ORDERED: PHENYLEPHRINE-0.9% NACL SYG 1 MG/10 ML SYRINGE ONE (15:06)
[2018-12-02] MEDS ORDERED: SUCCINYLCHOLINE CHLORIDE 100 MG/5 ML SYR IV ONE (15:06)
[2018-12-02] MEDS ORDERED: MIDAZOLAM 2 MG/2 ML VIAL ONE (15:06)
[2018-12-02] MEDS ORDERED: LIDOCAINE 1% INJ 10MG/ML (20 ML MDV) ONE (15:06)
[2018-12-02] MEDS ORDERED: fentaNYL (PF) 50 MCG/ML 2 ML AMP ONE (15:06)
[2018-12-02] MEDS ORDERED: PROPOFOL 10 MG/ML 20 ML VIAL IV ONE (15:06)
--- NOTE | 2018-12-02 16:29 | P.OP ---
Date of Procedure: 12/02/18 Preoperative Diagnosis: Gross hematuria secondary to bladder cancer Postoperative Diagnosis: Gross hematuria secondary to bladder cancer Procedure(s) Performed: Transurethral resection of bladder tumor Anesthesia: KUSUM Surgeon: Alex Guerrero Estimated Blood Loss (ml): 15 Pathology: other (Bladder tumor and base of bladder tumor) Condition: stable Disposition: PACU Indications for Procedure: The patient is a 58 year old male with intermittent gross hematuria. Cystoscopy has identified a large tumor on the left posterior/lateral bladder wall. TUR of the tumor is planned. Description of Procedure: The patient was taken to the operating suite where adequate general anesthesia via orotracheal intubation was instituted. He was placed in the dorsal lithotomy position with his legs suspended from padded Ernie stirrups. Pneumatic compression stockings were applied to the lower legs. The genitalia was prepped with Betadine soap, painted with Betadine solution and draped in a sterile fashion. The penile and prostatic urethra were traversed under direct vision using the 25-Cameroonian resectoscope sheath, visual obturator and 30 lens. There was no evidence of inflammatory lesion, tumor or stricture noted in the anterior urethra. The prostatic urethra showed evidence of trilobar enlargement with elevation of the bladder neck from an enlarged median lobe which initially made passage of the resectoscope difficult. No urothelial abnormalities were noted within the urethra. The bladder was examined. On the left wall the bladder was a 5 cm papillary growth consistent with transitional cell carcinoma. The remainder the bladder was unremarkable. The tumor was posterior and lateral to the left ureteral orifice. The tumor was resected down to near the muscle using the continuous-flow Ralph resectoscope, and loop bipolar electrode. The tumor fragments were removed from the bladder using the Ellik evacuator and submitted as one specimen. The base the tumor was then resected down into the underlying muscle. Bleeding vessels were controlled using electrocautery and at the completion of the procedure hemostasis appeared excellent. The fragments from the base of the tumor were removed from the bladder using the helical evacuator. After ensuring removal of all fragments and good hemostasis the resectoscope was withdrawn. An 18-Cameroonian Walters catheter was inserted and left to gravity drainage. The patient tolerated procedure well and left the operating room awake and in satisfactory condition. Blood loss was between 10 and 15 mL. There were no intraoperative complications. The patient will be discharged with the catheter in place. Patient will remain off aspirin, Plavix and warfarin until his catheter has been removed and his urine remains clear for at least 48 hours. I anticipate leaving the catheter in for at least 3-4 days due to the size of the tumor.
[2018-12-02 16:56] LABS: Glucose,Whole Blood 94 mg/dL (75-99)
[2018-12-02 18:02] VITALS: BP 103/63; PULSE 81; RESP 20
== END 2018-12-02 18:11 | disposition home or self-care (01) ==
LOC: OR 14:03
PROVIDERS: ATTEND Urology
DX: C67.4 Malignant neoplasm of posterior wall of bladder (principal); I25.10 Atherosclerotic heart disease of native coronary artery without angina pectoris; I11.0 Hypertensive heart disease with heart failure; I50.22 Chronic systolic (congestive) heart failure; Z95.1 Presence of aortocoronary bypass graft; Z87.891 Personal history of nicotine dependence; E78.5 Hyperlipidemia, unspecified; E11.9 Type 2 diabetes mellitus without complications; I25.5 Ischemic cardiomyopathy; I25.2 Old myocardial infarction; I48.0 Paroxysmal atrial fibrillation; Z95.810 Presence of automatic (implantable) cardiac defibrillator; Z95.5 Presence of coronary angioplasty implant and graft; G47.33 Obstructive sleep apnea (adult) (pediatric); Z99.89 Dependence on other enabling machines and devices; Z82.49 Family history of ischemic heart disease and other diseases of the circulatory system; Z83.3 Family history of diabetes mellitus; Z79.01 Long term (current) use of anticoagulants; Z79.84 Long term (current) use of oral hypoglycemic drugs; Z79.02 Long term (current) use of antithrombotics/antiplatelets; Z79.82 Long term (current) use of aspirin; Z79.899 Other long term (current) drug therapy
CPT/HCPCS: 85610; 88307; 52235; J2250; J0690; J2405; J2001; J3010; J2370; J0330; J2704

== ENCOUNTER → 2018-12-29 | Outpatient (CLI) | payer OTHER ==
[2018-12-29 11:51] LABS: Basophils % (A) 0 %; Eosinophils # (A) 0.2 k/uL (0-0.7); Eosinophils % (A) 2 %; HCT 38.7 % (39.0-53.0); Hypochromasia Marked; Lymphocytes # (A) 1.3 k/uL (1.0-4.8); Lymphocytes % (A) 14 %; MCH 26.5 pg (25.0-35.0); MCV 85.5 fL (80.0-100.0); Mean Platelet Volume 6.1; Monocytes # (A) 0.5 k/uL (0-1.0); Monocytes % (A) 5 %; Neutrophils # (A) 7.4 k/uL (1.3-7.7); Neutrophils % (A) 77 %; Platelet Count 271 k/uL (150-450); Poikilocytosis Slight; RBC 4.53 m/uL (4.30-5.90); RDW 14.5 % (11.5-15.5); WBC 9.6 k/uL (3.8-10.6)
[2018-12-29 11:57] LABS: African American GFR (CKD) >90 (>60 ml/min/1.73 sqM); Anion Gap 9 mmol/L; Blood Urea Nitrogen 16 mg/dL (9-20); Calcium 9.4 mg/dL (8.4-10.2); Carbon Dioxide 26 mmol/L (22-30); Chloride 102 mmol/L (98-107); Glucose 234 mg/dL (74-99); Potassium 4.7 mmol/L (3.5-5.1); Sodium 137 mmol/L (137-145)
== END | disposition home or self-care (01) ==
LOC: LABPAT 10:25
PROVIDERS: ATTEND Urology
DX: Z01.812 Encounter for preprocedural laboratory examination (principal); C67.9 Malignant neoplasm of bladder, unspecified; Z79.01 Long term (current) use of anticoagulants
CPT/HCPCS: 36415; 80048; 85025

== ENCOUNTER 2019-01-05 09:52 | Day surgery (SDC) | payer OTHER ==
--- NOTE | 2018-12-31 09:29 | P.GSHP ---
History of Present Illness H&P Date: 12/31/18 Chief Complaint: Bladder cancer The patient is a 58-year-old male with a history of gross hematuria who underwent transurethral resection of a large bladder tumor on 12/02/2018. The tumor was high-grade transitional cell stage TI. He passed some blood transiently in late November but he has had no further episodes since then. Repeat resection of the tumor base is planned to ensure no residual or occult muscle invasive cancer. - Cardiovascular Cardiovascular: Reports decreased exercise tolerance, Denies lightheadedness, Denies palpitations - Respiratory Respiratory: Denies congestion, Denies wheezing - Gastrointestinal Gastrointestinal: Denies abdominal pain - Genitourinary (Male) Genitourinary: Denies dysuria, Denies hematuria Past Medical History Past Medical History: Coronary Artery Disease (CAD), COPD, Diabetes Mellitus, Hyperlipidemia, Hypertension, Myocardial Infarction ([place]), Musculoskeletal Disorder, Sleep Apnea/CPAP/BIPAP Additional Past Medical History / Comment(s): CMP; HAS AICD. See Dr Dow's H&P. LOWER BACK, HIP PAIN, R/T HX MANUAL LABOR. USES CPAP. HX [place]'s 1997, 2004, 2010, 2016 Last Myocardial Infarction Date:: 01/2017 History of Any Multi-Drug Resistant Organisms: None Reported Past Surgical History: AICD, Coronary Bypass/CABG, Heart Catheterization With Stent () Additional Past Surgical History / Comment(s): 1 VESSEL CABG 01/2017. STENT X3. Hemorrhoidectomy. AICD, [employer], 10/08/17.TUR bladder tumor 12/02/2018 Past Anesthesia/Blood Transfusion Reactions: No Reported Reaction Date of Last Stent Placement:: 2016 Type of Cardiac Device: AICD Device Placement Date:: 09/28/17 Smoking Status: Former smoker (Nonsmoker since 2011. Smoked over 1 pack per day for 35 years) - Past Family History Father Family Medical History: Cancer Mother Family Medical History: Coronary Artery Disease (CAD), Diabetes Mellitus Brother(s) Family Medical History: Coronary Artery Disease (CAD), Diabetes Mellitus Medications and Allergies Home Medications Medication Instructions Recorded Confirmed Type Isosorbide Mononitrate ER [Imdur] 30 mg PO DAILY #30 tab.er.24h 02/13/17 12/02/18 Rx Losartan [Cozaar] 50 mg PO DAILY #30 tab 02/13/17 12/02/18 Rx Empagliflozin/Linagliptin 1 tab PO DAILY 08/27/17 12/02/18 History [Glyxambi 25 mg-5 mg Tablet] FLUoxetine HCL 20 mg PO DAILY 08/27/17 12/02/18 History glipiZIDE [Glucotrol] 10 mg PO BID 08/27/17 12/02/18 History Spironolactone [Aldactone] 25 mg PO DAILY #90 tablet 09/29/17 12/02/18 Rx Atorvastatin [Lipitor] 80 mg PO HS 03/12/18 12/02/18 History Carvedilol [Coreg] 12.5 mg PO BID 03/12/18 12/02/18 History Hydrocodone/Acetaminophen [[place] 1 tab PO TID PRN 06/30/18 12/02/18 History 10-325] Warfarin [Coumadin] 2.5 mg PO SUTUTHSA 06/30/18 12/02/18 History Warfarin [Coumadin] 5 mg PO MOWEFR 06/30/18 12/02/18 History Aspirin 81 mg PO DAILY #30 chew 07/08/18 12/02/18 Rx Furosemide [Lasix] 40 mg PO BID #1 tablet 07/08/18 12/02/18 Rx Nitroglycerin Sl Tabs [Nitrostat] 0.4 mg SUBLINGUAL Q5M PRN #100 tab 07/08/18 12/02/18 Rx Clopidogrel [Plavix] 75 mg PO DAILY 11/29/18 12/02/18 History Umeclidinium Brm/Vilanterol Tr 1 puff INHALATION DAILY 11/29/18 12/02/18 History [Anoro Ellipta 62.5-25 Mcg INH] Allergies Allergy/AdvReac Type Severity Reaction Status Date / Time No Known Allergies Allergy Verified 12/02/18 14:18 Surgical - Exam - General well developed, well nourished, no distress - ENT no hearing loss - Neck carotid bruit: absent - Respiratory normal respiratory effort, clear to auscultation - Cardiovascular Rhythm: regular Abnormal Heart Sounds: no systolic murmur, no diastolic murmur - Abdomen Abdomen: soft, no organomegaly - Genitourinary normal penis with no external lesions, testicles non-tender Assessment and Plan (1) Bladder cancer Narrative/Plan: The patient will undergo transurethral resection of the bladder tumor base under general anesthesia. He is aware of the risks which include anesthesia, bleeding, infection and bladder perforation. If there is no occult muscle invasive disease then the patient will most likely begin intravesical BCG postoperatively. Status: Acute Code(s): C67.9 - MALIGNANT NEOPLASM OF BLADDER, UNSPECIFIED SNOMED Code(s): 404883709
[2019-01-03 15:50] VITALS: BMI 27.6
[~2019-01-05 09:52] MED LIST changes: +DEXAMETHASONE SOD PHOSPHATE 10 MG/ML 1 ML VIAL IV ONE; +HYDROmorphone 0.5 MG/0.5 ML SYRINGE IVP PRN; +LIDOCAINE 1% 20 ML VIAL (10MG/ML) FOR IV START INTRADERMA PRN; +MIDAZOLAM 2 MG/2 ML VIAL IV PRN; +ONDANSETRON 4 MG/2 ML VIAL IVP ONE; +SCOPOLAMINE 1.5MG/72HR PATCH TRANSDERM ONE
[2019-01-05 11:06] LABS: Glucose,Whole Blood 100 mg/dL (75-99)
[2019-01-05 11:08] LABS: Partial Thromboplastin Time 26.2 sec (22.0-30.0); Prothrombin Time 10.9 sec (9.0-12.0)
[2019-01-05] MEDS ORDERED: LIDOCAINE 1% INJ 10MG/ML (20 ML MDV) ONE (11:36)
[2019-01-05] MEDS ORDERED: ePHEDrine SULFATE/0.9% NACL/PF 50 MG/5 ML SYRINGE IV ONE (11:36)
[2019-01-05] MEDS ORDERED: MIDAZOLAM 2 MG/2 ML VIAL ONE (11:36)
[2019-01-05] MEDS ORDERED: fentaNYL (PF) 50 MCG/ML 2 ML AMP ONE (11:36)
[2019-01-05] MEDS ORDERED: PROPOFOL 10 MG/ML 20 ML VIAL IV ONE (11:36)
[2019-01-05] MEDS ORDERED: SUCCINYLCHOLINE CHLORIDE 100 MG/5 ML SYR IV ONE (11:36)
[2019-01-05 12:35] VITALS: TEMP 97.1
--- NOTE | 2019-01-05 12:38 | P.OP ---
Date of Procedure: 01/05/19 Preoperative Diagnosis: Bladder cancer Postoperative Diagnosis: No definite residual cancer Procedure(s) Performed: Transurethral resection of bladder tumor scar Anesthesia: KUSUM Surgeon: Alex Guerrero Estimated Blood Loss (ml): 2 Pathology: other (Bladder tumor scar) Condition: stable Disposition: PACU Indications for Procedure: Patient's 58-year-old male with a history of gross hematuria who underwent transurethral resection of a high-grade stage TI transitional cell carcinoma arising from the left wall the bladder 3 weeks ago. Re resection of the tumor base is planned to exclude any muscle invasive tumor or residual cancer. Description of Procedure: The patient was taken the operating suite where adequate general anesthesia via orotracheal intubation was instituted. He was placed in the dorsal lithotomy position with his legs suspended from padded Ernie stirrups. Pneumatic compression stockings were applied to the lower legs. The genitalia was prepped with Betadine solution and draped in a sterile fashion. The 25-Pakistani resectosc ope sheath with visual obturator and 30 lens was passed through the urethra under direct vision. The anterior urethra was unremarkable. Prostatic urethra showed evidence of moderate lateral lobe enlargement. No urothelial abnormalities were noted. The bladder was examined. Both ureteral orifices were of normal location and configuration. On the left wall the bladder near the trigone was an area of scar corresponding to the previous area of tumor. There was no evidence of papillary growth suggestive of residual cancer. The remainder the bladder was unremarkable. Using loop cutting electrode the scar was resected down to the underlying muscle. Bleeding was negligible and was controlled using electrocautery. The fragments of scar were then irrigated from the bladder through the resectoscope and the resectoscope was withdrawn. A 16- Pakistani Walters catheter was inserted and left to gravity drainage. The patient tolerated procedure well and left the operative room awake and in satisfactory condition. Blood loss was less than 2 or 3 mL. Further recommendations are dependent on the tissue resected.
[2019-01-05] MEDS ORDERED: LACTATED RINGERS 1,000 ML IV ONE (12:58)
[2019-01-05 13:53] VITALS: BP 114/72; PULSE 88; RESP 16
--- NOTE | 2019-01-10 11:16 | CDI ---
Outpatient Documentation Clarification Form Date: 01.10.19 CDS/Vinegar Maker Name: Lizzette Newberry Phone: If any questions, call Cassie Adams Senior Business Consultant at [phone] Patient Name: Darien Adams Admit Date: 01.05.19 Discharge Date: 01.05.19 ATTENTION: The [facility] Coding Staff appreciate your assistance in clarifying documentation. Please respond to the clarification below the line at the bottom and electronically sign. The [facility] Coding staff will review the response and follow-up if needed. Please note: Queries are made part of the Legal Health Record. If you have any questions, please contact the Senior Business Consultant. Dear Dr. Guerrero, Please document the size of the lesion you removed from the bladder. Thank you for your kind consideration. MTDD
== END 2019-01-05 14:05 | disposition home or self-care (01) ==
LOC: OR 09:52
PROVIDERS: ATTEND Urology
DX: C67.9 Malignant neoplasm of bladder, unspecified (principal); I25.10 Atherosclerotic heart disease of native coronary artery without angina pectoris; J44.9 Chronic obstructive pulmonary disease, unspecified; E11.9 Type 2 diabetes mellitus without complications; E78.5 Hyperlipidemia, unspecified; I10 Essential (primary) hypertension; I25.2 Old myocardial infarction; G47.30 Sleep apnea, unspecified; Z99.89 Dependence on other enabling machines and devices; Z87.39 Personal history of other diseases of the musculoskeletal system and connective tissue; Z95.810 Presence of automatic (implantable) cardiac defibrillator; Z95.1 Presence of aortocoronary bypass graft; Z95.5 Presence of coronary angioplasty implant and graft; Z98.890 Other specified postprocedural states; Z87.891 Personal history of nicotine dependence; Z80.9 Family history of malignant neoplasm, unspecified; Z82.49 Family history of ischemic heart disease and other diseases of the circulatory system; Z83.3 Family history of diabetes mellitus; Z79.899 Other long term (current) drug therapy; Z79.84 Long term (current) use of oral hypoglycemic drugs; Z79.01 Long term (current) use of anticoagulants; Z79.82 Long term (current) use of aspirin; Z79.02 Long term (current) use of antithrombotics/antiplatelets; N40.0 Benign prostatic hyperplasia without lower urinary tract symptoms
CPT/HCPCS: 52234; 85610; 85730; 88342; 88307; 88341; J2250; J1100; J0690; J2405; J2001; J3010; J0330; J2704

== ENCOUNTER → 2019-05-30 | Outpatient (CLI) | payer OTHER ==
--- NOTE | 2019-05-31 12:12 | XR ---
Chest x-ray with left RIBS HISTORY: Trauma and pain View of the chest, 4 views of the left ribs submitted and correlated prior chest x-ray 2018 There is a generator in left pectoral region, intracardiac defibrillator lead in the right ventricle. Patient is post median sternotomy and rotated. There is no evident pneumothorax or pleural effusion. Lung volumes are low. Heart remains enlarged. Pulmonary vascularity and patricia not significantly curry ed. Bone mineralization is reduced which may limit sensitivity. Overlying generator may obscure detai l. No displaced fracture is seen. Thoracic spondylosis is present. There are dense vascular calcifica tions present. IMPRESSION: No acute traumatic injury is evident. Bone scan could be performed for increased sensitiv ity as indicated if occult fracture is suspected. There are limitations to the exam.
== END | disposition home or self-care (01) ==
LOC: RADXRMAIN 16:30
PROVIDERS: ATTEND Family Medicine
DX: R52 Pain, unspecified (principal)

== ENCOUNTER → 2019-10-18 | Outpatient (CLI) | payer MEDICARE, OTHER ==
[2019-10-19 00:52] LABS: African American GFR (CKD) 95.7 (60.0-200.0); Anion Gap 8.8 mmol/L (4.00-12.00); Calcium 8.7 mg/dL (8.7-10.3); Carbon Dioxide 25.2 mmol/L (21.6-31.8); Non-African American GFR(CKD) 82.6 (60.0-200.0); Potassium 4.4 mmol/L (3.5-5.5)
== END ==
LOC: LABWHC1 14:38
PROVIDERS: ATTEND Internal Medicine Cardiovascular Disease
DX: I50.22 Chronic systolic (congestive) heart failure (principal)
CPT/HCPCS: 36415; 80048; 83880; 84443; 84450; 84460

== ENCOUNTER 2019-12-27 11:53 | Inpatient (IN) | payer MEDICARE, OTHER ==
--- NOTE | 2019-12-27 12:19 | ED ---
General Adult HPI - General Chief complaint: Dizziness Stated complaint: SENT BY PCP Time Seen by Provider: 12/27/19 12:04 Source: patient Mode of arrival: ambulatory Limitations: no limitations - History of Present Illness Initial comments: Dictation was produced using [employer] dictation software. please excuse any grammatical, word or spelling errors. This patient was cared for during a federal and state declared state of emergency secondary to Covid 19 Chief Complaint: 59-year-old male presents with abnormal EKG and dizziness from primary care physician's office. History of Present Illness: 59-year-old male he has multiple cardiac and pulmonary comorbidities. Patient was at his primary care physician's office for his monthly checkup. He was found to have low blood pressures systolic measuring in the 80s. Also found have narrow complex tachydysrhythmia on EKG at PCPs office. Patient states besides some mild dizziness he has been feeling otherwise pretty well. Primary care physician's office charts patient come to the emergency department immediately for medical evaluation. Patient hasn't chest pain. No shortness of breath reason for feeling slightly dizzy for the last 2-3 days. Patient takes multiple medications including diuretics, Coumadin and antihypertensives. Patient is also a sugar diabetic. The ROS documented in this emergency department record has been reviewed and confirmed by me. Those systems with pertinent positive or negative responses have been documented in the HPI. All other systems are other negative and/or noncontributory. PHYSICAL EXAM: General Impression: Alert and oriented x3, not in acute distress HEENT: Normocephalic atraumatic, extra-ocular movements intact, pupils equal and reactive to light bilaterally, mucous membranes moist. Cardiovascular: Heart regular rate and rhythm Chest: Able to complete full sentences, no retractions, no tachypnea Abdomen: abdomen soft, non-tender, non-distended, no organomegaly Musculoskeletal: Pulses present and equal in all extremities, no peripheral edema Motor: no focal deficits noted Neurological: CN II-XII grossly intact, no focal motor or sensory deficits noted Skin: Intact with no visualized rashes Psych: Normal affect and mood ED course: 59-year-old male presents with instructions from P sputum to the emergency department for hypotension and abnormal EKG. Signs upon arrival shows blood pressure of 93 with 57, rest of vital signs within except the limits. Medications were reviewed. He takes Coumadin, beta timothy, [id number] antihyperglycemic's. He also takes antihypertensive medications.Laboratory evaluation obtained. CBC is unremarkable. There is findings of macrocytosis. Coag panel shows INR 1.2. Patient reports that he takes Coumadin for mechanical valve. Metabolic panel shows elevated BUN. Clinical concern of dehydration. Glucose 214. Lactic acidosis of 2.1. Rest of labs are grossly unremarkable per chest x-ray is unremarkable. To be heparinized due to subtherapeutic INR. Patient's blood pressure is stable. Concerned that patient's symptoms are from dehydration. Patient will be admitted. Patient be admitted to Dr. Corin Olivera. Patient denies any history of A. fib. Cardiology will be consulted. We will hold and antihypertensives and diabetic medications at this time. EKG interpretation: Ventricular rate 71, A. fib, QRS 102, QTc 525. Prolonged QT. Atrial fibrillation. EKG significantly different compared to most recently available EKG from 06/30/2018 - Related Data Home Medications Medication Instructions Recorded Confirmed Empagliflozin/Linagliptin 1 tab PO DAILY 08/27/17 12/27/19 [Glyxambi 25 mg-5 mg Tablet] FLUoxetine HCL 20 mg PO DAILY 08/27/17 12/27/19 Atorvastatin [Lipitor] 80 mg PO HS 03/12/18 12/27/19 Hydrocodone/Acetaminophen [[place] 1 tab PO TID PRN 06/30/18 12/27/19 10-325] Clopidogrel [Plavix] 75 mg PO DAILY 11/29/18 12/27/19 Umeclidinium Brm/Vilanterol Tr 1 puff INHALATION RT-DAILY 11/29/18 12/27/19 [Anoro Ellipta 62.5-25 Mcg INH] Furosemide [Lasix] 40 mg PO BID@0800,1400 01/03/19 12/27/19 Amiodarone [Cordarone] 200 mg PO DAILY 12/27/19 12/27/19 Carvedilol [Coreg] 25 mg PO BID 12/27/19 12/27/19 Repaglinide [Prandin] 0.5 mg PO BID 12/27/19 12/27/19 Warfarin Sodium [Jantoven] 2.5 mg PO SUMOWETHFRSA 12/27/19 12/27/19 Warfarin Sodium [Jantoven] 5 mg PO TU 12/27/19 12/27/19 dilTIAZem HCL [Diltiazem HCl] 30 mg PO BID 12/27/19 12/27/19 glipiZIDE [Glucotrol] 10 mg PO AC-BID 12/27/19 12/27/19 metOLazone [Zaroxolyn] 5 mg PO DAILY 12/27/19 12/27/19 Previous Rx's Medication Instructions Recorded Isosorbide Mononitrate ER [Imdur] 30 mg PO DAILY #30 tab.er.24h 02/13/17 Losartan [Cozaar] 50 mg PO DAILY #30 tab 02/13/17 Spironolactone [Aldactone] 25 mg PO DAILY #90 tablet 09/29/17 Aspirin 81 mg PO DAILY #30 chew 07/08/18 Nitroglycerin Sl Tabs [Nitrostat] 0.4 mg SUBLINGUAL Q5M PRN #100 tab 07/08/18 Allergies Allergy/AdvReac Type Severity Reaction Status Date / Time No Known Allergies Allergy Verified 12/27/19 12:41 Review of Systems ROS Statement: Those systems with pertinent positive or pertinent negative responses have been documented in the HPI. ROS Other: All systems not noted in ROS Statement are negative. Past Medical History Past Medical History: Coronary Artery Disease (CAD), COPD, Diabetes Mellitus, Hyperlipidemia, Hypertension, Myocardial Infarction ([place]), Musculoskeletal Disorder, Sleep Apnea/CPAP/BIPAP Additional Past Medical History / Comment(s): CMP; HAS AICD. See Dr Dow's H&P. LOWER BACK, HIP PAIN, R/T HX MANUAL LABOR. USES CPAP. HX [place]'s 1997, 2004, 2010, 2016 Last Myocardial Infarction Date:: 01/2017 History of Any Multi-Drug Resistant Organisms: None Reported Past Surgical History: AICD, Coronary Bypass/CABG, Heart Catheterization With Stent Additional Past Surgical History / Comment(s): 1 VESSEL CABG 01/2017. STENT X3. Hemorrhoidectomy. AICD, [employer], 10/08/17. Past Anesthesia/Blood Transfusion Reactions: No Reported Reaction Date of Last Stent Placement:: 2016 Type of Cardiac Device: AICD Device Placement Date:: 09/28/17 Past Psychological History: Depression Smoking Status: Current every day smoker Past Alcohol Use History: None Reported Past Drug Use History: None Reported - Past Family History Father Family Medical History: Cancer Mother Family Medical History: Coronary Artery Disease (CAD), Diabetes Mellitus Brother(s) Family Medical History: Coronary Artery Disease (CAD), Diabetes Mellitus General Exam Limitations: no limitations Course Vital Signs 12/27/19 12/27/19 11:54 12:15 Temperature 98 F Pulse Rate 60 71 Respiratory 18 16 Rate Blood Pressure 93/57 93/56 O2 Sat by Pulse 100 Oximetry Medical Decision Making - Lab Data Result diagrams: 12/27/19 12:19 12/27/19 12:19 Lab Results 12/27/19 12/27/19 12/27/19 Range/Units 12:19 12:19 12:19 WBC 8.3 (3.8-10.6) k/uL RBC 5.59 (4.30-5.90) m/uL Hgb 13.5 (13.0-17.5) gm/dL Hct 44.2 (39.0-53.0) % MCV 79.0 L (80.0-100.0) fL MCH 24.2 L (25.0-35.0) pg MCHC 30.6 L (31.0-37.0) g/dL RDW 23.4 H (11.5-15.5) % Plt Count 223 (150-450) k/uL Neutrophils % 79 % Lymphocytes % 12 % Monocytes % 6 % Eosinophils % 1 % Basophils % 1 % Neutrophils # 6.5 (1.3-7.7) k/uL Lymphocytes # 1.0 (1.0-4.8) k/uL Monocytes # 0.5 (0-1.0) k/uL Eosinophils # 0.1 (0-0.7) k/uL Basophils # 0.1 (0-0.2) k/uL Hypochromasia Marked Anisocytosis Moderate Microcytosis Moderate PT 11.9 (9.0-12.0) sec INR 1.2 H (<1.2) APTT 24.6 (22.0-30.0) sec Sodium 136 L (137-145) mmol/L Potassium 4.8 (3.5-5.1) mmol/L Chloride 99 (98-107) mmol/L Carbon Dioxide 25 (22-30) mmol/L Anion Gap 12 mmol/L BUN 40 H (9-20) mg/dL Creatinine 1.15 (0.66-1.25) mg/dL Est GFR (CKD-EPI)AfAm 81 (>60 ml/min/1.73 sqM) Est GFR (CKD-EPI)NonAf 70 (>60 ml/min/1.73 sqM) Glucose 314 H (74-99) mg/dL POC Glucose (mg/dL) (75-99) mg/dL POC Glu Rolling Machine Operator ID Plasma Lactic Acid Shane (0.7-2.0) mmol/L Calcium 9.1 (8.4-10.2) mg/dL Ionized Calcium Heriberto 4.8 (4.5-5.3) mg/dL Magnesium 2.3 (1.6-2.3) mg/dL Total Bilirubin 0.8 (0.2-1.3) mg/dL AST 50 (17-59) U/L ALT 63 H (4-49) U/L Alkaline Phosphatase 114 (38-126) U/L Troponin I (0.000-0.034) ng/mL Total Protein 7.3 (6.3-8.2) g/dL Albumin 4.3 (3.5-5.0) g/dL TSH 2.470 (0.465-4.680) mIU/L 12/27/19 12/27/19 12/27/19 Range/Units 12:19 12:19 12:30 WBC (3.8-10.6) k/uL RBC (4.30-5.90) m/uL Hgb (13.0-17.5) gm/dL Hct (39.0-53.0) % MCV (80.0-100.0) fL MCH (25.0-35.0) pg MCHC (31.0-37.0) g/dL RDW (11.5-15.5) % Plt Count (150-450) k/uL Neutrophils % % Lymphocytes % % Monocytes % % Eosinophils % % Basophils % % Neutrophils # (1.3-7.7) k/uL Lymphocytes # (1.0-4.8) k/uL Monocytes # (0-1.0) k/uL Eosinophils # (0-0.7) k/uL Basophils # (0-0.2) k/uL Hypochromasia Anisocytosis Microcytosis PT (9.0-12.0) sec INR (<1.2) APTT (22.0-30.0) sec Sodium (137-145) mmol/L Potassium (3.5-5.1) mmol/L Chloride (98-107) mmol/L Carbon Dioxide (22-30) mmol/L Anion Gap mmol/L BUN (9-20) mg/dL Creatinine (0.66-1.25) mg/dL Est GFR (CKD-EPI)AfAm (>60 ml/min/1.73 sqM) Est GFR (CKD-EPI)NonAf (>60 ml/min/1.73 sqM) Glucose (74-99) mg/dL POC Glucose (mg/dL) 314 H (75-99) mg/dL POC Glu Rolling Machine Operator ID Cherie Katz Plasma Lactic Acid Shane 2.1 H* (0.7-2.0) mmol/L Calcium (8.4-10.2) mg/dL Ionized Calcium Heriberto (4.5-5.3) mg/dL Magnesium (1.6-2.3) mg/dL Total Bilirubin (0.2-1.3) mg/dL AST (17-59) U/L ALT (4-49) U/L Alkaline Phosphatase (38-126) U/L Troponin I 0.021 (0.000-0.034) ng/mL Total Protein (6.3-8.2) g/dL Albumin (3.5-5.0) g/dL TSH (0.465-4.680) mIU/L Disposition Clinical Impression: Hypotension, Dehydration, Afib Disposition: ADMITTED IP TO THIS [facility] Condition: Fair Referrals: Mike Olivera MD [Primary Care Provider] - 1-2 days Decision Time: 13:24
[2019-12-27 12:29] LABS: Anisocytosis Moderate; Basophils # (A) 0.1 k/uL (0-0.2); Basophils % (A) 1 %; Eosinophils # (A) 0.1 k/uL (0-0.7); Eosinophils % (A) 1 %; HCT 44.2 % (39.0-53.0); HGB 13.5 gm/dL (13.0-17.5); Hypochromasia Marked; Lymphocytes % (A) 12 %; MCH 24.2 pg (25.0-35.0); MCHC 30.6 g/dL (31.0-37.0); Mean Platelet Volume 7.3; Microcytosis Moderate; Monocytes # (A) 0.5 k/uL (0-1.0); Monocytes % (A) 6 %; Neutrophils # (A) 6.5 k/uL (1.3-7.7); Neutrophils % (A) 79 %; Platelet Count 223 k/uL (150-450); RBC 5.59 m/uL (4.30-5.90); RDW 23.4 % (11.5-15.5); WBC 8.3 k/uL (3.8-10.6)
[2019-12-27 12:32] LABS: Glucose,Whole Blood 314 mg/dL (75-99)
[2019-12-27 12:38] LABS: INR 1.2 (<1.2); Partial Thromboplastin Time 24.6 sec (22.0-30.0); Prothrombin Time 11.9 sec (9.0-12.0)
[2019-12-27 12:39] LABS: Ionized Calcium 4.8 mg/dL (4.5-5.3)
--- NOTE | 2019-12-27 12:43 | XR ---
EXAMINATION TYPE: XR chest 1V portable DATE OF EXAM: 12/27/2019 COMPARISON: Chest x-ray May 30, 2019 and older x-rays. HISTORY: Elevated heart rate and hypotension. Dysrhythmia. TECHNIQUE: Single AP portable frontal upright view of the chest is obtained. FINDINGS: There is chronic parenchymal changes bilaterally without suspicious new focal air space op acity, pleural effusion, or pneumothorax seen. The cardiac silhouette size remains enlarged with sin gle lead pacemaker/defibrillator redemonstrated. Overlying sternal wires and mediastinal clips again seen. The osseous structures remain demineralized. IMPRESSION: Chronic changes and cardiomegaly without acute pulmonary process.
[2019-12-27 12:45] LABS: Albumin 4.3 g/dL (3.5-5.0); Calcium 9.1 mg/dL (8.4-10.2); Magnesium 2.3 mg/dL (1.6-2.3); Potassium 4.8 mmol/L (3.5-5.1); Total Bilirubin 0.8 mg/dL (0.2-1.3); Total Protein 7.3 g/dL (6.3-8.2)
[2019-12-27] MEDS ORDERED: HEPARIN SODIUM,PORCINE 5,000 UNIT/ML 1 ML VIAL IV PRN (13:21)
[2019-12-27] MEDS ORDERED: HEPARIN SODIUM,PORCINE 5,000 UNIT/ML 1 ML VIAL IV ONE (13:21)
[2019-12-27] MEDS ORDERED: NALOXONE 0.4 MG/ML 1 ML VIAL IV PRN (13:24)
[2019-12-27] MEDS: SODIUM CHLORIDE 0.9% 1,000 ML IV SCH (13:43)
[2019-12-27] MEDS: HEPARIN SOD,PORK IN 0.45% NACL 25,000 UNIT in 0.45% NACL 1 250ML.BAG IV SCH (13:44)
[2019-12-27] MEDS ORDERED: SODIUM CHLORIDE 0.9% 1,000 ML IV STA (14:01)
[2019-12-27 14:46] VITALS: RESP 16
[2019-12-27] MEDS: HYDROcodone/APAP 10-325MG 1 EACH TAB PO PRN (17:01)
[2019-12-27] MEDS: carvediloL 12.5 MG TAB PO SCH (17:01)
[2019-12-27 20:42] LABS: Glucose,Whole Blood 153 mg/dL (75-99)
[2019-12-27] MEDS ORDERED: ATORVASTATIN 80 MG TAB PO SCH (21:00)
[2019-12-28] MEDS: SODIUM CHLORIDE 0.9% 1,000 ML IV SCH (03:37)
[2019-12-28] MEDS: HYDROcodone/APAP 10-325MG 1 EACH TAB PO PRN ×2 (04:01→11:45)
[2019-12-28] MEDS: carvediloL 12.5 MG TAB PO SCH (06:09)
[2019-12-28 06:10] LABS: Glucose,Whole Blood 143 mg/dL (75-99)
[2019-12-28 08:47] LABS: Anisocytosis Moderate; Basophils # (A) 0.1 k/uL (0-0.2); Basophils % (A) 1 %; Eosinophils # (A) 0.1 k/uL (0-0.7); Eosinophils % (A) 2 %; HCT 39.7 % (39.0-53.0); HGB 11.9 gm/dL (13.0-17.5); Hypochromasia Marked; Lymphocytes % (A) 14 %; MCH 24.1 pg (25.0-35.0); MCHC 29.9 g/dL (31.0-37.0); MCV 80.6 fL (80.0-100.0); Mean Platelet Volume 7.1; Microcytosis Moderate; Monocytes # (A) 0.4 k/uL (0-1.0); Monocytes % (A) 6 %; Neutrophils # (A) 5.1 k/uL (1.3-7.7); Neutrophils % (A) 76 %; Platelet Count 165 k/uL (150-450); RBC 4.93 m/uL (4.30-5.90); RDW 23.5 % (11.5-15.5); WBC 6.8 k/uL (3.8-10.6)
[2019-12-28 09:00] LABS: INR 1.1 (<1.2); Partial Thromboplastin Time 43.5 sec (22.0-30.0); Prothrombin Time 11.6 sec (9.0-12.0)
[2019-12-28] MEDS ORDERED: ISOSORBIDE MONONITRATE ER 30 MG TAB.ER.24H PO SCH (09:00)
[2019-12-28] MEDS ORDERED: FLUoxetine HCL 20 MG CAP PO SCH (09:00)
[2019-12-28] MEDS ORDERED: ASPIRIN 81 MG PO SCH (09:00)
[2019-12-28] MEDS ORDERED: AMIODARONE 200 MG TAB PO SCH (09:00)
[2019-12-28] MEDS ORDERED: CLOPIDOGREL 75 MG TAB PO SCH (09:00)
[2019-12-28 09:09] VITALS: TEMP 97.5
[2019-12-28 09:18] LABS: African American GFR (CKD) >90 (>60 ml/min/1.73 sqM); Anion Gap 9 mmol/L; Blood Urea Nitrogen 38 mg/dL (9-20); Calcium 8.1 mg/dL (8.4-10.2); Carbon Dioxide 25 mmol/L (22-30); Chloride 100 mmol/L (98-107); Glucose 319 mg/dL (74-99); Magnesium 2.2 mg/dL (1.6-2.3); Non-African American GFR(CKD) 83 (>60 ml/min/1.73 sqM); Potassium 4.8 mmol/L (3.5-5.1); Sodium 134 mmol/L (137-145)
[2019-12-28] MEDS: HEPARIN SOD,PORK IN 0.45% NACL 25,000 UNIT in 0.45% NACL 1 250ML.BAG IV SCH (09:41)
[2019-12-28] MEDS ORDERED: SODIUM CHLORIDE 0.9% 1,000 ML IV SCH (10:45)
--- NOTE | 2019-12-28 10:50 | P.CRDCN ---
History of Present Illness Consult date: 12/28/19 History of present illness: CHIEF COMPLAINT: New onset A. fib HISTORY OF PRESENT ILLNESS: This is a 59-year old male with a past medical history significant for coronary artery disease, COPD, ischemic myopathy, previous AICD, and nicotine dependence. Patient follows in the office with Dr. José. We have been asked to see the patient in consultation for new onset afib. Patient examined this morning at the bedside. Patient states he was at his primary care physician's office yesterday and was found to be hypotensive. Jose Alberto poole was found to be in atrial fibrillation which was thought to be new and the patient was transferred to the hospital for further evaluation. Patient reports feeling dizzy over the last few weeks after starting Zaroxolyn. He denies palpitations. Denies chest pain. Denies shortness of breath. DIAGNOSTICS: EKG reveals atrial fibrillation. Chest xray chronic changes and cardiomegaly without acute pulmonary process. Laboratory data: WBC 6.8. Hemoglobin 11.9. Platelet count 165. Sodium 134. Potassium 4.8. BUN 38. Creatinine 1.0. Troponin negative 1 Current home cardiac medications include Zaroxolyn 5 mg daily, Cardizem 30 mg twice a day, Coumadin, Aldactone 25 mg daily, Cozaar 59 g daily, Imdur 30 mg daily, Lasix 40 mg twice a day, Plavix 75 mg daily, Coreg 25 mg twice a day, Lipitor 80 mg daily, aspirin 81 mg daily, and amiodarone 20 mg daily. Patient's pacemaker was irrigated revealing atrial fibrillation 10% of the time. Patient underwent a cardiac cath with Dr. José in June 2017 revealing severe triple vessel disease with patent GODINEZ to LAD. He also had a stent placed to the circumflex. REVIEW OF SYSTEMS: At the time of my exam: CONSTITUTIONAL: Denies fever or chills. HEENT: Denies blurred vision, vision changes, or eye pain. Denies hemoptysis CARDIOVASCULAR: Denies chest pain, orthopnea, PND or palpitations RESPIRATORY: No shortness of breath. GASTROINTESTINAL: Denies abdominal pain. Denies nausea or vomiting. HEMATOLOGIC: Denies bleeding disorders. GENITOURINARY: Denies any blood in urine. SKIN: Denies pruitis. Denies rash. PHYSICAL EXAM: VITAL SIGNS: Reviewed. GENERAL: Well-developed in no acute distress. HEENT: Head is normocephalic. Pupils are equal, round. Sclerae anicteric. Mucous membranes of the mouth are moist. Neck supple. No JVD or thyromegaly LUNGS: Respirations even and unlabored. Lungs essentially clear to auscultation bilaterally. HEART: Regular rate and rhythm. S1 and S2 heard. ABDOMEN: Soft. Nondistended. Nontender. EXTREMITIES: Normal range of motion. No clubbing or cyanosis. Peripheral pulses intact. No lower extremity edema NEUROLOGIC: Awake and alert. Oriented x 3. ASSESSMENT: Hypotension, may be secondary to recently beginning Zaroxolyn Paroxysmal atrial fibrillation, on long-term anticoagulation with Coumadin Coronary artery disease with previous CABG Godinez to LAD, and PCI to circumflex Ischemic cardiomyopathy with previous AICD. EF 30-35% Chronic obstructive pulmonary disease Obstructive sleep apnea Nicotine dependence PLAN: Obtain 2D echo to assess cardiac structure and function Decrease IV fluids to 50cc/hr Discontinue Plavix. Continue Coumadin and aspirin. Give 7.5mg of Coumadin today. Continue IV heparin. Monitor INR. Discontinue Zaroxolyn at discharge Patient may be discharged home today from a cardiac standpoint. Patient to follow-up with Dr. José Nurse practitioner note has been reviewed by physician. Signing provider agrees with the documented findings, assessment, and plan of care. Past Medical History Past Medical History: Coronary Artery Disease (CAD), Cancer, Chest Pain / Angina, Heart Failure, COPD, Diabetes Mellitus, Hyperlipidemia, Hypertension, Myocardial Infarction ([place]), Musculoskeletal Disorder, Pneumonia, Sleep Apnea/CPAP/BIPAP Additional Past Medical History / Comment(s): Cardiomyopathy/AICD, RONN with CPap use, bronchitis, NIDDM type II< chronic low back/bilateral hip/bilateral shoulder pain, bladder cancer with surgeries. Last Myocardial Infarction Date:: 01/2019 History of Any Multi-Drug Resistant Organisms: None Reported Past Surgical History: AICD, Bladder Surgery, Coronary Bypass/CABG, Heart Catheterization With Stent Additional Past Surgical History / Comment(s): PCIs with stents in , 2017 CABG 1 vessel, AICD 2018, DFTs, 2019 cystos/TURBs/BCG instillation, colonoscopy, hemorrhoidectomy. Past Anesthesia/Blood Transfusion Reactions: No Reported Reaction Date of Last Stent Placement:: 2018 Type of Cardiac Device: AICD Device Placement Date:: 09/28/17 Smoking Status: Current every day smoker - Past Family History Father Family Medical History: Cancer Additional Family Medical History / Comment(s): bone cancer Mother Family Medical History: Coronary Artery Disease (CAD), Diabetes Mellitus Additional Family Medical History / Comment(s): Mother had a [place] in her 40s and had CABG Brother(s) Family Medical History: Coronary Artery Disease (CAD), Diabetes Mellitus Medications and Allergies Home Medications Medication Instructions Recorded Confirmed Type Isosorbide Mononitrate ER [Imdur] 30 mg PO DAILY #30 tab.er.24h 02/13/17 12/27/19 Rx Losartan [Cozaar] 50 mg PO DAILY #30 tab 02/13/17 12/27/19 Rx Empagliflozin/Linagliptin 1 tab PO DAILY 08/27/17 12/27/19 History [Glyxambi 25 mg-5 mg Tablet] FLUoxetine HCL 20 mg PO DAILY 08/27/17 12/27/19 History Spironolactone [Aldactone] 25 mg PO DAILY #90 tablet 09/29/17 12/27/19 Rx Atorvastatin [Lipitor] 80 mg PO HS 03/12/18 12/27/19 History Hydrocodone/Acetaminophen [[place] 1 tab PO TID PRN 06/30/18 12/27/19 History 10-325] Aspirin 81 mg PO DAILY #30 chew 07/08/18 12/27/19 Rx Nitroglycerin Sl Tabs [Nitrostat] 0.4 mg SUBLINGUAL Q5M PRN #100 tab 07/08/18 12/27/19 Rx Clopidogrel [Plavix] 75 mg PO DAILY 11/29/18 12/27/19 History Umeclidinium Brm/Vilanterol Tr 1 puff INHALATION RT-DAILY 11/29/18 12/27/19 History [Anoro Ellipta 62.5-25 Mcg INH] Furosemide [Lasix] 40 mg PO BID@0800,1400 01/03/19 12/27/19 History Amiodarone [Cordarone] 200 mg PO DAILY 12/27/19 12/27/19 History Carvedilol [Coreg] 25 mg PO BID 12/27/19 12/27/19 History Repaglinide [Prandin] 0.5 mg PO BID 12/27/19 12/27/19 History Warfarin Sodium [Jantoven] 2.5 mg PO SUMOWETHFRSA 12/27/19 12/27/19 History Warfarin Sodium [Jantoven] 5 mg PO TU 12/27/19 12/27/19 History dilTIAZem HCL [Diltiazem HCl] 30 mg PO BID 12/27/19 12/27/19 History glipiZIDE [Glucotrol] 10 mg PO AC-BID 12/27/19 12/27/19 History metOLazone [Zaroxolyn] 5 mg PO DAILY 12/27/19 12/27/19 History Allergies Allergy/AdvReac Type Severity Reaction Status Date / Time No Known Allergies Allergy Verified 12/27/19 12:41 Physical Exam Vitals: Vital Signs Temp Pulse Pulse Resp BP BP BP 12/28/19 09:00 97.5 F L 87 16 98/62 12/28/19 04:00 81 16 96/58 12/27/19 23:25 74 16 100/58 12/27/19 19:46 97.6 F 72 16 99/57 12/27/19 16:00 69 12/27/19 14:43 97.3 F L 69 16 98/54 12/27/19 14:03 98.5 F 62 17 96/53 12/27/19 13:00 62 12 98/64 12/27/19 12:15 71 16 93/56 12/27/19 11:54 98 F 60 18 93/57 Pulse Ox 12/28/19 09:00 97 12/28/19 04:00 96 12/27/19 23:25 96 12/27/19 19:46 96 12/27/19 16:00 12/27/19 14:43 100 12/27/19 14:03 97 12/27/19 13:00 100 12/27/19 12:15 12/27/19 11:54 100 Intake and Output 12/27/19 12/28/19 12/28/19 22:59 06:59 14:59 Intake Total 193.397 68.013 563.575 Balance 193.397 68.013 563.575 Intake: Intake, IV Titration 73.397 68.013 83.575 Amount Heparin Sod,Pork in 0.45% 73.397 68.013 83.575 NaCl 25,000 unit In 0.45 % NaCl 1 250ml.bag @ 12 UNITS/KG/HR 9.743 mls/hr IV .Q24H [facility] Rx#: [id number] Oral 120 480 Other: # Voids 2 2 Weight 82.6 kg Results 12/28/19 08:22 12/28/19 08:22 Cardiac Enzymes 12/27/19 12/27/19 Range/Units 12:19 12:19 AST 50 (17-59) U/L Troponin I 0.021 (0.000-0.034) ng/mL Coagulation 12/27/19 12/27/19 12/28/19 Range/Units 12:19 19:17 02:37 PT 11.9 (9.0-12.0) sec APTT 24.6 39.0 H 35.8 H (22.0-30.0) sec 12/28/19 Range/Units 08:22 PT 11.6 (9.0-12.0) sec APTT 43.5 H (22.0-30.0) sec CBC 12/27/19 12/28/19 Range/Units 12:19 08:22 WBC 8.3 6.8 (3.8-10.6) k/uL RBC 5.59 4.93 (4.30-5.90) m/uL Hgb 13.5 11.9 L (13.0-17.5) gm/dL Hct 44.2 39.7 (39.0-53.0) % Plt Count 223 165 (150-450) k/uL Comprehensive Metabolic Panel 12/27/19 12/28/19 Range/Units 12:19 08:22 Sodium 136 L 134 L (137-145) mmol/L Potassium 4.8 4.8 (3.5-5.1) mmol/L Chloride 99 100 (98-107) mmol/L Carbon Dioxide 25 25 (22-30) mmol/L BUN 40 H 38 H (9-20) mg/dL Creatinine 1.15 1.00 (0.66-1.25) mg/dL Glucose 314 H 319 H (74-99) mg/dL Calcium 9.1 8.1 L (8.4-10.2) mg/dL AST 50 (17-59) U/L ALT 63 H (4-49) U/L Alkaline Phosphatase 114 (38-126) U/L Total Protein 7.3 (6.3-8.2) g/dL Albumin 4.3 (3.5-5.0) g/dL Current Medications Generic Name Dose Route Start Last Admin Trade Name Ludmila PRN Reason Stop Dose Admin Hydrocodone Bitart/Acetaminophen 1 each 12/27/19 16:37 12/28/19 04:01 Hydrocodone/Apap 10-325mg 1 Each Tab PO 1 each TID PRN Administration Pain Amiodarone HCl 200 mg 12/28/19 09:00 12/28/19 09:40 Amiodarone 200 Mg Tab PO 200 mg DAILY DENIS Administration Aspirin 81 mg 12/28/19 09:00 12/28/19 09:40 Aspirin 81 Mg PO 81 mg DAILY DENIS Administration Atorvastatin Calcium 80 mg 12/27/19 21:00 12/27/19 19:45 Atorvastatin 80 Mg Tab PO 80 mg HS DENIS Administration Carvedilol 25 mg 12/27/19 17:30 12/28/19 06:09 Carvedilol 12.5 Mg Tab PO 25 mg BID-W/MEALS DENIS Administration Fluoxetine HCl 20 mg 12/28/19 09:00 12/28/19 09:40 Fluoxetine Hcl 20 Mg Cap PO 20 mg DAILY DENIS Administration Heparin Sodium (Porcine) 0 unit 12/27/19 13:21 Heparin Sodium,Porcine 5,000 Unit/Ml 1 Ml Vial IV PER PROTOCOL PRN Low PTT Protocol Heparin Sodium/Sodium Chloride 250 mls @ 9.743 mls/hr 12/27/19 13:30 12/28/19 09:41 25,000 unit/ Sodium Chloride IV 16 units/kg/hr .Q24H DENIS 12.991 mls/hr Administration Protocol 12 UNITS/KG/HR Isosorbide Mononitrate 30 mg 12/28/19 09:00 12/28/19 09:40 Isosorbide Mononitrate Er 30 Mg Tab.Er.24h PO 30 mg DAILY DENIS Administration Miscellaneous Information 1 each 12/27/19 13:26 Warfarin Per Pharmacy MISCELLANE DIRECTED PRN Per Protocol Protocol Naloxone HCl 0.2 mg 12/27/19 13:24 Naloxone 0.4 Mg/Ml 1 Ml Vial IV Q2M PRN Opioid Reversal Warfarin Sodium 7.5 mg 12/28/19 18:00 Warfarin 7.5 Mg Tab PO 12/28/19 18:01 ONCE@1800 ONE Protocol Intake and Output 12/27/19 12/28/19 12/28/19 22:59 06:59 14:59 Intake Total 193.397 68.013 563.575 Balance 193.397 68.013 563.575 Intake: Intake, IV Titration 73.397 68.013 83.575 Amount Heparin Sod,Pork in 0.45% 73.397 68.013 83.575 NaCl 25,000 unit In 0.45 % NaCl 1 250ml.bag @ 12 UNITS/KG/HR 9.743 mls/hr IV .Q24H [facility] Rx#: [id number] Oral 120 480 Other: # Voids 2 2 Weight 82.6 kg 12/28/19 08:22 12/28/19 08:22
[2019-12-28 11:48] VITALS: BP 111/73; PULSE 62
[2019-12-28 12:27] LABS: Glucose,Whole Blood 274 mg/dL (75-99)
--- NOTE | 2019-12-28 15:27 | HP ---
HISTORY AND PHYSICAL This is a 59-year-old white male who came in with severe hypotension of 60/40 standing and 80/40 while sitting down, atrial fibrillation with flutter on EKG and severe hypotension. He was admitted to the hospital for monitoring with cardiology consult. Cardiology reviewed everything, but no orthostatics have been checked. Blood pressure medications were stopped, including Zaroxolyn. While patient was in the hospital they readjusted his medications. MEDICATIONS: See list. REVIEW OF SYSTEMS: Fourteen-point review of systems negative except for mentioned in HPI. ASSESSMENT: 1. Orthostatic hypotension. 2. Paroxysmal atrial fibrillation. 3. Coronary artery disease. 4. Previous coronary artery bypass grafting. 5. Ischemic cardiomyopathy. 6. Chronic obstructive pulmonary disease. 7. Severe orthostatic hypotension. 8. Atrial fibrillation versus atrial flutter. 9. Obstructive sleep apnea. 10.Nicotine addiction. Wait for cardiology recommendations. Hold Zaroxolyn medicines until Cardiology reassesses the patient. MMODL / IJN: [id number] /
--- NOTE | 2019-12-28 16:33 | DS ---
DISCHARGE SUMMARY DISCHARGE MEDICINES: 1. Imdur 30 daily. 2. Cozaar 50 daily. 3. Glyxambi 25/5 daily. 4. Fluoxetine 20 daily. 5. Aldactone 25 daily. 6. Lipitor 80 daily. 7. [place] 10/325 t.i.d. 8. Aspirin 81 mg daily. 9. Nitroglycerin sublingually daily. 10.Anoro Ellipta 1 puff daily. 11.Lasix 40 b.i.d. 12.Diltiazem 30 b.i.d. 13.Coreg 25 b.i.d. 14.Cordarone 200 daily. 15.Glucotrol 10 b.i.d. 16.Coumadin 5 mg on Tuesdays, 2.5 on Thursday, Thursday, Thursday, , Thursday. Follow up in the office in 2-3 days. CONDITION: Stable. PROGNOSIS: Guarded. DISCHARGE DIAGNOSES: 1. Atrial fibrillation versus atrial flutter. 2. Severe orthostatic hypotension. 3. Prerenal renal insufficiency. 4. Severe dehydration. 5. Hypotension. 6. History of bladder cancer. 7. History of ischemic cardiomyopathy with congestive heart failure. 8. Coronary artery disease. 9. Bay-ZZ-eikumqa-elevation myocardial infarction. 10.History of heart stents. 11.Dyslipidemia. 12.Nicotine addiction. Patient was admitted with severe orthostatic hypotension, severe dehydration. Zaroxolyn was discontinued. Atrial fibrillation and flutter were reassessed by Cardiology. They said to withhold Zaroxolyn on discharge. After fluid rehydration overnight the patient stabilized his blood pressure and his arrhythmias. Cardiology cleared him for discharge. He will follow up as an outpatient in my office next within 2-3 days. His creatinine on admission was 3-something, and 1.0 on discharge. He is greatly improved. He can follow up in the outpatient setting. His cortisol level is 7. MMODL / IJN: [id number] /
[2019-12-28] MEDS ORDERED: WARFARIN 7.5 MG TAB PO ONE (18:00)
[2019-12-28] MEDS ORDERED: WARFARIN 5 MG TAB PO ONE (18:00)
--- NOTE | 2019-12-28 19:00 | ECHOF ---
Referral Reason:lv function MEASUREMENTS -------- HEIGHT: 180.3 cm WEIGHT: 81.6 kg BP: IVSd: 1.3 cm (0.6 - 1.1) LVIDd: 5.5 cm (3.9 - 5.3) LVPWd: 1.2 cm (0.6 - 1.1) IVSs: 1.3 cm LVIDs: 4.9 cm LVPWs: 1.3 cm LAESV Index (A-L): 27.44 ml/m Ao Diam: 3.0 cm (2.0 - 3.7) AV Cusp: 1.2 cm (1.5 - 2.6) LA Diam: 3.1 cm (2.7 - 3.8) MV EXCURSION: 21.171 mm (> 18.000) MV EF SLOPE: 125 mm/s (70 - 150) EPSS: 1.4 cm MV E Augustin: 1.40 m/s MV DecT: 232 ms MV A Augustin: 0.25 m/s MV E/A Ratio: 5.53 AV maxP.14 mmHg AV meanP.79 mmHg RAP: 5.00 mmHg RVSP: 42.29 mmHg FINDINGS -------- AICD This was a technically difficult study with suboptimal views. The left ventricular size is normal. There is mild concentric left ventricular hypertrophy. Overa ll left ventricular systolic function is moderate-severely impaired with, an EF between 30 - 35 %. Basal inferior LV wall motion is hypokinetic. Basal inferoseptal LV wall motion is hypokinetic. Mid anterior LV wall motion is hypokinetic. Mid lateral LV wall motion is hypokinetic. Apical Mid and Basal anterior LV wall motion is hypokinetic. Apical lateral LV wall motion is hypokineti c. Apical inferior LV wall motion is hypokinetic. Apical septum LV wall motion is hypokinetic. The right ventricle is normal in size. The left atrial size is normal. Normal LA size by volume 22+/-6 ml/m2. The right atrial size is normal. Lumason used Aortic valve is trileaflet and is mildly thickened. There is mild aortic valve sclerosis. Peak/me an gradient across the Aortic Valve is 14.14mmHg / 7.79mmHg. The mitral valve is normal. Mild mitral regurgitation is present. The tricuspid valve appears structurally normal. Mild tricuspid regurgitation present. There is m ild pulmonary hypertension. The right ventricular systolic pressure, as measured by Doppler, is 42. 29mmHg. There is no pulmonic regurgitation present. The aortic root size is normal. IVC Not well visulized. There is no pericardial effusion. CONCLUSIONS -------- 1. AICD 2. The left ventricular size is normal. 3. There is mild concentric left ventricular hypertrophy. 4. Overall left ventricular systolic function is moderate-severely impaired with, an EF between 30 - 35 %. 5. Basal inferior LV wall motion is hypokinetic. 6. Basal inferoseptal LV wall motion is hypokinetic. 7. Mid anterior LV wall motion is hypokinetic. 8. Mid lateral LV wall motion is hypokinetic. 9. Apical anterior LV wall motion is hypokinetic. 10. Apical lateral LV wall motion is hypokinetic. 11. Apical inferior LV wall motion is hypokinetic. 12. Apical septum LV wall motion is hypokinetic. 13. Aortic valve is trileaflet and is mildly thickened. 14. There is mild aortic valve sclerosis. 15. Peak/mean gradient across the Aortic Valve is 14.14mmHg / 7.79mmHg. 16. Mild mitral regurgitation is present. 17. Mild tricuspid regurgitation present. 18. There is mild pulmonary hypertension. 19. The right ventricular systolic pressure, as measured by Doppler, is 42.29mmHg. 20. There is no pericardial effusion. CORE DRILLER: Mariann Ngo RDCS
[2019-12-29 10:46] LABS: Hemoglobin A1C 9.2 % (4.0-6.0)
== END 2019-12-28 16:21 | disposition home or self-care (01) | DRG 281 ==
LOC: EC 11:53 → 3SCARD 13:24
PROVIDERS: ADMIT Family Medicine; ATTEND Family Medicine
DX: I48.0 Paroxysmal atrial fibrillation (principal); I21.4 Non-ST elevation (NSTEMI) myocardial infarction; E87.2 Acidosis; I48.92 Unspecified atrial flutter; D75.89 Other specified diseases of blood and blood-forming organs; E11.9 Type 2 diabetes mellitus without complications; E78.5 Hyperlipidemia, unspecified; E86.0 Dehydration; F17.210 Nicotine dependence, cigarettes, uncomplicated; I25.5 Ischemic cardiomyopathy; I25.10 Atherosclerotic heart disease of native coronary artery without angina pectoris; G47.33 Obstructive sleep apnea (adult) (pediatric); I50.9 Heart failure, unspecified; I25.2 Old myocardial infarction; I11.0 Hypertensive heart disease with heart failure; J44.9 Chronic obstructive pulmonary disease, unspecified; N28.9 Disorder of kidney and ureter, unspecified; R79.1 Abnormal coagulation profile; Z79.01 Long term (current) use of anticoagulants; Z79.02 Long term (current) use of antithrombotics/antiplatelets; Z79.82 Long term (current) use of aspirin; Z79.84 Long term (current) use of oral hypoglycemic drugs; I95.2 Hypotension due to drugs; Z79.899 Other long term (current) drug therapy; Z82.49 Family history of ischemic heart disease and other diseases of the circulatory system; Z83.3 Family history of diabetes mellitus; Z85.51 Personal history of malignant neoplasm of bladder; Z99.89 Dependence on other enabling machines and devices; Z95.1 Presence of aortocoronary bypass graft; Z95.5 Presence of coronary angioplasty implant and graft; Z95.810 Presence of automatic (implantable) cardiac defibrillator; T50.2X5A Adverse effect of carbonic-anhydrase inhibitors, benzothiadiazides and other diuretics, initial encounter
CPT/HCPCS: 36415; 71045; 80048; 80053; 82330; 82533; 83036; 83605; 83735; 84443; 84484; 85025; 85610; 85730; 93005; 93306; 96365; 96376; 99285

== ENCOUNTER → 2020-01-09 | Outpatient (CLI) | payer MEDICARE, OTHER ==
[2020-01-09 18:47] LABS: African American GFR (CKD) 76.8 (60.0-200.0); Anion Gap 4.8 mmol/L (4.00-12.00); BUN/Creat Ratio 33.33 Ratio (12.00-20.00); Calcium 9.7 mg/dL (8.7-10.3); Carbon Dioxide 29.2 mmol/L (21.6-31.8); Non-African American GFR(CKD) 66.3 (60.0-200.0); Potassium 5.5 mmol/L (3.5-5.5)
== END | disposition home or self-care (01) ==
LOC: LABWHC1 10:52
PROVIDERS: ATTEND Internal Medicine Cardiovascular Disease
DX: I25.5 Ischemic cardiomyopathy (principal); I50.22 Chronic systolic (congestive) heart failure; I48.21 Permanent atrial fibrillation; I25.810 Atherosclerosis of coronary artery bypass graft(s) without angina pectoris
CPT/HCPCS: 36415; 80048

== ENCOUNTER → 2020-01-18 | Outpatient (CLI) | payer MEDICARE, OTHER ==
[2020-01-18 11:23] LABS: Anisocytosis Moderate; Basophils # (A) 0.1 k/uL (0-0.2); Basophils % (A) 1 %; Eosinophils # (A) 0.1 k/uL (0-0.7); Eosinophils % (A) 1 %; HGB 13.3 gm/dL (13.0-17.5); Hypochromasia Marked; Lymphocytes # (A) 0.8 k/uL (1.0-4.8); Lymphocytes % (A) 11 %; MCH 26.3 pg (25.0-35.0); MCHC 30.2 g/dL (31.0-37.0); Mean Platelet Volume 7.1; Microcytosis Slight; Monocytes # (A) 0.5 k/uL (0-1.0); Monocytes % (A) 6 %; Neutrophils # (A) 6.4 k/uL (1.3-7.7); Neutrophils % (A) 80 %; Platelet Count 185 k/uL (150-450); RBC 5.06 m/uL (4.30-5.90); RDW 22.7 % (11.5-15.5)
[2020-01-18 15:34] LABS: African American GFR (CKD) 69.2 (60.0-200.0); Anion Gap 7.8 mmol/L (4.00-12.00); BUN/Creat Ratio 23.08 Ratio (12.00-20.00); Calcium 9.1 mg/dL (8.7-10.3); Carbon Dioxide 26.2 mmol/L (21.6-31.8); Non-African American GFR(CKD) 59.7 (60.0-200.0); Potassium 5.8 mmol/L (3.5-5.5)
== END | disposition home or self-care (01) ==
LOC: LABWHC1 09:47
PROVIDERS: ATTEND Urology
DX: C67.9 Malignant neoplasm of bladder, unspecified (principal)
CPT/HCPCS: 36415; 80048; 85025; 93005

== ENCOUNTER → 2020-01-24 | Outpatient (CLI) | payer MEDICARE, OTHER ==
[2020-01-24 10:58] LABS: African American GFR (CKD) >90 (>60 ml/min/1.73 sqM); Anion Gap 8 mmol/L; Blood Urea Nitrogen 25 mg/dL (9-20); Calcium 9.6 mg/dL (8.4-10.2); Carbon Dioxide 25 mmol/L (22-30); Chloride 106 mmol/L (98-107); Glucose 289 mg/dL (74-99); Non-African American GFR(CKD) 90 (>60 ml/min/1.73 sqM); Potassium 5.4 mmol/L (3.5-5.1); Sodium 139 mmol/L (137-145)
== END | disposition home or self-care (01) ==
LOC: LABWHC1 09:33
PROVIDERS: ATTEND Urology
DX: E87.5 Hyperkalemia (principal)
CPT/HCPCS: 36415; 80048

== ENCOUNTER → 2020-03-08 | Outpatient (CLI) | payer MEDICARE, OTHER ==
[2020-03-08 22:37] LABS: African American GFR (CKD) 69.2 (60.0-200.0); Anion Gap 10.5 mmol/L (4.00-12.00); Calcium 9.7 mg/dL (8.7-10.3); Carbon Dioxide 25.5 mmol/L (21.6-31.8); Non-African American GFR(CKD) 59.7 (60.0-200.0); Potassium 5.1 mmol/L (3.5-5.5)
== END | disposition home or self-care (01) ==
LOC: LABWHC1 11:08
PROVIDERS: ATTEND Internal Medicine Cardiovascular Disease
DX: I50.22 Chronic systolic (congestive) heart failure (principal)
CPT/HCPCS: 36415; 80048

== ENCOUNTER → 2020-04-16 | Outpatient (CLI) | payer MEDICARE, OTHER ==
[2020-04-17 02:01] LABS: African American GFR (CKD) 95.1 (60.0-200.0); Anion Gap 10.8 mmol/L (4.00-12.00); Calcium 8.9 mg/dL (8.7-10.3); Carbon Dioxide 23.2 mmol/L (21.6-31.8); Potassium 4.3 mmol/L (3.5-5.5)
== END | disposition home or self-care (01) ==
LOC: LABWHC1 14:43
PROVIDERS: ATTEND Internal Medicine Cardiovascular Disease
DX: I50.22 Chronic systolic (congestive) heart failure (principal)
CPT/HCPCS: 36415; 80048

== ENCOUNTER → 2020-05-04 | Outpatient (CLI) | payer MEDICARE, OTHER ==
[2020-05-04 12:04] LABS: Appearance,Urine Clear (Clear); Bilirubin,Urine Negative (Negative); Blood,Urine Negative (Negative); Color,Urine Yellow; Glucose,Urine (UA) Negative (Negative); Hyaline Casts,Urine 1 /lpf (0-2); Ketones,Urine Negative (Negative); Leukocyte Esterase,Urine Negative (Negative); Mucus,Urine Rare /hpf; Nitrite,Urine Negative (Negative); PH, Urine 5.5 (5.0-8.0); Protein,Urine 1+ (Negative); RBC,Urine 2 /hpf (0-5); Specific Gravity,Urine 1.018 (1.001-1.035); Squamous Epithelial Cell,Urine <1 /hpf (0-4); Urobilinogen,Urine <2.0 mg/dL (<2.0); WBC,Urine 1 /hpf (0-5)
[2020-05-04 20:50] LABS: African American GFR (CKD) 84.7 (60.0-200.0); Anion Gap 6.9 mmol/L (4.00-12.00); BUN/Creat Ratio 23.64 Ratio (12.00-20.00); Calcium 8.6 mg/dL (8.7-10.3); Carbon Dioxide 28.1 mmol/L (21.6-31.8); Non-African American GFR(CKD) 73.1 (60.0-200.0); Potassium 4.1 mmol/L (3.5-5.5)
[2020-05-04 21:06] LABS: Basophils # (A) 0.05 X 10*3/uL (0.00-0.10); Basophils % (A) 0.7 %; Eosinophils # (A) 0.07 X 10*3/uL (0.04-0.35); HCT 39.3 % (39.6-50.0); HGB 11.4 g/dL (13.0-17.0); Lymphocytes # (A) 0.73 X 10*3/uL (0.90-5.00); Lymphocytes % (A) 10.1 %; MCH 26.4 pg (27.0-32.0); Mean Platelet Volume 10.6 fL (9.5-12.2); Monocytes # (A) 0.51 X 10*3/uL (0.20-1.00); Neutrophils # (A) 5.83 X 10*3/uL (1.80-7.70); Neutrophils % (A) 80.5 %; Platelet Count 180 X 10*3/uL (140-440); RBC 4.32 X 10*6/uL (4.40-5.60); RDW 16.1 % (11.5-14.5); WBC 7.24 X 10*3/uL (4.50-10.00)
== END | disposition home or self-care (01) ==
LOC: LABWHC1 10:26
PROVIDERS: ATTEND Urology
DX: C67.9 Malignant neoplasm of bladder, unspecified (principal)
CPT/HCPCS: 36415; 80048; 81001; 85025; 87086

== ENCOUNTER 2020-08-21 18:33 | Inpatient (IN) | payer MEDICARE, OTHER ==
--- NOTE | 2020-08-21 18:58 | ED ---
Chest Pain HPI - General Chief Complaint: Chest Pain Stated Complaint: chest pain Time Seen by Provider: 08/21/20 18:44 Source: patient, family, RN notes reviewed Mode of arrival: wheelchair Limitations: no limitations - History of Present Illness Initial Comments: 60-year-old male patient, alert and oriented 4, presents to the emergency room with complaints of left-sided neck and left arm tightness with tingling that started at about 11 or 12:00 today. Patient states he took a nitro and had some relief took a 30 minute nap and woke with pain. took 2 more nitro with some relief. Patient states that he has a history of coronary artery disease, bladder cancer which he received chemo 2 months ago and is due for reevaluation in September, has history of COPD, diabetes, hypertension, hypercholesterolemia, RI with cardiomyopathy, AICD, cardiac catheterizations in 2011, 2016, 2018, and a CABG in 2016. Patient does state he smokes a pack cigarettes a day. Patient denies, pain, nausea, vomiting or chest pain at this time. Denies cough or fevers. Daughter at bedside. She is concerned that he may be having another RI since he had relief with nitroglycerin. MD Complaint: other (Left-sided neck and arm pain and tingling) -: hour(s) (7, at 1100 or 1200 today) Onset: during rest Pain Location: other (Left-sided neck and left arm) Pain Radiation: LUE Severity scale (1-10): 7 Quality: tightness Consistency: intermittent Improves With: nitroglycerin Worsens With: palpation Treatments Prior to Arrival: nitroglycerin - Related Data On Oral Contraceptives: No Home Medications Medication Instructions Recorded Confirmed FLUoxetine HCL [Sarafem] 20 mg PO DAILY 08/27/17 08/21/20 Atorvastatin [Lipitor] 80 mg PO HS 03/12/18 08/21/20 Hydrocodone/Acetaminophen [[place] 1 tab PO QID 06/30/18 08/21/20 10-325] Umeclidinium Brm/Vilanterol Tr 1 puff INHALATION RT-DAILY 11/29/18 08/21/20 [Anoro Ellipta 62.5-25 Mcg INH] Furosemide [Lasix] 20 mg PO BID@0800,1400 01/03/19 08/21/20 Carvedilol [Coreg] 25 mg PO BID 12/27/19 08/21/20 Warfarin Sodium [Jantoven] 2.5 mg PO SUMOWEFR@2100 12/27/19 08/21/20 Warfarin Sodium [Jantoven] 5 mg PO TUTHSA@2100 12/27/19 08/21/20 dilTIAZem HCL [Diltiazem HCl] 30 mg PO TID 12/27/19 08/21/20 glipiZIDE [Glucotrol] 10 mg PO BID 12/27/19 08/21/20 Losartan [Cozaar] 25 mg PO DAILY 08/21/20 08/21/20 Nitroglycerin Sl Tabs [Nitrostat] 0.4 mg SL Q5M PRN 08/21/20 08/21/20 Semaglutide [Ozempic] 0.25 mg SQ WE 08/21/20 08/21/20 metOLazone [Zaroxolyn] 5 mg PO WE 08/21/20 08/21/20 Previous Rx's Medication Instructions Recorded Isosorbide Mononitrate ER [Imdur] 30 mg PO DAILY #30 tab.er.24h 02/13/17 Spironolactone [Aldactone] 25 mg PO DAILY #90 tablet 09/29/17 Aspirin 81 mg PO DAILY #30 chew 07/08/18 Allergies Allergy/AdvReac Type Severity Reaction Status Date / Time No Known Allergies Allergy Verified 08/21/20 19:17 Review of Systems ROS Statement: Those systems with pertinent positive or pertinent negative responses have been documented in the HPI. ROS Other: All systems not noted in ROS Statement are negative. EKG Findings - EKG Results: EKG: sinus rhythm (Sinus tach at 115, PA 0.290 first degree AV block, QRS of 0.96, QTC 0.503 prolonged), not changed from: (01/18/2020) Past Medical History Past Medical History: Coronary Artery Disease (CAD), Cancer, Chest Pain / Angina, Heart Failure, COPD, Diabetes Mellitus, Hyperlipidemia, Hypertension, Myocardial Infarction (RI), Musculoskeletal Disorder, Pneumonia, Sleep Apnea/CPAP/BIPAP Additional Past Medical History / Comment(s): Cardiomyopathy/AICD, RONN with CPap use, bronchitis, NIDDM type II< chronic low back/bilateral hip/bilateral shoulder pain, bladder cancer with surgeries. Last Myocardial Infarction Date:: 01/2019 History of Any Multi-Drug Resistant Organisms: None Reported Past Surgical History: AICD, Bladder Surgery, Coronary Bypass/CABG, Heart Catheterization With Stent Additional Past Surgical History / Comment(s): PCIs with stents in , 2017 CABG 1 vessel, AICD 2018, DFTs, 2019 cystos/TURBs/BCG instillation, colonoscopy, hemorrhoidectomy. Past Anesthesia/Blood Transfusion Reactions: No Reported Reaction Date of Last Stent Placement:: 2018 Type of Cardiac Device: AICD Device Placement Date:: 09/28/17 Past Psychological History: Depression Smoking Status: Current every day smoker Past Alcohol Use History: None Reported Past Drug Use History: None Reported - Past Family History Father Family Medical History: Cancer Additional Family Medical History / Comment(s): bone cancer Mother Family Medical History: Coronary Artery Disease (CAD), Diabetes Mellitus Additional Family Medical History / Comment(s): Mother had a RI in her 40s and had CABG Brother(s) Family Medical History: Coronary Artery Disease (CAD), Diabetes Mellitus General Exam Limitations: no limitations General appearance: alert, in no apparent distress Head exam: Present: atraumatic, normocephalic, normal inspection Eye exam: Present: normal appearance, PERRL, EOMI. Absent: scleral icterus, conjunctival injection, periorbital swelling Pupils: Present: normal accommodation ENT exam: Present: normal exam, normal oropharynx, mucous membranes moist Neck exam: Present: normal inspection, full ROM, other (Pain with palpation along the left sternocleidomastoid muscle and left trapezius muscle ). Absent: tenderness, meningismus, lymphadenopathy Respiratory exam: Present: normal lung sounds bilaterally. Absent: respiratory distress, wheezes, rales, rhonchi, stridor, chest wall tenderness, accessory muscle use, decreased breath sounds Cardiovascular Exam: Present: tachycardia GI/Abdominal exam: Present: soft, normal bowel sounds. Absent: distended, tenderness, guarding, rebound, rigid Rectal exam: Present: deferred Extremities exam: Present: normal inspection, full ROM, normal capillary refill. Absent: tenderness, pedal edema, joint swelling, calf tenderness Back exam: Present: normal inspection, full ROM. Absent: CVA tenderness (R), CVA tenderness (L), paraspinal tenderness, vertebral tenderness, rash noted Neurological exam: Present: alert, oriented X3, CN II-XII intact Psychiatric exam: Present: normal affect, normal mood Skin exam: Present: warm, dry, intact, normal color. Absent: rash, cyanosis, diaphoretic, erythema, petechiae, pallor Course Vital Signs 08/21/20 08/21/20 18:39 20:57 Temperature 97.4 F L 97.7 F Pulse Rate 116 H 98 Respiratory 20 18 Rate Blood Pressure 132/85 120/80 O2 Sat by Pulse 100 96 Oximetry Chest Pain MDM - MDM WBC count 6.2, hemoglobin and hematocrit is 11.3 and 34.8, troponin is negative at 0.016. Chest x-ray is consistent with COPD with small posterior pleural fluid, mild cardiomegaly. Patient has a significant cardiac history of coronary artery disease, bladder cancer, COPD, diabetes, hypertension, hypercholesterolemia, RI with a heart catheterization in 2011 2017 in 2019. CABG in 2017 with an AICD. Patient did get relief with nitroglycerin at home. Patient had some relief with Norflex stating left arm numbness little better. Heart rate down to 99 on residential monitor. Patient be admitted to observation, chest pain rule out ACS. Case discussed with Dr. Cote, will admit to Dr. An's group. - Wells Criteria Clinical Symptoms of DVT: (0) No No Alternative Diagnosis: (0) No Immobilization of Surgery in Previous 4 Weeks: (0) No Previous DVT/PE: (0) No Hemoptysis: (0) No Malignancy: (1.0) Yes Disposition Clinical Impression: Chest pain Disposition: ADMITTED IP TO THIS [facility] Condition: Good Referrals: Mike Olivera MD [Primary Care Provider] - 1-2 days Decision Date: 08/21/20 Decision Time: 21:14
[2020-08-21] MEDS ORDERED: SODIUM CHLORIDE 0.9% 500 ML 500 ML IV STA (19:10)
[2020-08-21] MEDS ORDERED: ORPHENADRINE 30 MG/ML 2 ML VIAL IM STA (19:11)
[2020-08-21] MEDS ORDERED: KETOROLAC 15 MG/ML 1 ML VIAL IVP STA (19:12)
[2020-08-21 20:00] LABS: INR 1.2 (<1.2); Partial Thromboplastin Time 23.5 sec (22.0-30.0); Prothrombin Time 12.7 sec (9.0-12.0)
[2020-08-21 20:04] LABS: ALT 14 U/L (4-49); AST 21 U/L (17-59); African American GFR (CKD) >90 (>60 ml/min/1.73 sqM); Albumin 3.8 g/dL (3.5-5.0); Alkaline Phosphatase 123 U/L (38-126); Anion Gap 7 mmol/L; Blood Urea Nitrogen 17 mg/dL (9-20); Calcium 9.2 mg/dL (8.4-10.2); Carbon Dioxide 26 mmol/L (22-30); Chloride 104 mmol/L (98-107); Glucose 193 mg/dL (74-99); Magnesium 1.9 mg/dL (1.6-2.3); Non-African American GFR(CKD) >90 (>60 ml/min/1.73 sqM); Sodium 137 mmol/L (137-145); Total Bilirubin 0.8 mg/dL (0.2-1.3); Total Protein 6.6 g/dL (6.3-8.2)
[2020-08-21 20:09] LABS: Anisocytosis Slight; Basophils # (A) 0.1 k/uL (0-0.2); Basophils % (A) 1 %; Eosinophils # (A) 0.1 k/uL (0-0.7); Eosinophils % (A) 1 %; HCT 34.8 % (39.0-53.0); HGB 11.3 gm/dL (13.0-17.5); Hypochromasia Slight; Lymphocytes # (A) 1.1 k/uL (1.0-4.8); Lymphocytes % (A) 18 %; MCH 27.1 pg (25.0-35.0); MCHC 32.6 g/dL (31.0-37.0); Mean Platelet Volume 7.1; Microcytosis Slight; Monocytes # (A) 0.4 k/uL (0-1.0); Monocytes % (A) 7 %; Neutrophils # (A) 4.5 k/uL (1.3-7.7); Neutrophils % (A) 72 %; Platelet Count 183 k/uL (150-450); RBC 4.19 m/uL (4.30-5.90); RDW 19.1 % (11.5-15.5); WBC 6.2 k/uL (3.8-10.6)
--- NOTE | 2020-08-21 20:53 | XR ---
EXAMINATION TYPE: XR chest 2V DATE OF EXAM: 08/21/2020 COMPARISON: 12/27/2019 INDICATION: Chest pain TECHNIQUE: Frontal and lateral views of the chest are obtained. FINDINGS: The heart size is mildly prominent. The pulmonary vasculature is prominent. Suspicious focal consolidation is not evident. Small posterior pleural fluid is present. There is hyp erinflation flattening diaphragms compatible with COPD.. IMPRESSION: 1. Posterior pleural fluid. 2. COPD. 3. Mild cardiomegaly with prominent pulmonary vascular markings. Correlate for CHF.
[2020-08-21] MEDS ORDERED: NALOXONE 0.4 MG/ML 1 ML VIAL IV PRN (21:24)
[2020-08-21] MEDS ORDERED: ACETAMINOPHEN TAB 325 MG TAB PO PRN (21:24)
[2020-08-21] MEDS ORDERED: HYDROcodone/APAP 10-325MG 1 EACH TAB PO ONE (21:33)
[2020-08-21] MEDS: SODIUM CHLORIDE 0.9% 1,000 ML IV SCH (23:17)
[2020-08-22] MEDS: HYDROcodone/APAP 10-325MG 1 EACH TAB PO PRN ×3 (06:02→20:17)
[2020-08-22 06:58] LABS: Glucose,Whole Blood 236 mg/dL (75-99)
[2020-08-22] MEDS ORDERED: NITROGLYCERIN SL TABS 0.4 MG TAB SUBLINGUAL PRN (07:56)
[2020-08-22] MEDS ORDERED: metOLazone 5 MG TAB PO SCH (08:00)
[2020-08-22] MEDS: DILTIAZEM ORAL 30 MG TAB PO SCH ×3 (08:41→21:17)
[2020-08-22] MEDS: SPIRONOLACTONE 25 MG TAB PO SCH (08:48)
[2020-08-22] MEDS: INSULIN ASPART (NovoLOG) 100 UNIT/ML VIAL SQ SCH ×4 (08:48→21:17)
[2020-08-22] MEDS: ISOSORBIDE MONONITRATE ER 30 MG TAB.ER.24H PO SCH (08:48)
[2020-08-22] MEDS: FUROSEMIDE 20 MG TAB PO SCH ×2 (08:49→14:52)
[2020-08-22] MEDS: FLUoxetine HCL 20 MG CAP PO SCH (08:49)
[2020-08-22 08:56] LABS: INR 1.3 (<1.2); Prothrombin Time 13.7 sec (9.0-12.0)
[2020-08-22] MEDS ORDERED: ASPIRIN 81 MG PO SCH (09:00)
[2020-08-22] MEDS: carvediloL 12.5 MG TAB PO SCH ×2 (09:37→20:17)
[2020-08-22] MEDS: LOSARTAN 25 MG TAB PO SCH (09:37)
[2020-08-22] MEDS ORDERED: HEPARIN SODIUM 1,000 UN/ML (10ML VL) IV ONE (10:53)
[2020-08-22] MEDS ORDERED: ALPRAZolam 0.5 MG TAB PO PRN (10:54)
[2020-08-22] MEDS ORDERED: ALPRAZolam 0.25 MG TAB PO PRN (10:54)
--- NOTE | 2020-08-22 11:09 | P.CRDCN ---
<Nat Del Toro Jovany - Last Filed: 08/22/20 11:08> History of Present Illness History of present illness: HISTORY OF PRESENTING ILLNESS This is a pleasant 60-year-old male past medical history significant for coronary artery disease status post single-vessel bypass grafting in 2017, PCI to the LAD and circumflex, ischemic cardiomyopathy status post AICD, chronic systolic heart failure, paroxysmal atrial fibrillation on warfarin, hypertension, diabetes mellitus, dyslipidemia and former nicotine dependence. He follows in the office with Dr. José. We have been asked to see in consultation for chest pain. He presented to the hospital with symptoms of discomfort in the left neck that radiated to the left shoulder and causes numbness and tingling down the left arm. This occurred at rest. He did take a sublingual nitroglycerin which did achieve some relief. He was able to lay down and take a nap. When he woke up he continued to have discomfort and took 2 more nitroglycerin. On arrival to the emergency department he was still having some discomfort in the left neck and tingling down the left arm. He denies any heaviness in the chest. He was given some Toradol which did mildly relieve his symptoms. He does have some tenderness on palpation of the left neck. DIAGNOSTICS EKG reveals sinus tachycardia heart rate of 115, T-wave inversion inferiorly and ST depression laterally. Telemetry tracings indicate one run of nonsustained ventricular tachycardia at 1:40 AM. Chest xray posterior pleural fluid, COPD and prominent pulmonary vascular markings. Laboratory reviewed, ABC 6.2, hemoglobin 11.3, platelets 183, INR 1.3, sodium 137, potassium 4, creatinine 0.69, magnesium 1.9, troponin 0.0 16 and 0.035. Current cardiac medications include warfarin, aspirin 81 mg daily, atorvastatin 80 mg daily, Coreg 25 mg twice a day, Lasix 20 mg twice a day, Imdur 30 mg twice a day, losartan 25 mg daily, Aldactone 25 mg daily, diltiazem 30 mg 3 times a day and Zaroxolyn 5 mg on Wednesdays. Most recent echocardiogram obtained December 2019 revealed impaired LV systolic function with ejection fraction 30-35%, basal inferior, basal inferoseptal, mid anterior, mid lateral, apical anterior, apical lateral, apical inferior, apical septal LV wall motion hypokinesia, mild aortic valve stenosis with a mean gradient of 7 mmHg, mild mitral regurgitation, mild tricuspid regurgitation and mild pulmonary hypertension with an RVSP of 42 mmHg. REVIEW OF SYSTEMS At the time of my exam: CONSTITUTIONAL: Denies fever or chills. CARDIOVASCULAR: Denies chest pain, shortness of breath, orthopnea, PND or palp itations. RESPIRATORY: Denies cough. GASTROINTESTINAL: Denies abdominal pain, diarrhea, constipation, nausea or vomiting. MUSCULOSKELETAL: Denies myalgias. NEUROLOGIC: Denies numbness, tingling, headacbe or weakness. ENDOCRINE: Denies fatigue, weight change, polydipsia or polyurina. GENITOURINARY: Denies burning, hematuria or urgency with micturation. HEMATOLOGIC: Denies history of anemia or bleeding. PHYSICAL EXAMINATION Blood pressure 110/80 heart rate 114 afebrile and maintaining oxygen saturation on room air. CONSTITUTIONAL: No apparent distress. HEENT: Head is normocephalic. Pupils are equal, round. Sclerae anicteric. Mucous membranes of the mouth are moist. No JVD. No carotid bruit. CHEST EXAMINATION: Lungs are clear to auscultation. No chest wall tenderness is noted on palpation or with deep breathing. Diminished bilaterally. HEART EXAMINATION: Regular rate and rhythm. S1, S2 heard. Systolic ejection murmur at the base, no gallops or rub. ABDOMEN: Soft, nontender. Positive bowel sounds. EXTREMITIES: 2+ peripheral pulses, no lower extremity edema and no calf tenderness. NEUROLOGIC EXAMINATION: Patient is awake, alert and oriented x3. ASSESSMENT NSTEMI Chest pain Coronary artery disease status post bypass grafting and subsequent [place] vessel PCI Ischemic cardiomyopathy status post AICD Nonsustained ventricular tachycardia Chronic systolic heart failure, clinically euvolemic Paroxysmal atrial fibrillation on warfarin Subtherapeutic INR Hypertension Dyslipidemia Diabetes mellitus COPD Former nicotine dependence PLAN Continue to trend troponins. Obtain 2-D echocardiogram and Doppler study to assess cardiac structure and function. Initiate heparin infusion. Proceed with cardiac catheterization tomorrow morning. I have discussed the risks, benefits and alternative therapies for the above- mentioned procedure and for both sedation/analgesia as well as necessary blood product administration, if indicated, as they pertain to this patient. The patient has indicated understanding and acceptance of the risks and procedures discussed. Questions have been answered appropriately and he is agreeable to move forward with the above stated procedure. Further recommendations to follow based upon clinical course. Thank you kindly for this consultation. Nurse Practitioner note has been reviewed, I agree with a documented findings and plan of care. Patient was seen and examined. Past Medical History Past Medical History: Coronary Artery Disease (CAD), Cancer, Chest Pain / Angina, Heart Failure, COPD, Diabetes Mellitus, Hyperlipidemia, Hypertension, Myocardial Infarction (GA), Musculoskeletal Disorder, Pneumonia, Sleep Apnea/CPAP/BIPAP Additional Past Medical History / Comment(s): Cardiomyopathy/AICD, RONN with CPap use, bronchitis, NIDDM type II< chronic low back/bilateral hip/bilateral shoulder pain, bladder cancer with surgeries. Last Myocardial Infarction Date:: 01/2019 History of Any Multi-Drug Resistant Organisms: None Reported Past Surgical History: AICD, Bladder Surgery, Coronary Bypass/CABG, Heart Catheterization With Stent Additional Past Surgical History / Comment(s): PCIs with stents in , 2017 CABG 1 vessel, AICD 2017, DFTs, 2019 cystos/TURBs/BCG instillation, colonoscopy, hemorrhoidectomy. Past Anesthesia/Blood Transfusion Reactions: No Reported Reaction Date of Last Stent Placement:: 2018 Type of Cardiac Device: AICD Device Placement Date:: 09/28/17 Past Psychological History: Depression Additional Psychological History / Comment(s): Pt has his adult rony residing with him. He has a nebulizer. He no longer checks his glucose, but states he has a glucometer but no other diabetic supplies. Pt can drive. Smoking Status: Current every day smoker Past Alcohol Use History: None Reported Additional Past Alcohol Use History / Comment(s): Pt started smoking in 1976 and quit in 2016 then resumed smoking in 2019 and is a half ppd smoker Past Drug Use History: None Reported Additional Drug Use History / Comment(s): OCC USE ONLY - Past Family History Father Family Medical History: Cancer Additional Family Medical History / Comment(s): bone cancer Mother Family Medical History: Coronary Artery Disease (CAD), Diabetes Mellitus Additional Family Medical History / Comment(s): Mother had a GA in her 40s and had CABG Brother(s) Family Medical History: Coronary Artery Disease (CAD), Diabetes Mellitus Medications and Allergies Home Medications Medication Instructions Recorded Confirmed Type Isosorbide Mononitrate ER [Imdur] 30 mg PO DAILY #30 tab.er.24h 02/13/17 08/21/20 Rx FLUoxetine HCL [Sarafem] 20 mg PO DAILY 08/27/17 08/21/20 History Spironolactone [Aldactone] 25 mg PO DAILY #90 tablet 09/29/17 08/21/20 Rx Atorvastatin [Lipitor] 80 mg PO HS 03/12/18 08/21/20 History Hydrocodone/Acetaminophen [[place] 1 tab PO QID 06/30/18 08/21/20 History 10-325] Aspirin 81 mg PO DAILY #30 chew 07/08/18 08/21/20 Rx Umeclidinium Brm/Vilanterol Tr 1 puff INHALATION RT-DAILY 11/29/18 08/21/20 History [Anoro Ellipta 62.5-25 Mcg INH] Furosemide [Lasix] 20 mg PO BID@0800,1400 01/03/19 08/21/20 History Carvedilol [Coreg] 25 mg PO BID 12/27/19 08/21/20 History Warfarin Sodium [Jantoven] 2.5 mg PO SUMOWEFR@2100 12/27/19 08/21/20 History Warfarin Sodium [Jantoven] 5 mg PO TUTHSA@2100 12/27/19 08/21/20 History dilTIAZem HCL [Diltiazem HCl] 30 mg PO TID 12/27/19 08/21/20 History glipiZIDE [Glucotrol] 10 mg PO BID 12/27/19 08/21/20 History Losartan [Cozaar] 25 mg PO DAILY 08/21/20 08/21/20 History Nitroglycerin Sl Tabs [Nitrostat] 0.4 mg SL Q5M PRN 08/21/20 08/21/20 History Semaglutide [Ozempic] 0.25 mg SQ WE 08/21/20 08/21/20 History metOLazone [Zaroxolyn] 5 mg PO WE 08/21/20 08/21/20 History Allergies Allergy/AdvReac Type Severity Reaction Status Date / Time No Known Allergies Allergy Verified 08/21/20 19:17 Physical Exam Vitals: Vital Signs Temp Pulse Pulse Resp BP BP Pulse Ox 08/22/20 07:00 97.7 F 114 H 18 110/80 95 08/21/20 22:48 97.7 F 116 H 18 114/89 98 08/21/20 21:42 98.1 F 111 H 16 120/78 95 08/21/20 20:57 97.7 F 98 18 120/80 96 08/21/20 18:39 97.4 F L 116 H 20 132/85 100 Intake and Output 08/21/20 08/22/20 08/22/20 22:59 06:59 14:59 Other: Voiding Method Toilet Toilet Urinal Urinal # Voids 1 Weight 83.915 kg Results 08/21/20 19:38 08/21/20 19:38 Cardiac Enzymes 08/21/20 08/21/20 Range/Units 19:38 19:38 AST 21 (17-59) U/L Troponin I 0.016 (0.000-0.034) ng/mL Coagulation 08/21/20 Range/Units 19:38 PT 12.7 H (9.0-12.0) sec APTT 23.5 (22.0-30.0) sec CBC 08/21/20 Range/Units 19:38 WBC 6.2 (3.8-10.6) k/uL RBC 4.19 L (4.30-5.90) m/uL Hgb 11.3 L (13.0-17.5) gm/dL Hct 34.8 L (39.0-53.0) % Plt Count 183 (150-450) k/uL Comprehensive Metabolic Panel 08/21/20 Range/Units 19:38 Sodium 137 (137-145) mmol/L Potassium 4.0 (3.5-5.1) mmol/L Chloride 104 (98-107) mmol/L Carbon Dioxide 26 (22-30) mmol/L BUN 17 (9-20) mg/dL Creatinine 0.69 (0.66-1.25) mg/dL Glucose 193 H (74-99) mg/dL Calcium 9.2 (8.4-10.2) mg/dL AST 21 (17-59) U/L ALT 14 (4-49) U/L Alkaline Phosphatase 123 (38-126) U/L Total Protein 6.6 (6.3-8.2) g/dL Albumin 3.8 (3.5-5.0) g/dL Current Medications Generic Name Dose Route Start Last Admin Trade Name Freq PRN Reason Stop Dose Admin Acetaminophen 650 mg 08/21/20 21:24 Acetaminophen Tab 325 Mg Tab PO Q6HR PRN Mild Pain or Fever > 100.5 Hydrocodone Bitart/Acetaminophen 1 each 08/22/20 00:23 08/22/20 06:02 Hydrocodone/Apap 10-325mg 1 Each Tab PO 1 each QID PRN Administration Moderate Pain Atorvastatin Calcium 80 mg 08/22/20 21:00 Atorvastatin 80 Mg Tab PO HS DENIS Diltiazem HCl 30 mg 08/22/20 09:00 Diltiazem Oral 30 Mg Tab PO TID DENIS Sodium Chloride 1,000 mls @ 75 mls/hr 08/21/20 21:30 08/21/20 23:17 Saline 0.9% IV 75 mls/hr .[id number] DENIS Administration Insulin Aspart 0 unit 08/22/20 07:30 Insulin Aspart (Novolog) 100 Unit/Ml Vial SQ ACHS DENIS Protocol Naloxone HCl 0.2 mg 08/21/20 21:24 Naloxone 0.4 Mg/Ml 1 Ml Vial IV Q2M PRN Opioid Reversal Intake and Output 08/21/20 08/22/20 08/22/20 22:59 06:59 14:59 Other: Voiding Method Toilet Toilet Urinal Urinal # Voids 1 Weight 83.915 kg 08/21/20 19:38 08/21/20 19:38 <Estevan José R - Last Filed: 08/24/20 08:14> Physical Exam Vitals: Vital Signs BP 08/23/20 09:17 118/70 08/23/20 08:26 102/68 Results 08/23/20 05:46 08/21/20 19:38 CBC 08/23/20 Range/Units 05:46 WBC 6.29 (4.50-10.00) X 10*3/uL RBC 4.23 L (4.40-5.60) X 10*6/uL Hgb 11.0 L (13.0-17.0) g/dL Hct 38.3 L (39.6-50.0) % Plt Count 199 (140-440) X 10*3/uL 08/23/20 05:46 08/21/20 19:38
[2020-08-22] MEDS: SODIUM CHLORIDE 0.9% 1,000 ML IV SCH (11:30)
[2020-08-22] MEDS: HEPARIN SOD,PORK IN 0.45% NACL 25,000 UNIT in 0.45% NACL 1 250ML.BAG IV SCH (11:33)
[2020-08-22 11:45] LABS: Glucose,Whole Blood 200 mg/dL (75-99)
--- NOTE | 2020-08-22 15:06 | P.HPIM ---
History of Present Illness Pleasant 60-year-old with history of coronary disease and CABG in the past came in with complaints of neck pain and neck stiffness and numbness in the left arm denied any chest pain. Patient denied any fever chills. Patient can use to smoke in spite of present significant coronary artery disease patient had multiple stents in the past. Patient had an EKG which showed some significant ST-T wave changes in the inferior leads.'s also had mildly elevated troponin of 0.541. He is a symptom neurology is typical for cervical degenerative disc disease with radical apathy Review of Systems REVIEW OF SYSTEMS: CONSTITUTIONAL: No fever, no malaise, no fatigue. HEENT: No recent visual problems or hearing problems. Denied any sore throat. CARDIOVASCULAR: No orthopnea, PND, no palpitations, no syncope. PULMONARY: No shortness of breath, no cough, no hemoptysis. GASTROINTESTINAL: No diarrhea, no nausea, no vomiting, no abdominal pain. NEUROLOGICAL: No headaches, no weakness, no numbness. HEMATOLOGICAL: Denies any bleeding or petechiae. GENITOURINARY: Denies any burning micturition, frequency, or urgency. MUSCULOSKELETAL/RHEUMATOLOGICAL: Denies any joint pain, swelling, or any muscle pain. ENDOCRINE: Denies any polyuria or polydipsia. The rest of the 14-point review of systems is negative. Past Medical History Past Medical History: Coronary Artery Disease (CAD), Cancer, Chest Pain / Angina, Heart Failure, COPD, Diabetes Mellitus, Hyperlipidemia, Hypertension, Myocardial Infarction ([place]), Musculoskeletal Disorder, Pneumonia, Sleep Apnea/C PAP/BIPAP Additional Past Medical History / Comment(s): Cardiomyopathy/AICD, RONN with CPap use, bronchitis, NIDDM type II< chronic low back/bilateral hip/bilateral shoulder pain, bladder cancer with surgeries. Last Myocardial Infarction Date:: 01/2019 History of Any Multi-Drug Resistant Organisms: None Reported Past Surgical History: AICD, Bladder Surgery, Coronary Bypass/CABG, Heart Catheterization With Stent Additional Past Surgical History / Comment(s): PCIs with stents in , 2017 CABG 1 vessel, AICD 2018, DFTs, 2019 cystos/TURBs/BCG instillation, colonoscopy, hemorrhoidectomy. Past Anesthesia/Blood Transfusion Reactions: No Reported Reaction Date of Last Stent Placement:: 2018 Type of Cardiac Device: AICD Device Placement Date:: 09/28/17 Past Psychological History: Depression Additional Psychological History / Comment(s): Pt has his adult rony residing with him. He has a nebulizer. He no longer checks his glucose, but states he has a glucometer but no other diabetic supplies. Pt can drive. Smoking Status: Current every day smoker Past Alcohol Use History: None Reported Additional Past Alcohol Use History / Comment(s): Pt started smoking in 1976 and quit in 2016 then resumed smoking in 2018 and is a half ppd smoker Past Drug Use History: None Reported Additional Drug Use History / Comment(s): OCC USE ONLY - Past Family History Father Family Medical History: Cancer Additional Family Medical History / Comment(s): bone cancer Mother Family Medical History: Coronary Artery Disease (CAD), Diabetes Mellitus Additional Family Medical History / Comment(s): Mother had a [place] in her 40s and had CABG Brother(s) Family Medical History: Coronary Artery Disease (CAD), Diabetes Mellitus Medications and Allergies Home Medications Medication Instructions Recorded Confirmed Type Isosorbide Mononitrate ER [Imdur] 30 mg PO DAILY #30 tab.er.24h 02/13/1708/21 Rx FLUoxetine HCL [Sarafem] 20 mg PO DAILY 08/27/17 08/21/20 History Spironolactone [Aldactone] 25 mg PO DAILY #90 tablet 09/29/17 08/21/20 Rx Atorvastatin [Lipitor] 80 mg PO HS 03/12/18 08/21/20 History Hydrocodone/Acetaminophen [[place] 1 tab PO QID 06/30/18 08/21/20 History 10-325] Aspirin 81 mg PO DAILY #30 chew 07/08/18 08/21/20 Rx Umeclidinium Brm/Vilanterol Tr 1 puff INHALATION RT-DAILY 11/29/18 08/21/20 History [Anoro Ellipta 62.5-25 Mcg INH] Furosemide [Lasix] 20 mg PO BID@0800,1400 01/03/19 08/21/20 History Carvedilol [Coreg] 25 mg PO BID 12/27/19 08/21/20 History Warfarin Sodium [Jantoven] 2.5 mg PO SUMOWEFR@209912/27/19 08/21/20 History Warfarin Sodium [Jantoven] 5 mg PO TUTHSA@209912/27/19 08/21/20 History dilTIAZem HCL [Diltiazem HCl] 30 mg PO TID 12/27/19 08/21/20 History glipiZIDE [Glucotrol] 10 mg PO BID 12/27/19 08/21/20 History Losartan [Cozaar] 25 mg PO DAILY 08/21/20 08/21/20 History Nitroglycerin Sl Tabs [Nitrostat] 0.4 mg SL Q5M PRN 08/21/20 08/21/20 History Semaglutide [Ozempic] 0.25 mg SQ WE 08/21/20 08/21/20 History metOLazone [Zaroxolyn] 5 mg PO WE 08/21/20 08/21/20 History Allergies Allergy/AdvReac Type Severity Reaction Status Date / Time No Known Allergies Allergy Verified 08/21/20 19:17 Physical Exam Vitals: Vital Signs Temp Pulse Pulse Resp BP BP Pulse Ox 08/22/20 07:00 97.7 F 114 H 18 110/80 95 08/21/20 22:48 97.7 F 116 H 18 114/89 98 08/21/20 21:42 98.1 F 111 H 16 120/78 95 08/21/20 20:57 97.7 F 98 18 120/80 96 08/21/20 18:39 97.4 F L 116 H 20 132/85 100 Intake and Output 08/21/20 08/22/20 08/22/20 22:59 06:59 14:59 Other: Voiding Method Toilet Toilet Urinal Urinal # Voids 1 Weight 83.915 kg PHYSICAL EXAMINATION: GENERAL: The patient is alert and oriented x3, not in any acute distress. Well developed, well nourished. HEENT: Pupils are round and equally reacting to light. EOMI. No scleral icterus. No conjunctival pallor. Normocephalic, atraumatic. No pharyngeal erythema. No thyromegaly. CARDIOVASCULAR: S1 and S2 present. No murmurs, rubs, or gallops. PULMONARY: Chest is clear to auscultation, no wheezing or crackles. ABDOMEN: Soft, nontender, nondistended, normoactive bowel sounds. No palpable organomegaly. MUSCULOSKELETAL: No joint swelling or deformity. EXTREMITIES: No cyanosis, clubbing, or pedal edema. NEUROLOGICAL: Gross neurological examination did not reveal any focal deficits. SKIN: No rashes. Results CBC & Chem 7: 08/21/20 19:38 08/21/20 19:38 Labs: Abnormal Lab Results - Last 24 Hours (Table) 08/21/20 08/21/20 08/21/20 Range/Units 19:38 19:38 19:38 RBC 4.19 L (4.30-5.90) m/uL Hgb 11.3 L (13.0-17.5) gm/dL Hct 34.8 L (39.0-53.0) % RDW 19.1 H (11.5-15.5) % PT 12.7 H (9.0-12.0) sec INR 1.2 H (<1.2) APTT (22.0-30.0) sec Glucose 193 H (74-99) mg/dL POC Glucose (mg/dL) (75-99) mg/dL Troponin I (0.000-0.034) ng/mL 08/22/20 08/22/20 08/22/20 Range/Units 06:57 08:11 08:15 RBC (4.30-5.90) m/uL Hgb (13.0-17.5) gm/dL Hct (39.0-53.0) % RDW (11.5-15.5) % PT 13.7 H (9.0-12.0) sec INR 1.3 H (<1.2) APTT (22.0-30.0) sec Glucose (74-99) mg/dL POC Glucose (mg/dL) 236 H (75-99) mg/dL Troponin I 0.035 H* (0.000-0.034) ng/mL 08/22/20 08/22/20 08/22/20 Range/Units 11:44 12:58 12:58 RBC (4.30-5.90) m/uL Hgb (13.0-17.5) gm/dL Hct (39.0-53.0) % RDW (11.5-15.5) % PT (9.0-12.0) sec INR (<1.2) APTT 40.1 H (22.0-30.0) sec Glucose (74-99) mg/dL POC Glucose (mg/dL) 200 H (75-99) mg/dL Troponin I 0.541 H* (0.000-0.034) ng/mL Thrombosis Risk Factor Assmnt - Choose All That Apply Each Factor Represents 1 point: Age 41-60 years Thrombosis Risk Factor Assessment Total Risk Factor Score: 1 Thrombosis Risk Factor Assessment Level: Low Risk Assessment and Plan Plan: -Neck pain: Secondary to cervical degenerative cc and radiculopathy. -Possibility of non-ST elevation myocardial infarction with elevated troponins patient the has significant coronary artery disease history patient the will undergo cardiac catheterization tomorrow patient is presently on IV heparin -History of ischemic cardiomyopathy patient has an AICD, and his ejection fraction is unknown at this time. Endocardium is being obtained. Patient has chronic systolic dysfunction without any acute exacerbation at this time And-atr ial fibrillation paroxysmal on Coumadin so that we can INR patient is on IV heparin -History of bladder cancer in patient received chemotherapy as recent as 2 months ago -Hypertension Hyperlipidemia -Type 2 diabetes mellitus #COPD without any acute exacerbation patient continues to smoke. -
[2020-08-22 17:26] LABS: Glucose,Whole Blood 273 mg/dL (75-99)
--- NOTE | 2020-08-22 17:52 | ECHOF ---
Referral Reason:cp MEASUREMENTS -------- HEIGHT: 162.6 cm WEIGHT: 83.9 kg BP: RVIDd: 3.5 cm (< 3.3) IVSd: 1.0 cm (0.6 - 1.1) LVIDd: 5.6 cm (3.9 - 5.3) LVPWd: 1.3 cm (0.6 - 1.1) IVSs: 1.2 cm LVIDs: 4.8 cm LVPWs: 1.6 cm LA Diam: 4.5 cm (2.7 - 3.8) Ao Diam: 2.8 cm (2.0 - 3.7) AV Cusp: 1.2 cm (1.5 - 2.6) LA Diam: 4.5 cm (2.7 - 3.8) MV EXCURSION: 16.659 mm (> 18.000) MV EF SLOPE: 94 mm/s (70 - 150) EPSS: 1.0 cm RAP: 5.00 mmHg RVSP: 46.14 mmHg FINDINGS -------- Pacerwire seen in RV and RA. This was a technically good study. The left ventricular size is normal. There is severe global hypokinesis of LV . Overall left vent ricular systolic function is severely impaired with, an EF between 20 - 25 %. The right ventricle is normal in size. The left atrium is moderately dilated. The right atrial size is normal. There is mild to moderate aortic valve sclerosis. There is no evidence of aortic regurgitation. Mild mitral annular calcification present. Mild mitral regurgitation is present. Mild tricuspid regurgitation present. There is moderate pulmonary hypertension. The right ventric ular systolic pressure, as measured by Doppler, is 46.14mmHg. Trace/mild (physiologic) pulmonic regurgitation. There is no pericardial effusion. CONCLUSIONS -------- 1. Pacerwire seen in RV and RA. 2. This was a technically good study. 3. The left ventricular size is normal. 4. There is severe global hypokinesis of LV . 5. Overall left ventricular systolic function is severely impaired with, an EF between 20 - 25 %. 6. The right ventricle is normal in size. 7. The left atrium is moderately dilated. 8. The right atrial size is normal. 9. There is mild to moderate aortic valve sclerosis. 10. Mild mitral annular calcification present. 11. Mild mitral regurgitation is present. 12. Mild tricuspid regurgitation present. 13. There is moderate pulmonary hypertension. 14. The right ventricular systolic pressure, as measured by Doppler, is 46.14mmHg. 15. Trace/mild (physiologic) pulmonic regurgitation. 16. There is no pericardial effusion. KEG FILLER: Elvia Plascencia RDCS
[2020-08-22] MEDS: HEPARIN SODIUM 1,000 UN/ML (10ML VL) IV PRN (18:30)
--- NOTE | 2020-08-22 20:28 | XR ---
EXAMINATION TYPE: XR cervical spine limited, 4 views DATE OF EXAM: 08/22/2020 Comparison: None Clinical History: 60-year-old male with neck pain Findings: Osteopenia. Partially visualized median sternotomy wires and pacer leads. No predental space widening or prevertebral soft tissue swelling. Mild endplate spondylosis throughout the cervical spine. No ma lalignment. Normal odontoid view. Impression: Mild endplate spondylosis. No prevertebral soft tissue swelling or malalignment.
[2020-08-22] MEDS ORDERED: WARFARIN 5 MG TAB PO ONE (21:00)
[2020-08-22] MEDS ORDERED: ATORVASTATIN 80 MG TAB PO SCH (21:00)
[2020-08-22 21:06] LABS: Glucose,Whole Blood 166 mg/dL (75-99)
[2020-08-22] MEDS ORDERED: SODIUM CHLORIDE 0.9% 1,000 ML in EMPTY BAG 1 BAG IV ONE (23:59)
[2020-08-23] MEDS: HEPARIN SODIUM 1,000 UN/ML (10ML VL) IV PRN (02:07)
[2020-08-23] MEDS: SODIUM CHLORIDE 0.9% 1,000 ML IV SCH (02:12)
[2020-08-23] MEDS ORDERED: ASPIRIN 81 MG PO ONE (06:00)
[2020-08-23 06:29] LABS: INR 1.4 (<1.2); Prothrombin Time 13.8 sec (9.0-12.0)
[2020-08-23] MEDS ORDERED: HEPARIN SODIUM,PORCINE 2,500 UNIT in SODIUM CHLORIDE 0.9% 250 ML IRRIGATION PRN (07:00)
[2020-08-23] MEDS ORDERED: HEPARIN SODIUM,PORCINE 10,000 UNIT in SODIUM CHLORIDE 0.9% 1,000 ML IRRIGATION PRN (07:00)
[2020-08-23 07:16] LABS: Glucose,Whole Blood 187 mg/dL (75-99)
[2020-08-23] MEDS: HYDROcodone/APAP 10-325MG 1 EACH TAB PO PRN (07:34)
[2020-08-23 07:40] VITALS: PULSE 109; RESP 18; TEMP 97.5
[2020-08-23] MEDS: INSULIN ASPART (NovoLOG) 100 UNIT/ML VIAL SQ SCH (08:27)
[2020-08-23] MEDS: LOSARTAN 25 MG TAB PO SCH (08:28)
[2020-08-23] MEDS: carvediloL 12.5 MG TAB PO SCH (08:28)
[2020-08-23] MEDS: ISOSORBIDE MONONITRATE ER 30 MG TAB.ER.24H PO SCH (08:28)
[2020-08-23] MEDS: FUROSEMIDE 20 MG TAB PO SCH (08:28)
[2020-08-23] MEDS: SPIRONOLACTONE 25 MG TAB PO SCH (08:28)
[2020-08-23] MEDS: FLUoxetine HCL 20 MG CAP PO SCH (08:28)
[2020-08-23] MEDS: DILTIAZEM ORAL 30 MG TAB PO SCH (08:32)
[2020-08-23 09:18] LABS: Basophils # (A) 0.07 X 10*3/uL (0.00-0.10); Basophils % (A) 1.1 %; Eosinophils # (A) 0.07 X 10*3/uL (0.04-0.35); Eosinophils % (A) 1.1 %; HCT 38.3 % (39.6-50.0); Lymphocytes # (A) 1.42 X 10*3/uL (0.90-5.00); Lymphocytes % (A) 22.6 %; MCHC 28.7 g/dL (32.0-37.0); MCV 90.5 fL (80.0-97.0); Mean Platelet Volume 10.3 fL (9.5-12.2); Monocytes # (A) 0.47 X 10*3/uL (0.20-1.00); Monocytes % (A) 7.5 %; Neutrophils # (A) 4.18 X 10*3/uL (1.80-7.70); Neutrophils % (A) 66.4 %; Platelet Count 199 X 10*3/uL (140-440); RBC 4.23 X 10*6/uL (4.40-5.60); RDW 20.9 % (11.5-14.5); WBC 6.29 X 10*3/uL (4.50-10.00)
[2020-08-23 09:19] VITALS: BP 118/70
[2020-08-23] MEDS ORDERED: fentaNYL (PF) 50 MCG/ML 2 ML AMP ONE (10:48)
[2020-08-23] MEDS ORDERED: IV FLUID CONTINUATION 200 ML IV ONE (11:05)
[2020-08-23] MEDS ORDERED: fentaNYL (PF) 50 MCG/ML 2 ML AMP IV ONE (11:12)
[2020-08-23] MEDS ORDERED: LIDOCAINE 1% INJ 10MG/ML (20 ML MDV) SQ ONE ×2 (11:13→11:20)
[2020-08-23] MEDS: HEPARIN SOD,PORK IN 0.45% NACL 25,000 UNIT in 0.45% NACL 1 250ML.BAG IV SCH (11:21)
[2020-08-23] MEDS ORDERED: SODIUM CHLORIDE 0.9% 1,000 ML IV ONE (11:30)
[2020-08-23] MEDS ORDERED: NOREPINEPHRINE 4 MG in SODIUM CHLORIDE 0.9% 250 ML IV ONE (11:35)
[2020-08-23] MEDS ORDERED: CLOPIDOGREL 75 MG TAB ONE (11:46)
[2020-08-23] MEDS: HEPARIN SODIUM 1,000 UN/ML (10ML VL) IV ONE ×2 (11:46→12:02)
[2020-08-23] MEDS ORDERED: HEPARIN SODIUM 1,000 UN/ML (10ML VL) ONE ×2 (11:46→12:14)
[2020-08-23] MEDS ORDERED: CLOPIDOGREL 75 MG TAB PO ONE ×2 (11:50→12:44)
[2020-08-23] MEDS ORDERED: ONDANSETRON 4 MG/2 ML VIAL ONE (12:12)
[2020-08-23] MEDS ORDERED: HEPARIN SODIUM 1,000 UN/ML (10ML VL) IV ONE (12:16)
[2020-08-23] MEDS ORDERED: ONDANSETRON 4 MG/2 ML VIAL IVP ONE (12:16)
[2020-08-23] MEDS ORDERED: FUROSEMIDE 10 MG/ML 4 ML VIAL ONE ×2 (12:42→12:45)
[2020-08-23] MEDS ORDERED: FUROSEMIDE 10 MG/ML 4 ML VIAL IV ONE (12:42)
[2020-08-23] MEDS ORDERED: IOPAMIDOL-370 125ML BTL INJ ONE (12:43)
[2020-08-23] MEDS ORDERED: IOPAMIDOL-370 100ML BTL INJ ONE (12:43)
--- NOTE | 2020-08-23 15:06 | P.PN ---
Subjective Pleasant 60-year-old with history of coronary disease and CABG in the past came in with complaints of neck pain and neck stiffness and numbness in the left arm denied any chest pain. Patient denied any fever chills. Patient can use to smoke in spite of present significant coronary artery disease patient had multiple stents in the past. Patient had an EKG which showed some significant ST-T wave changes in the inferior leads.'s also had mildly elevated troponin of 0.541. He is a symptom neurology is typical for cervical degenerative disc dis ease with radiculopathy. 08/23/2020 Patient's neck pain is better patient is awaiting cardiac catheterization. Constitutional: Denied any fatigue denied any fever. Cardio vascular: denied any chest pain, palpitations Gastrointestinal denied any nausea vomiting Pulmonary: Denied any shortness of breath cough Neurologic denied any new focal deficits All inpatient medications were reviewed and appropriate changes in these medications as dictated in the interval history and assessment and plan. Objective - Vital Signs Vital signs: Vital Signs Temp 97.5 F L 08/23/20 07:00 Pulse 109 H 08/23/20 07:00 Resp 18 08/23/20 07:00 BP 118/70 08/23/20 09:17 Pulse Ox 96 08/23/20 07:00 Intake & Output 08/22/20 08/23/20 08/23/20 18:59 06:59 18:59 Intake Total 70.333 90.6 393 Balance 70.333 90.6 393 Intake: IV 393 Intake, IV Titration 70.333 90.6 Amount Heparin Sod,Pork in 0.45% 70.333 90.6 NaCl 25,000 unit In 0.45 % NaCl 1 250ml.bag @ 11. 917 UNITS/KG/HR 10 mls/hr IV .Q24H [facility] Rx#: [id number] Other: Voiding Method Toilet Toilet Toilet Urinal Urinal Urinal # Voids 1 1 - Exam PHYSICAL EXAMINATION: GENERAL: The patient is alert and oriented x3, not in any acute distress. Well developed, well nourished. HEENT: Pupils are round and equally reacting to light. EOMI. No scleral icterus. No conjunctival pallor. Normocephalic, atraumatic. No pharyngeal erythema. No thyromegaly. CARDIOVASCULAR: S1 and S2 present. No murmurs, rubs, or gallops. PULMONARY: Chest is clear to auscultation, no wheezing or crackles. ABDOMEN: Soft, nontender, nondistended, normoactive bowel sounds. No palpable organomegaly. MUSCULOSKELETAL: No joint swelling or deformity. EXTREMITIES: No cyanosis, clubbing, or pedal edema. NEUROLOGICAL: Gross neurological examination did not reveal any focal deficits. SKIN: No rashes. - Labs CBC & Chem 7: 08/23/20 05:46 08/21/20 19:38 Labs: Abnormal Lab Results - Last 24 Hours (Table) 08/22/20 08/22/20 08/23/20 Range/Units 17:25 21:05 01:06 RBC (4.40-5.60) X 10*6/uL Hgb (13.0-17.0) g/dL Hct (39.6-50.0) % MCH (27.0-32.0) pg MCHC (32.0-37.0) g/dL RDW (11.5-14.5) % Immature Gran # (0.00-0.04) X 10*3/uL PT (9.0-12.0) sec INR (<1.2) APTT 30.5 H (22.0-30.0) sec POC Glucose (mg/dL) 273 H 166 H (75-99) mg/dL 08/23/20 08/23/20 08/23/20 Range/Units 05:46 05:46 07:14 RBC 4.23 L (4.40-5.60) X 10*6/uL Hgb 11.0 L (13.0-17.0) g/dL Hct 38.3 L (39.6-50.0) % MCH 26.0 L (27.0-32.0) pg MCHC 28.7 L (32.0-37.0) g/dL RDW 20.9 H (11.5-14.5) % Immature Gran # 0.08 H (0.00-0.04) X 10*3/uL PT 13.8 H (9.0-12.0) sec INR 1.4 H (<1.2) APTT (22.0-30.0) sec POC Glucose (mg/dL) 187 H (75-99) mg/dL Assessment and Plan Plan: -Neck pain: Secondary to cervical degenerative disc disease and radiculopathy. -Possibility of non-ST elevation myocardial infarction with elevated troponins patient the has significant coronary artery disease history patient the will undergo cardiac catheterization today patient is presently on IV heparin -History of ischemic cardiomyopathy patient has an AICD, and his ejection fraction is unknown at this time. Endocardium is being obtained. Patient has chronic systolic dysfunction without any acute exacerbation at this time -atrial fibrillation paroxysmal on Coumadin so that we can INR patient is on IV heparin -History of bladder cancer in patient received chemotherapy as recent as 2 months ago -Hypertension Hyperlipidemia -Type 2 diabetes mellitus #COPD without any acute exacerbation patient continues to smoke. -
--- NOTE | 2020-08-23 16:42 | CC ---
CARDIAC CATHETERIZATION REPORT INDICATION: Non STEMI This is a patient with known coronary artery disease status post prior CABG, comes in with symptoms of unstable angina with troponin elevation and was advised to undergo cardiac catheterization. He had a GODINEZ to LAD and had angioplasty of the circumflex coronary artery in the past. PROCEDURE NOTE: After obtaining informed consent, left heart catheterization, coronary angiogram and selective injection of the GODINEZ was performed via the left femoral artery. We could not obtain any access from the right side. The patient tolerated the procedures but had hypotension and we had start him on Levophed. Procedure was completed uneventfully. FINDING: HEMODYNAMICS: Left ventricular systolic pressure is 26 mm. There is no significant gradient across the aortic valve. LEFT VENTRICULOGRAM: Not performed. ANGIOGRAPHIC DATA: [place] CORONARY ARTERIES: Left main coronary artery appears calcified but is free of significant stenosis. Divides into left anterior descending coronary artery and circumflex coronary artery. LAD is occluded proximally. Circumflex coronary artery has developed a 95% stenosis in the ostial portion. Right coronary artery is chronically occluded proximally. GODINEZ to LAD appears patent. Proximal and distal anastomotic sites are free of disease and the red devil LAD appears normal. CONCLUSION: Severe three-vessel coronary artery disease with patent GODINEZ to LAD, severe stenosis involving the ostial portion of the circumflex coronary artery. PLAN: Dr. Merlos the on-call necktie turner reviewed angiographic data and will attempt angioplasty of the circumflex coronary artery. The patient appears stable clinically. Does not have any symptoms. He is not short of breath. Because of hypotension, was started on Levophed 5 mcg. He is on multiple medications that could drop his blood pressure, has cardiomyopathy with severe LV dysfunction MMODL / IJN: [id number] / [facility]
[2020-08-23] MEDS ORDERED: WARFARIN 5 MG TAB PO ONE (18:00)
--- NOTE | 2020-08-23 19:22 | PTCA ---
PERCUTANEOUSTRANS CORORONARY ANGIOGRAPHY Mr. Adams is a 60-year-old male with known history of severe ischemic cardiomyopathy status post coronary artery bypass grafting, ICD implantation who presented with symptoms of progressive dyspnea, troponin elevation, underwent cardiac catheterization by Dr. José, was found to have critical in stent restenosis in the proximal left circumflex. In view of that, recommendation regarding angioplasty and stenting. The procedure as well as the risks and the complications were discussed with the patient who is in full understanding and agreement. PROCEDURE: A 6-Hungarian EBU 3.75 guiding catheter was introduced in the system. After cannulating the left main a 0.014 balanced medium weight J-wire was advanced across the lesion positioned distally. Then a 3.0 x 12 mm NC Trek balloon was advanced and inflation at 18 atmospheres was done. Following that, the balloon was removed and a 3.5 x 18 mm Xience Samantha stent was advanced, deployed and post dilated at 18 atmospheres. Following that, the balloon was removed and a 3.75 x 12 mm NC Trek balloon was advanced and inflations at 16 atmospheres was done. Following that, the balloon was removed and a 4.0 x 12 mm NC Trek balloon was advanced and inflation at 16 atmospheres was done. After the last inflation, after appropriate wait, the balloon and the guidewire were withdrawn back in the guiding catheter. Images were obtained and repeated. Those images reveal stable successful stenting. At that point, the guiding catheter, the balloon and the guidewire removed the sheath was sutured in place. Of note, the patient received a total of 11,000 units of intravenous heparin during the procedure and the ACT was followed. During the procedure, he had an episode of nausea and transient unresponsiveness that resolved. The patient was hypotensive prior to the start of the procedure and was on Levophed. After the end of the procedure and reviewing the images with the patient, before moving the patient out of the room, he became unresponsive again and had no blood pressure. At that time, CPR was initiated. He was intubated and received epinephrine and bicarb per protocol. In spite of CPR, there was no ability to restore blood pressure. Of note that his rhythm has not changed. He was in PEA. He was in atrial fibrillation and that has not changed. At that time, and after discussion with Dr. José, his primary technical business systems analyst, the CPR was stopped. The patient was pronounced . The family was informed. GABRIELA / NIKOLAI: [id number] / MTDNely
[2020-08-23] MEDS ORDERED: WARFARIN 5 MG TAB PO SCH (21:00)
[2020-08-24] MEDS ORDERED: ASPIRIN 81 MG PO SCH (09:00)
--- NOTE | 2020-08-24 16:07 | P.DS ---
Providers Date of admission: 08/22/20 12:05 Expected date of discharge: 08/23/20 Attending physician: Pallavi An Consults: 08/21/20 21:28 Consult Physician Urgent Consulting Provider: Estevan José Consult Reason/Comments: chest pain Do you want consulting provider notified?: Yes Primary care physician: [facility] Course: Patient was admitted with neck pain and shoulder pain. Patient has been well elevated troponins patient was taken to [facility] and found to have a critical in-stent stenosis in LAD. Patient subsequently had PTCA and stenting. Postprocedure patient became unresponsive was in pulseless electrical activity, CPR was initiated and patient was subsequently pronounced . Please refer to nursing documentation from the [facility] nurses from yesterday for exact time of . Patient Condition at Discharge: Good Plan - Discharge Summary Discharge Rx Participant: No New Discharge Prescriptions: No Action Isosorbide Mononitrate ER [Imdur] 30 mg PO DAILY #30 tab.er.24h FLUoxetine HCL [Sarafem] 20 mg PO DAILY Spironolactone [Aldactone] 25 mg PO DAILY #90 tablet Atorvastatin [Lipitor] 80 mg PO HS Hydrocodone/Acetaminophen [[place] 10-325] 1 tab PO QID Aspirin 81 mg PO DAILY #30 chew Umeclidinium Brm/Vilanterol Tr [Anoro Ellipta 62.5-25 Mcg INH] 1 puff INHALATION RT-DAILY Furosemide [Lasix] 20 mg PO BID@0800,1400 dilTIAZem HCL [Diltiazem HCl] 30 mg PO TID Carvedilol [Coreg] 25 mg PO BID glipiZIDE [Glucotrol] 10 mg PO BID Warfarin Sodium [Jantoven] 2.5 mg PO SUMOWEFR@2100 Warfarin Sodium [Jantoven] 5 mg PO TUTHSA@2100 Semaglutide [Ozempic] 0.25 mg SQ WE metOLazone [Zaroxolyn] 5 mg PO WE Nitroglycerin Sl Tabs [Nitrostat] 0.4 mg SL Q5M PRN PRN Reason: Chest Pain Losartan [Cozaar] 25 mg PO DAILY Discharge Medication List Isosorbide Mononitrate ER [Imdur] 30 mg PO DAILY #30 tab.er.24h 02/13/17 [Rx] FLUoxetine HCL [Sarafem] 20 mg PO DAILY 08/27/17 [History] Spironolactone [Aldactone] 25 mg PO DAILY #90 tablet 09/29/17 [Rx] Atorvastatin [Lipitor] 80 mg PO HS 03/12/18 [History] Hydrocodone/Acetaminophen [[place] 10-325] 1 tab PO QID 06/30/18 [History] Aspirin 81 mg PO DAILY #30 chew 07/08/18 [Rx] Umeclidinium Brm/Vilanterol Tr [Anoro Ellipta 62.5-25 Mcg INH] 1 puff INHALATION RT-DAILY 11/29/18 [History] Furosemide [Lasix] 20 mg PO BID@0800,1400 01/03/19 [History] Carvedilol [Coreg] 25 mg PO BID 12/27/19 [History] Warfarin Sodium [Jantoven] 2.5 mg PO SUMOWEFR@209912/27/19 [History] Warfarin Sodium [Jantoven] 5 mg PO TUTHSA@209912/27/19 [History] dilTIAZem HCL [Diltiazem HCl] 30 mg PO TID 12/27/19 [History] glipiZIDE [Glucotrol] 10 mg PO BID 12/27/19 [History] Losartan [Cozaar] 25 mg PO DAILY 08/21/20 [History] Nitroglycerin Sl Tabs [Nitrostat] 0.4 mg SL Q5M PRN 08/21/20 [History] Semaglutide [Ozempic] 0.25 mg SQ WE 08/21/20 [History] metOLazone [Zaroxolyn] 5 mg PO WE 08/21/20 [History] Follow up Appointment(s)/Referral(s): Mike Olivera MD [Primary Care Provider] - 1-2 days Discharge Disposition: - Preliminary Cause of Preliminary Cause of : Acute myocardial infarction
[2020-08-24] MEDS ORDERED: WARFARIN 2.5 MG TAB PO SCH (21:00)
--- NOTE | 2020-08-31 10:15 | CDI ---
Documentation Clarification Form Date: 08/31/2020 10:00:18 AM From: Tanja Jonas CCS, CCDS Admit Date: 08/22/2020 12:05:00 PM Patient Name: Darien Adams Visit Number: [id number] Discharge Date: 08/23/2020 07:53:00 PM ATTENTION: The Clinical Documentation Specialists (CDI) and [facility] Coding Staff appreciate your assistance in clarifying documentation. Please respond to the clarification below the line at the bottom and electronically sign. The CDI & [facility] Coding staff will review the response and follow-up if needed. Please note: Queries are made part of the Legal Health Record. If you have any questions, please contact the author of this message via ITS. Dr. Katya Merlos: There is documented Hypotension requiring initiation of Levophed. Additional documentation regarding the patient's condition is requested. History/Risk Factors per the 08/21 ED Note: CAD with history of [place], stents, CABG & AICD for Ischemic Cardiomyopathy; COPD, NIDDM, Hypertension, Chronic Systolic Heart Failure, Hypercholesterolemia, Bladder Cancer status post TURB and Chemotherapy most recently 2 months ago. Current Smoker 1ppd. Clinical Indicators: Presented to the ED on 08/21 with left side neck & arm pain and tingling, took Nitro at home with some relief. 08/21 VS: T 97.4, P 116, R 20, BP 132/85, PO 100 RA, BMI: 25.8 08/21 LAB: Hgb 11.3, PT 12.7, INR 1.2, Glucose 193 08/21 Troponins: 0.016, 08/22: 0.035, 0.541 08/21 BP 132/85 - 114/89 08/22 BP 99/64 - 104/70 08/23 BP 90/59 @ 0200 08/23 To chemical lab technician @ 0954, per paving and surfacing labourer report, the patient tolerated the procedure but had hypotension & was started on Levophed. 08/23 PTCA: Hypotensive at the start of the procedure on Levophed. Also in Atrial fibrillation. Unable to restore BP and patient ultimately . 08/21 EKG: R 115, sinus rhythm, 1st degree AV block, Prolonged QT (unchanged from 01/18/2020) Treatment 6/1: IM Norflex 6/2: po [place], Insulin sq, po Lasix, po Zaroxolyn, po Aspirin, po Coreg, po Cardizem, po Imdur, po Aldactone, IV Heparin /3: IV NaCl 1,000 mls @ 83.915 mls/hr q11H, po Aspirin, IV Heparin, IV Levophed, IV Epinephrine, IV Lasix40 mg x1 Please clarify the if the following condition(s) were present: [ ] Hypovolemic Shock [ xxxx] Cardiogenic Shock [ ] Other, please specify [ ] Unable to determine (Template Last Revised: May 2020) MTDD
--- NOTE | 2020-08-31 10:32 | CDI ---
Documentation Clarification Form Date: 08/31/2020 10:16:46 AM From: Tanja Jonas CCS, CCDS Admit Date: 08/22/2020 12:05:00 PM Patient Name: Darien Adams Visit Number: [id number] Discharge Date: 08/23/2020 07:53:00 PM ATTENTION: The Clinical Documentation Specialists (CDI) and [facility] Coding Staff appreciate your assistance in clarifying documentation. Please respond to the clarification below the line at the bottom and electronically sign. The CDI & [facility] Coding staff will review the response and follow-up if needed. Please note: Queries are made part of the Legal Health Record. If you have any questions, please contact the author of this message via ITS. Dr. Jose Powell: Diabetes Type II is documented throughout the chart. The patient's Blood Glucose levels were elevated on admission and remained elevated, the patient's home meds include Glipizide 10 mg BID. Additional specificity regarding the Diabetes diagnosis is requested. History/Risk Factors per the 08/22 H/P: CAD status post [place], CABG, Heart Cath w/stents & AICD for ischemic cardiomyopathy, DM II, Atrial Fibrillation, Hypertension, Hyperlipidemia, RONN, Bladder Cancer status post TURB and Chemotherapy (most recent 2 months ago), Current Smoker 1ppd. Clinical Indicators: Presented to the ED on 08/21 with Neck & left side arm pain & tingling. ED Clinical Impression: Chest Pain 08/22 H/P: Neck pain secondary to cervical degenerative disease & radiculopathy, Possible NSTEMI w/elevated Troponins, Paroxysmal Atrial Fibrillation on Coumadin. 08/21 VS: T 97.4, P 116, R 20, BP 132/85, PO 100 RA, BMI: 25.8 08/21 LAB/Glucose: 193 08/22: 236 - 200 - 273 - 166 08/23: 187 Treatment 08/22 Insulin 100 unit SQ ordered. Patient went to the R Developer for Left Heart Catheterization with subsequent PTCA & stenting, went into PEA, CPR given, patient ultimately lost BP and . Please clarify the following diabetic condition(s) [ ] Diabetes Type 2 with Hyperglycemia [ ] Diabetes Type 2 without Hyperglycemia [ ] Other, please specify [ ] Unable to Determine (Template Last Revised: May 2020) Diabetes Type 2 with Hyperglycemia MTDD
== END 2020-08-23 19:53 | disposition expired | DRG 247 ==
LOC: EC 18:33 → 6NMEDSUR 21:16 → OBSVTOIN 08-22 12:05
PROVIDERS: ADMIT Hospitalist; ATTEND Hospitalist
PROC: 5A12012 Performance of Cardiac Output, Single, Manual (ICD-10-PCS; 2020-08-23)
PROC: 0BH17EZ Insertion of Endotracheal Airway into Trachea, Via Natural or Artificial Opening (ICD-10-PCS; 2020-08-23)
PROC: 4A023N7 Measurement of Cardiac Sampling and Pressure, Left Heart, Percutaneous Approach (ICD-10-PCS; 2020-08-23)
PROC: B2111ZZ Fluoroscopy of Multiple Coronary Arteries using Low Osmolar Contrast (ICD-10-PCS; 2020-08-23)
PROC: 027034Z Dilation of Coronary Artery, One Artery with Drug-eluting Intraluminal Device, Percutaneous Approach (ICD-10-PCS; principal; 2020-08-23 10:30)
PROC: 3E033XZ Introduction of Vasopressor into Peripheral Vein, Percutaneous Approach (ICD-10-PCS; 2020-08-23 10:30)
DX: I21.4 Non-ST elevation (NSTEMI) myocardial infarction (principal); I50.22 Chronic systolic (congestive) heart failure; I47.2 Ventricular tachycardia; T82.855A Stenosis of coronary artery stent, initial encounter; I25.10 Atherosclerotic heart disease of native coronary artery without angina pectoris; Z92.21 Personal history of antineoplastic chemotherapy; I25.2 Old myocardial infarction; J44.9 Chronic obstructive pulmonary disease, unspecified; Z95.810 Presence of automatic (implantable) cardiac defibrillator; Z20.822 Contact with and (suspected) exposure to COVID-19; I46.9 Cardiac arrest, cause unspecified; R57.0 Cardiogenic shock; Z95.1 Presence of aortocoronary bypass graft; C67.9 Malignant neoplasm of bladder, unspecified; Z79.01 Long term (current) use of anticoagulants; E11.65 Type 2 diabetes mellitus with hyperglycemia; I25.5 Ischemic cardiomyopathy; I48.0 Paroxysmal atrial fibrillation; R79.1 Abnormal coagulation profile; I11.0 Hypertensive heart disease with heart failure; Z82.49 Family history of ischemic heart disease and other diseases of the circulatory system; Z83.3 Family history of diabetes mellitus; M50.10 Cervical disc disorder with radiculopathy, unspecified cervical region; F17.210 Nicotine dependence, cigarettes, uncomplicated; Z79.82 Long term (current) use of aspirin; Y83.1 Surgical operation with implant of artificial internal device as the cause of abnormal reaction of the patient, or of later complication, without mention of misadventure at the time of the procedure; Z79.84 Long term (current) use of oral hypoglycemic drugs; E78.00 Pure hypercholesterolemia, unspecified; F32.9 Major depressive disorder, single episode, unspecified; I27.20 Pulmonary hypertension, unspecified; Z80.8 Family history of malignant neoplasm of other organs or systems; Z79.891 Long term (current) use of opiate analgesic; Z95.5 Presence of coronary angioplasty implant and graft
CPT/HCPCS: 36415; 71046; 72040; 80053; 83735; 84484; 85025; 85610; 85730; 87635; 92950; 93005; 93306; 93458; 96360; 96361; 96372; 99285